=== PATIENT | male | born 1955 | race Caucasian/White ===

== ENCOUNTER 2017-02-04 21:30 | Inpatient (IN) | payer MEDICARE, MEDICAID ==
[2017-02-04] MEDS ORDERED: NORMAL SALINE 1000 ML 1,000 ML IV ONE ×2 (21:40→23:06)
[2017-02-04] MEDS ORDERED: NORMAL SALINE 1000 ML 1,000 ML IV PRN (21:40)
[2017-02-04 22:01] LABS: MEAN CORPUSCULAR HEMOGLOBIN 29.5 pg (27.0-33.4); MEAN CORPUSCULAR HGB CONC 34.2 g/dL (32.0-36.0); MEAN CORPUSCULAR VOLUME 86 fl (80-97); PLATELET COUNT 233 10^3/uL (150-450); RED BLOOD COUNT 4.74 10^6/uL (4.35-5.55); RED CELL DISTRIBUTION WIDTH 13.7 % (11.5-14.0); WHITE BLOOD COUNT 15.7 10^3/uL (4.0-10.5)
[2017-02-04 22:11] LABS: ALANINE AMINOTRANSFERASE 53 U/L (21-72); ALBUMIN 3.6 g/dL (3.5-5.0); ALKALINE PHOSPHATASE 56 U/L (38-126); ANION GAP 14 (5-19); ASPARTATE AMINO TRANSFERASE 27 U/L (17-59); BILIRUBIN,DIRECT 0.4 mg/dL (0.0-0.4); BILIRUBIN,TOTAL 0.7 mg/dL (0.2-1.3); BLOOD UREA NITROGEN 16 mg/dL (7-20); CALCIUM 8.6 mg/dL (8.4-10.2); CARBON DIOXIDE 21 mmol/L (22-30); CHLORIDE 105 mmol/L (98-107); GLUCOSE 148 mg/dL (75-110); POTASSIUM 3.3 mmol/L (3.6-5.0); SODIUM 140.1 mmol/L (137-145); TOTAL PROTEIN 6.3 g/dL (6.3-8.2)
[2017-02-04 22:26] LABS: ABSOLUTE LYMPHOCYTES# (MANUAL) 1.3 10^3/uL (0.5-4.7); ABSOLUTE MONOCYTES # (MANUAL) 0.6 10^3/uL (0.1-1.4); ABSOLUTE NEUTROPHILS# (MANUAL) 13.8 10^3/uL (1.7-8.2); BAND NEUTROPHILS % (MANUAL) 2 % (3-5); BASOPHILS % (MANUAL) 0 % (0-2); EOSINOPHILS % (MANUAL) 0 % (0-6); LYMPHOCYTES % (MANUAL) 8 % (13-45); MONOCYTES % (MANUAL) 4 % (3-13); SEGMENTED NEUTROPHILS % (MAN) 86 % (42-78); TOTAL CELLS COUNTED 100
[2017-02-04 22:28] LABS: TOXIC GRANULATION 1+; TOXIC VACUOLATION PRESENT
[2017-02-04 22:29] LABS: PLATELET COMMENT ADEQUATE; PLATELET LARGE PRESENT; SCHISTOCYTES SLIGHT; TEAR DROP CELLS SLIGHT
--- NOTE | 2017-02-04 22:44 | RADIOLOGY REPORT (SQ) ---
EXAM DESCRIPTION: CHEST PA/LAT COMPLETED DATE/TIME: 02/04/2017 10:09 pm REASON FOR STUDY: Fever/cough COMPARISON: None. EXAM PARAMETERS: NUMBER OF VIEWS: two views TECHNIQUE: Digital Frontal and Lateral radiographic views of the chest acquired. RADIATION DOSE: NA LIMITATIONS: none FINDINGS: LUNGS AND PLEURA: Bibasilar airspace opacities and small pleural effusions. No pneumothor ax. MEDIASTINUM AND HILAR STRUCTURES: No masses or contour abnormalities. HEART AND VASCULAR STRUCTURES: Heart normal size. No evidence for failure. BONES: No acute findings. HARDWARE: None in the chest. OTHER: No other significant finding. IMPRESSION: Bibasilar airspace opacities and small pleural effusions. TECHNICAL DOCUMENTATION: JOB ID: [id number] [place]-72 2010 [employer]- All Rights Reserved
[2017-02-04] MEDS ORDERED: LEVOFLOXACIN 750 MG/D5W RTU 750 MG/150 ML RTUPB IV ONE (23:05)
--- NOTE | 2017-02-04 23:10 | ER Document Report ---
ED General - General Chief Complaint: Altered Mental Status Stated Complaint: ALTERED MENTAL STATUS Time Seen by Provider: 02/04/17 22:00 Cannot obtain history due to: Mentally challenged Notes: Patient is a 7-year-old male with unknown past medical history, very poor historian, who presents from [facility] hospital[facility] with concerns of altered mental status, cough and fever. The patient himself does not know why he is here, who sent him here, or what symptoms he is having. He is only able to tell me that he has been coughing. Staff at the facility apparently state that this is his baseline TRAVEL OUTSIDE OF THE [place] IN LAST 30 DAYS: No - Related Data Allergies/Adverse Reactions: No Known Allergies Allergy (Unverified 02/05/17 00:51) Home Medications: Current Home Medications Acetaminophen [Tylenol] 650 mg PO Q4 PRN 02/05/17 [History] Benztropine Mesylate 1 mg PO HSP 02/05/17 [History] Buspirone HCl 10 mg PO BID 02/05/17 [History] Duloxetine HCl 30 mg PO DAILY 02/05/17 [History] Lisinopril/Hydrochlorothiazide [Lisinopril-Hctz 20-25 mg Tab] 1 tab PO DAILY [History] Naproxen 500 mg PO BID 02/05/17 [History] Risperidone [Risperdal] 3 mg PO BID 02/05/17 [History] Tizanidine HCl 4 mg PO Q6HP PRN 02/05/17 [History] Trazodone HCl [Desyrel 50 mg Tablet] 25 mg PO HSP 02/05/17 [History] Past Medical History - General Information source: Patient Cannot obtain history due to: Mentally challenged - Social History Smoking Status: Former Smoker Frequency of alcohol use: None Drug Abuse: None Lives with: Correction Family History: Reviewed & Not Pertinent Patient has suicidal ideation: No Patient has homicidal ideation: No Renal/ Medical History: Denies: Hx Peritoneal Dialysis Review of Systems - Review of Systems Notes: Constitutional: Positive for fever. HENT: Negative for sore throat. Eyes: Negative for visual changes. Cardiovascular: Negative for chest pain. Respiratory: Positive for cough Gastrointestinal: Negative for abdominal pain, vomiting or diarrhea. Genitourinary: Negative for dysuria. Musculoskeletal: Negative for back pain. Skin: Negative for rash. Neurological: Negative for headaches, weakness or numbness. 10 point ROS negative except as marked above and in HPI. Physical Exam - Vital signs Vitals: Temp Pulse Resp BP Pulse Ox 100.1 F 112 H 22 H 106/67 95 02/04/17 21:35 02/04/17 21:35 02/04/17 21:35 02/04/17 21:35 02/04/17 21:35 Interpretation: Tachycardic, Tachypneic, Febrile Notes: PHYSICAL EXAMINATION: GENERAL: Well-appearing, well-nourished and in no acute distress. HEAD: Atraumatic, normocephalic. EYES: Pupils equal round and reactive to light, extraocular movements intact, sclera anicteric, conjunctiva are normal. ENT: nares patent, oropharynx clear without exudates. Dry mucous membranes. NECK: Normal range of motion, supple without lymphadenopathy LUNGS: Breath sounds clear to auscultation bilaterally and equal. Slightly diminished in the bases bilaterally. HEART: Regular tachycardia ate and rhythm without murmurs ABDOMEN: Soft, nontender, normoactive bowel sounds. No guarding, no rebound. No masses appreciated. EXTREMITIES: Normal range of motion, no pitting or edema. No cyanosis. NEUROLOGICAL: No focal neurological deficits. Moves all extremities spontaneously and on command. PSYCH: Normal mood, normal affect. SKIN: Warm, Dry, normal turgor, no rashes or lesions noted. Course - Re-evaluation Re-evalutation: 02/04/17 23:08 Patient presents with altered mental status, very delayed in his responses, appears to have difficulty understanding some my questions, states he does not know how or why he is here. He is not able to provide additional meaningful history. Patient is overall nontoxic in appearance although his blood pressure is somewhat soft currently 94 and 65 and he has mild hypoxemia with a saturation of 93%. Patient was febrile for EMS and does meet sepsis criteria based on his tachycardia, tachypnea, and initial his chest x-ray shows a bilateral lower lobe pneumonia. He is receiving IV fluids and IV levofloxacin. Given his change in mental status as well as his borderline hypotension, I am not comfortable with discharging the patient and will discuss with hospitalist for admission. - Vital Signs Vital signs: Temp Pulse Resp BP Pulse Ox 97.6 F 81 16 108/74 97 02/05/17 03:24 02/05/17 03:24 02/05/17 03:24 02/05/17 03:24 02/05/17 03:24 - Laboratory Result Diagrams: 02/04/17 21:40 02/04/17 21:40 Laboratory results interpreted by me: 02/04/17 02/04/17 21:40 21:40 WBC 15.7 H Seg Neuts % (Manual) 86 H Band Neutrophils % 2 L Lymphocytes % (Manual) 8 L Abs Neuts (Manual) 13.8 H Potassium 3.3 L Carbon Dioxide 21 L Glucose 148 H - Diagnostic Test Radiology reviewed: Image reviewed, Reports reviewed Radiology results interpreted by me: 02/04/17 23:26 Chest x-ray: Bilateral basilar pneumonia Discharge - Discharge Clinical Impression: Bilateral pneumonia Qualifiers: Pneumonia type: due to unspecified organism Lung location: lower lobe of lung Qualified Code(s): J18.9 - Pneumonia, unspecified organism Sepsis Qualifiers: Sepsis type: sepsis due to unspecified organism Qualified Code(s): A41.9 - Sepsis, unspecified organism Condition: Fair Disposition: ADMITTED INPATIENT Admitting Provider: Hospitalist [facility] Admitted: [facility]
[2017-02-04 23:15] LABS: A TYPE INFLUENZA AG NEGATIVE (NEGATIVE); B INFLUENZA AG NEGATIVE (NEGATIVE)
[2017-02-05] MEDS ORDERED: LEVALBUTEROL HCL NEB 1.25 MG/3 ML AMPUL NEB PRN
[2017-02-05] MEDS ORDERED: POTASSIUM CHLORIDE 10 MEQ TABLET.SA PO ONE (00:04)
[2017-02-05] MEDS ORDERED: NICOTINE 14 MG/24 HR PATCH.TD24 TD PRN (00:05)
[2017-02-05] MEDS ORDERED: DEXTROSE 40% GEL 15 GM TUBE PO PRN ×2 (00:32)
[2017-02-05] MEDS ORDERED: DEXTROSE 50%-WATER 25 GM/50 ML DISP.SYRIN IV PRN ×2 (00:32)
[2017-02-05] MEDS ORDERED: GLUCAGON,HUMAN RECOMB 1 MG INJ IM PRN (00:32)
--- NOTE | 2017-02-05 01:16 | PDOC H&P ---
History of Present Illness Admission Date/PCP: 02/04/17 23:37 ELSA PICKARD PA-C History of Present Illness: SHAWN ALCALA is a 61 year old male who presents from a detention for altered mental status and fever. Patient is a very poor historian and is unsure why he is here. For the ER physician he was oriented 3 although delayed, for me patient is oriented only 2. He gives conflicting answers for instance when asked if he smokes. He reports he does not feel bad. Most of my questions are answered with not really or no. Patient was found to be febrile by EMS, and met sepsis criteria on admission. He is referred to hospital service for bilateral pneumonia and sepsis. Patient's medications are currently undergoing reconciliation. Current list is automatically generated by [facility] and does not reflect an accurate description of his medications. Due to the urgent/emergent nature of his condition, he is admitted without a full list. Past Medical History Medical History: None Neurological Medical History: Reports: Other - Questionable history of stroke or TBI Past Surgical History Past Surgical History: Reports: None Social History Smoking Status: Unknown if Ever Smoked Frequency of Alcohol Use: None Hx Recreational Drug Use: No - Advance Directive Resuscitation Status: Full Code Surrogate healthcare decision maker:: Malcolm Alcala, brother Family History Family History: Malignancy, Other - Alcohol abuse Parental Family History Reviewed: Yes Children Family History Reviewed: Yes Sibling(s) Family History Reviewed.: Yes Medication/Allergy Allergies/Adverse Reactions: No Known Allergies Allergy (Unverified 02/05/17 00:51) Review of Systems ROS unobtainable: Due to mental status Physical Exam Vital Signs: Temp Pulse Resp BP Pulse Ox 100.1 F 112 H 22 H 101/64 92 02/04/17 21:35 02/04/17 21:35 02/05/17 00:01 02/05/17 00:01 02/04/17 22:04 General appearance: PRESENT: no acute distress, well-developed, well-nourished Head exam: PRESENT: atraumatic, normocephalic Eye exam: PRESENT: conjunctival injection, conjunctiva pink, EOMI, PERRLA. ABSENT: scleral icterus Ear exam: PRESENT: normal external ear exam Mouth exam: PRESENT: dry mucosa, tongue midline Neck exam: ABSENT: JVD, lymphadenopathy, thyromegaly, tracheal deviation Respiratory exam: PRESENT: prolonged expiratory phas, rhonchi - Bilateral bases , symmetrical, unlabored. ABSENT: accessory muscle use, rales, tachypnea, wheezes Cardiovascular exam: PRESENT: RRR. ABSENT: diastolic murmur, rubs, systolic murmur Pulses: PRESENT: normal dorsalis pedis pul Vascular exam: PRESENT: normal capillary refill GI/Abdominal exam: PRESENT: normal bowel sounds, soft. ABSENT: distended, firm , guarding, mass, Ibrahim's sign, organolmegaly, rebound, rigid, tenderness Rectal exam: PRESENT: deferred Extremities exam: PRESENT: full ROM. ABSENT: calf tenderness, clubbing, pedal edema Neurological exam: PRESENT: alert, altered, awake, oriented to person, oriented to place, CN II-XII grossly intact. ABSENT: oriented to time, oriented to situation, motor sensory deficit Psychiatric exam: PRESENT: flat affect, unusual affect Skin exam: PRESENT: dry, intact, warm. ABSENT: cyanosis, rash Results Laboratory Results: 02/04/17 02/04/17 02/04/17 21:40 21:40 22:45 WBC 15.7 H Hgb 14.0 Hct 41.0 Plt Count 233 Seg Neuts % (Manual) 86 H Band Neutrophils % 2 L Sodium 140.1 Potassium 3.3 L Chloride 105 Carbon Dioxide 21 L Anion Gap 14 BUN 16 Creatinine 1.15 Glucose 148 H Calcium 8.6 Total Bilirubin 0.7 Direct Bilirubin 0.4 AST 27 ALT 53 Alkaline Phosphatase 56 Total Protein 6.3 Albumin 3.6 Influenza A (Rapid) NEGATIVE Influenza B (Rapid) NEGATIVE Impressions: Chest X-Ray 02/04/17 21:40 IMPRESSION: Bibasilar airspace opacities and small pleural effusions. Status: Imported from PACS Assessment & Plan - Diagnosis (1) Sepsis Qualifiers: Sepsis type: sepsis due to unspecified organism Qualified Code(s): A41.9 - Sepsis, unspecified organism Is this a current diagnosis for this admission?: Yes Plan: Patient meets sepsis criteria on admission including acute encephalopathy with source being bilateral pneumonia Selected Entries 02/04/17 21:35 Temperature 100.1 F Pulse Rate [ 112 H Left Finger] Respiratory 22 H Rate 02/04/17 21:40 WBC 15.7 H (2) Altered mental status Qualifiers: Altered mental status type: disorientation Qualified Code(s): R41.0 - Disorientation, unspecified Is this a current diagnosis for this admission?: Yes Plan: Likely secondary to underlying sepsis, but given that patient comes from a detention, suspect the patient may have some underlying disability and/or debility. Supportive care (3) Bilateral pneumonia Qualifiers: Pneumonia type: due to unspecified organism Lung location: lower lobe of lung Qualified Code(s): J18.9 - Pneumonia, unspecified organism Is this a current diagnosis for this admission?: Yes Plan: Initiate patient on treatment for community-acquired pneumonia with Rocephin and Levaquin Place patient on scheduled nebulized treatments and re-evaluate for improvement. PRN Xopenex Place patient on IV Solu-Medrol Obtain sputum culture (4) Hypokalemia Is this a current diagnosis for this admission?: Yes Plan: Monitor on telemetry with concern for arrhythmia. Replete and recheck (5) Impaired fasting glucose Is this a current diagnosis for this admission?: Yes Plan: Check hemoglobin A1c and place patient on before meals and at bedtime Accu-Cheks - Time Time Spent: 30 to 50 Minutes Medications reviewed and adjusted accordingly: Yes Anticipated discharge: Other - long-term Within: Other - Improvement of symptomatology - Inpatient Certification Based on my medical assessment, after consideration of the patient's comorbidities, presenting symptoms, or acuity I expect that the services needed warrant INPATIENT care.: Yes I certify that my determination is in accordance with my understanding of Medicare's requirements for reasonable and necessary INPATIENT services [42 CFR 412.3e].: Yes Medical Necessity: Need For IV Fluids, Need for Nebulizer Therapy and Monitoring of Response, Need for IV Antibiotics, Risk of Complication if Not Cared For in Hospital Post 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
[2017-02-05 04:09] LABS: APPEARANCE,URINE CLEAR; BILIRUBIN,URINE NEGATIVE (NEGATIVE); COLOR,URINE YELLOW; GLUCOSE, URINE 50 mg/dL (NEGATIVE); KETONES,URINE NEGATIVE (NEGATIVE); LEUKOCYTE ESTERASE,URINE NEGATIVE (NEGATIVE); NITRITE,URINE NEGATIVE (NEGATIVE); PROTEIN,URINE NEGATIVE (NEGATIVE); URINE SPECIFIC GRAVITY 1.012
[2017-02-05 05:46] LABS: ABSOLUTE LYMPHOCYTES (AUTO) 1.2 10^3/uL (0.5-4.7); ABSOLUTE MONOCYTES (AUTO) 1.4 10^3/uL (0.1-1.4); ABSOLUTE NEUT (AUTO) 9.3 10^3/uL (1.7-8.2); BASOPHILS % (AUTO) 0.4 % (0-2); EOSINOPHILS % (AUTO) 0.3 % (0-6); HEMATOCRIT 37.6 % (37.9-51.0); HEMOGLOBIN 12.8 g/dL (13.5-17.0); LYMPHOCYTES % (AUTO) 9.9 % (13-45); MEAN CORPUSCULAR HEMOGLOBIN 29.4 pg (27.0-33.4); MEAN CORPUSCULAR VOLUME 86 fl (80-97); MONOCYTES % (AUTO) 11.7 % (3-13); PLATELET COUNT 187 10^3/uL (150-450); RED BLOOD COUNT 4.35 10^6/uL (4.35-5.55); RED CELL DISTRIBUTION WIDTH 13.8 % (11.5-14.0); SEGMENTED NEUTROPHILS % (AUTO) 77.7 % (42-78); TOTAL CELLS COUNTED % (AUTO) 100 %
[2017-02-05] MEDS ORDERED: METHYLPREDNISOLONE INJ 40 MG/1 ML SDV IV SCH (06:00)
[2017-02-05 06:01] LABS: ANION GAP 12 (5-19); BLOOD UREA NITROGEN 18 mg/dL (7-20); CALCIUM 8.6 mg/dL (8.4-10.2); CARBON DIOXIDE 24 mmol/L (22-30); CHLORIDE 107 mmol/L (98-107); GLUCOSE 113 mg/dL (75-110); SODIUM 142.5 mmol/L (137-145)
[2017-02-05] MEDS: METHYLPREDNISOLONE INJ 40 MG/1 ML SDV IV SCH ×3 (06:51→22:12)
[2017-02-05] MEDS: NORMAL SALINE 1000 ML 1,000 ML IV PRN ×2 (06:51→19:46)
[2017-02-05] MEDS: IPRATROPIUM/ALBUTEROL 0.5-2.5 MG/3 ML AMPUL NEB SCH ×4 (08:45→20:41)
[2017-02-05] MEDS: GUAIFENESIN 600 MG TABLET.SA PO SCH ×2 (09:32→22:11)
[2017-02-05] MEDS: ENOXAPARIN SODIUM INJ 40 MG/0.4 ML DISP.SYRIN SUBCUT SCH (09:32)
[2017-02-05] MEDS: CEFTRIAXONE 1 GM/D5W RTU 1 GM/50 ML RTUPB IV SCH (09:33)
[2017-02-05] MEDS: FAMOTIDINE 20 MG TABLET PO SCH ×2 (09:33→22:11)
[2017-02-05] MEDS: LEVOFLOXACIN 750 MG/D5W RTU 750 MG/150 ML RTUPB IV SCH (11:00)
[2017-02-05] MEDS ORDERED: ACETAMINOPHEN 325 MG TABLET PO PRN ×2 (12:53)
[2017-02-05] MEDS ORDERED: TIZANIDINE HCL 4 MG TABLET PO PRN (12:53)
[2017-02-05] MEDS ORDERED: TRAZODONE HCL 50 MG TABLET PO PRN (12:53)
[2017-02-05] MEDS: INSULIN LISPRO 100 UNIT/ML 3 ML VIAL SUBCUT PRN ×3 (13:02→22:12)
[2017-02-05] MEDS: BUSPIRONE HCL 10 MG TABLET PO SCH (17:21)
[2017-02-05] MEDS ORDERED: RISPERIDONE 1 MG TABLET PO SCH (18:00)
[2017-02-05] MEDS ORDERED: (PENDING PHARMACY ID) (Risperidone [Risperdal] 3 MG) PO SCH (18:00)
[2017-02-05] MEDS: RISPERIDONE 1 MG TABLET PO SCH (22:11)
[2017-02-05] MEDS: BENZTROPINE MESYLATE 1 MG TABLET PO SCH (22:12)
[2017-02-06 05:47] LABS: ABSOLUTE LYMPHOCYTES (AUTO) 0.8 10^3/uL (0.5-4.7); ABSOLUTE MONOCYTES (AUTO) 0.5 10^3/uL (0.1-1.4); ABSOLUTE NEUT (AUTO) 13.2 10^3/uL (1.7-8.2); HEMATOCRIT 36.9 % (37.9-51.0); HEMOGLOBIN 12.3 g/dL (13.5-17.0); LYMPHOCYTES % (AUTO) 5.4 % (13-45); MEAN CORPUSCULAR HEMOGLOBIN 29.4 pg (27.0-33.4); MEAN CORPUSCULAR HGB CONC 33.4 g/dL (32.0-36.0); MEAN CORPUSCULAR VOLUME 88 fl (80-97); MONOCYTES % (AUTO) 3.7 % (3-13); PLATELET COUNT 220 10^3/uL (150-450); RED BLOOD COUNT 4.19 10^6/uL (4.35-5.55); RED CELL DISTRIBUTION WIDTH 14.2 % (11.5-14.0); SEGMENTED NEUTROPHILS % (AUTO) 90.9 % (42-78); TOTAL CELLS COUNTED % (AUTO) 100 %; WHITE BLOOD COUNT 14.5 10^3/uL (4.0-10.5)
[2017-02-06 06:25] LABS: ANION GAP 12 (5-19); BLOOD UREA NITROGEN 16 mg/dL (7-20); CALCIUM 8.9 mg/dL (8.4-10.2); CARBON DIOXIDE 19 mmol/L (22-30); CHLORIDE 111 mmol/L (98-107); GLUCOSE 180 mg/dL (75-110); POTASSIUM 4.3 mmol/L (3.6-5.0); SODIUM 141.6 mmol/L (137-145)
[2017-02-06] MEDS: NORMAL SALINE 1000 ML 1,000 ML IV PRN (06:45)
[2017-02-06] MEDS: METHYLPREDNISOLONE INJ 40 MG/1 ML SDV IV SCH ×3 (06:46→21:51)
[2017-02-06] MEDS: IPRATROPIUM/ALBUTEROL 0.5-2.5 MG/3 ML AMPUL NEB SCH ×4 (08:41→20:42)
[2017-02-06] MEDS: INSULIN LISPRO 100 UNIT/ML 3 ML VIAL SUBCUT PRN ×3 (09:05→17:23)
[2017-02-06] MEDS: FAMOTIDINE 20 MG TABLET PO SCH ×2 (09:06→21:51)
[2017-02-06] MEDS: CEFTRIAXONE 1 GM/D5W RTU 1 GM/50 ML RTUPB IV SCH (09:06)
[2017-02-06] MEDS: DULOXETINE HCL 30 MG CAPSULE.DR PO SCH (09:06)
[2017-02-06] MEDS: GUAIFENESIN 600 MG TABLET.SA PO SCH ×2 (09:06→21:51)
[2017-02-06] MEDS: ENOXAPARIN SODIUM INJ 40 MG/0.4 ML DISP.SYRIN SUBCUT SCH (09:06)
[2017-02-06] MEDS: BUSPIRONE HCL 10 MG TABLET PO SCH ×2 (09:07→17:23)
[2017-02-06] MEDS: RISPERIDONE 1 MG TABLET PO SCH ×2 (09:07→21:52)
[2017-02-06] MEDS: LEVOFLOXACIN 750 MG/D5W RTU 750 MG/150 ML RTUPB IV SCH (10:19)
--- NOTE | 2017-02-06 15:48 | Progress Note ---
Provider Note Provider Note: Patient seen in bed asleep. He was admitted after midnight and getting IV diurecticfor CHF.
--- NOTE | 2017-02-06 15:52 | PDOC PROGRESS REPORT ---
Subjective Progress Note for:: 02/06/17 Subjective:: 61-year-old male admitted with pneumonia currently lives at a long-term. Has been very sleepy last few days but more alert and awake and talkative today. He gets up and ambulates to the bathroom without assist. States he is feeling a little better not much Reason For Visit: PNEUMONIA Physical Exam Vital Signs: Temp Pulse Resp BP Pulse Ox 97.9 F 94 14 140/90 H 97 02/06/17 12:06 02/06/17 13:58 02/06/17 12:25 02/06/17 12:06 02/06/17 12:25 Intake & Output 02/05/17 02/06/17 02/07/17 06:59 06:59 06:59 Intake Total 750 3732 238 Output Total 450 Balance 300 3732 238 Weight 87.4 kg 87.7 kg General appearance: PRESENT: no acute distress, well-developed, well-nourished Head exam: PRESENT: atraumatic, normocephalic Eye exam: PRESENT: conjunctiva pink, EOMI, PERRLA. ABSENT: scleral icterus Ear exam: PRESENT: normal external ear exam Mouth exam: PRESENT: moist, tongue midline Neck exam: ABSENT: carotid bruit, JVD, lymphadenopathy, thyromegaly Respiratory exam: PRESENT: clear to auscultation sridhar. ABSENT: rales, rhonchi, wheezes Cardiovascular exam: PRESENT: RRR. ABSENT: diastolic murmur, rubs, systolic murmur Pulses: PRESENT: normal dorsalis pedis pul Vascular exam: PRESENT: normal capillary refill GI/Abdominal exam: PRESENT: normal bowel sounds, soft. ABSENT: distended, guarding, mass, organolmegaly, rebound, tenderness Rectal exam: PRESENT: deferred Extremities exam: PRESENT: full ROM. ABSENT: calf tenderness, clubbing, pedal edema Neurological exam: PRESENT: alert, awake, oriented to person, oriented to place , oriented to time, oriented to situation, CN II-XII grossly intact. ABSENT: motor sensory deficit Psychiatric exam: PRESENT: flat affect, normal mood, unusual affect. ABSENT: homicidal ideation, suicidal ideation Skin exam: PRESENT: dry, intact, warm. ABSENT: cyanosis, rash Results Laboratory Results: 02/06/17 05:28 02/06/17 05:28 02/06/17 02/06/17 05:28 05:28 WBC 14.5 H RBC 4.19 L Hgb 12.3 L Hct 36.9 L MCV 88 MCH 29.4 MCHC 33.4 RDW 14.2 H Plt Count 220 Seg Neutrophils % 90.9 H Lymphocytes % 5.4 L Monocytes % 3.7 Eosinophils % 0.0 Basophils % 0.0 Absolute Neutrophils 13.2 H Absolute Lymphocytes 0.8 Absolute Monocytes 0.5 Absolute Eosinophils 0.0 Absolute Basophils 0.0 Sodium 141.6 Potassium 4.3 Chloride 111 H Carbon Dioxide 19 L Anion Gap 12 BUN 16 Creatinine 0.87 Est GFR ( Amer) > 60 Est GFR (Non-Af Amer) > 60 Glucose 180 H Calcium 8.9 Impressions: Chest X-Ray 02/04/17 21:40 IMPRESSION: Bibasilar airspace opacities and small pleural effusions. Assessment & Plan - Diagnosis (1) Bipolar disease, chronic Is this a current diagnosis for this admission?: Yes Plan: Continue patient's home medications not to disrupt his home regimen for chronic anxiety and depression meds (2) Altered mental status Qualifiers: Altered mental status type: transient alteration of awareness Qualified Code(s): R40.4 - Transient alteration of awareness Is this a current diagnosis for this admission?: Yes Plan: Patient little altered and increased sleepiness. Shows some signs of improvement today from yesterday (3) Bilateral pneumonia Qualifiers: Pneumonia type: due to unspecified organism Lung location: lower lobe of lung Qualified Code(s): J18.9 - Pneumonia, unspecified organism Is this a current diagnosis for this admission?: Yes Plan: Continue IV antibiotics, nebulizers, steroids (4) Sepsis Qualifiers: Sepsis type: sepsis due to unspecified organism Qualified Code(s): A41.9 - Sepsis, unspecified organism Is this a current diagnosis for this admission?: Yes Plan: Patient was getting IV fluids. Will stop those for fear of over hydration. Increase p.o. intake today patient is more alert and awake - Plan Summary Plan Summary: Continue same plan of care continue to monitor cultures
[2017-02-06] MEDS: BENZTROPINE MESYLATE 1 MG TABLET PO SCH (21:51)
[2017-02-07] MEDS: METHYLPREDNISOLONE INJ 40 MG/1 ML SDV IV SCH ×3 (05:43→21:20)
[2017-02-07] MEDS: IPRATROPIUM/ALBUTEROL 0.5-2.5 MG/3 ML AMPUL NEB SCH ×4 (08:58→21:24)
[2017-02-07] MEDS: ENOXAPARIN SODIUM INJ 40 MG/0.4 ML DISP.SYRIN SUBCUT SCH (09:37)
[2017-02-07] MEDS: BUSPIRONE HCL 10 MG TABLET PO SCH ×2 (09:37→18:11)
[2017-02-07] MEDS: GUAIFENESIN 600 MG TABLET.SA PO SCH ×2 (09:37→21:19)
[2017-02-07] MEDS: DULOXETINE HCL 30 MG CAPSULE.DR PO SCH (09:37)
[2017-02-07] MEDS: RISPERIDONE 1 MG TABLET PO SCH ×2 (09:38→21:19)
[2017-02-07] MEDS: LEVOFLOXACIN 750 MG/D5W RTU 750 MG/150 ML RTUPB IV SCH (09:39)
[2017-02-07] MEDS: FAMOTIDINE 20 MG TABLET PO SCH ×2 (09:47→21:19)
[2017-02-07] MEDS: CEFTRIAXONE 1 GM/D5W RTU 1 GM/50 ML RTUPB IV SCH (11:09)
[2017-02-07] MEDS: INSULIN LISPRO 100 UNIT/ML 3 ML VIAL SUBCUT PRN ×3 (12:30→22:41)
--- NOTE | 2017-02-07 14:13 | PDOC PROGRESS REPORT ---
Subjective Subjective:: 61-year-old male admitted with pneumonia currently lives at a retirement. Has been very sleepy last few days but more alert and awake and talkative today than before. He gets up and ambulates to the bathroom without assist. States he is feeling a little better today. Encouraged him to ambulate in halls. Reason For Visit: PNEUMONIA Physical Exam Vital Signs: Temp Pulse Resp BP Pulse Ox 98.0 F 90 16 126/70 H 94 02/07/17 12:39 02/07/17 12:39 02/07/17 12:39 02/07/17 12:39 02/07/17 12:39 Intake & Output 02/06/17 02/07/17 02/08/17 06:59 06:59 06:59 Intake Total 3732 1477 340 Output Total 0 Balance 3732 1477 340 Weight 87.7 kg 86.6 kg General appearance: PRESENT: no acute distress, well-developed, well-nourished Head exam: PRESENT: atraumatic, normocephalic Eye exam: PRESENT: conjunctiva pink, EOMI, PERRLA. ABSENT: scleral icterus Ear exam: PRESENT: normal external ear exam Mouth exam: PRESENT: moist, tongue midline Neck exam: ABSENT: carotid bruit, JVD, lymphadenopathy, thyromegaly Respiratory exam: PRESENT: clear to auscultation sridhar. ABSENT: rales, rhonchi, wheezes Cardiovascular exam: PRESENT: RRR. ABSENT: diastolic murmur, rubs, systolic murmur Pulses: PRESENT: normal dorsalis pedis pul Vascular exam: PRESENT: normal capillary refill GI/Abdominal exam: PRESENT: normal bowel sounds, soft. ABSENT: distended, guarding, mass, organolmegaly, rebound, tenderness Rectal exam: PRESENT: deferred Extremities exam: PRESENT: full ROM. ABSENT: calf tenderness, clubbing, pedal edema Neurological exam: PRESENT: alert, awake, oriented to person, oriented to place , oriented to time, oriented to situation, CN II-XII grossly intact. ABSENT: motor sensory deficit Psychiatric exam: PRESENT: appropriate affect, normal mood. ABSENT: homicidal ideation, suicidal ideation Skin exam: PRESENT: dry, intact, warm. ABSENT: cyanosis, rash Results Laboratory Results: 02/06/17 05:28 02/06/17 05:28 02/05/17 03:35 Clean Catch Midstream Urine Culture - Final NO GROWTH 2 DAYS Impressions: Chest X-Ray 02/04/17 21:40 IMPRESSION: Bibasilar airspace opacities and small pleural effusions. Assessment & Plan - Diagnosis (1) Bilateral pneumonia Qualifiers: Pneumonia type: due to unspecified organism Lung location: lower lobe of lung Qualified Code(s): J18.9 - Pneumonia, unspecified organism Is this a current diagnosis for this admission?: Yes Plan: Continue IV antibiotics, nebulizers, steroids. stop IVF (2) Altered mental status Qualifiers: Altered mental status type: transient alteration of awareness Qualified Code(s): R40.4 - Transient alteration of awareness Is this a current diagnosis for this admission?: Yes Plan: Patient little altered and increased sleepiness. Shows some signs of improvement today from yesterday (3) Bipolar disease, chronic Is this a current diagnosis for this admission?: Yes Plan: Continue patient's home medications not to disrupt his home regimen for chronic anxiety and depression meds (4) Sepsis Qualifiers: Sepsis type: sepsis due to unspecified organism Qualified Code(s): A41.9 - Sepsis, unspecified organism Is this a current diagnosis for this admission?: Yes - Plan Summary Plan Summary: Anticipate discharge back to retirement next day or so
[2017-02-07] MEDS: BENZTROPINE MESYLATE 1 MG TABLET PO SCH (21:19)
[2017-02-08] MEDS: METHYLPREDNISOLONE INJ 40 MG/1 ML SDV IV SCH (05:58)
[2017-02-08] MEDS: IPRATROPIUM/ALBUTEROL 0.5-2.5 MG/3 ML AMPUL NEB SCH ×4 (07:47→21:05)
[2017-02-08 08:18] LABS: HEMATOCRIT 38.2 % (37.9-51.0); HEMOGLOBIN 12.7 g/dL (13.5-17.0); MEAN CORPUSCULAR HEMOGLOBIN 29.1 pg (27.0-33.4); MEAN CORPUSCULAR HGB CONC 33.4 g/dL (32.0-36.0); MEAN CORPUSCULAR VOLUME 87 fl (80-97); PLATELET COUNT 289 10^3/uL (150-450); RED BLOOD COUNT 4.37 10^6/uL (4.35-5.55); RED CELL DISTRIBUTION WIDTH 14.2 % (11.5-14.0); WHITE BLOOD COUNT 16.1 10^3/uL (4.0-10.5)
[2017-02-08 08:37] LABS: ANION GAP 12 (5-19); BLOOD UREA NITROGEN 24 mg/dL (7-20); CALCIUM 9.2 mg/dL (8.4-10.2); CARBON DIOXIDE 22 mmol/L (22-30); CHLORIDE 108 mmol/L (98-107); GLUCOSE 146 mg/dL (75-110); POTASSIUM 4.1 mmol/L (3.6-5.0); SODIUM 141.7 mmol/L (137-145)
[2017-02-08] MEDS: ENOXAPARIN SODIUM INJ 40 MG/0.4 ML DISP.SYRIN SUBCUT SCH (09:38)
[2017-02-08] MEDS: DULOXETINE HCL 30 MG CAPSULE.DR PO SCH (09:38)
[2017-02-08] MEDS: FAMOTIDINE 20 MG TABLET PO SCH ×2 (09:39→22:28)
[2017-02-08] MEDS: LEVOFLOXACIN 750 MG/D5W RTU 750 MG/150 ML RTUPB IV SCH (09:39)
[2017-02-08] MEDS: GUAIFENESIN 600 MG TABLET.SA PO SCH ×2 (09:39→22:28)
[2017-02-08] MEDS: RISPERIDONE 1 MG TABLET PO SCH ×2 (09:39→22:28)
[2017-02-08] MEDS: BUSPIRONE HCL 10 MG TABLET PO SCH ×2 (09:39→17:39)
[2017-02-08] MEDS ORDERED: PREDNISONE 20 MG TABLET PO SCH (11:00)
[2017-02-08] MEDS: CEFTRIAXONE 1 GM/D5W RTU 1 GM/50 ML RTUPB IV SCH (12:11)
--- NOTE | 2017-02-08 13:36 | PDOC PROGRESS REPORT ---
Subjective Progress Note for:: 02/08/17 Subjective:: Patient is seen on morning rounds. He is found sitting upright in his bed having just completed breakfast. He states that he has been ambulating in the hallways faculty. He does continue to a slight productive cough. He states that he felt chilled overnight but did not exhibit a fever. Overall, he reports that he is feeling much improved and is hopeful to be discharged back to the [facility] where he is a permanent resident within the next day or 2. He has no other questions or concerns at this time. Reason For Visit: PNEUMONIA Physical Exam Vital Signs: Temp Pulse Resp BP Pulse Ox 97.9 F 62 16 141/79 H 94 02/08/17 11:24 02/08/17 11:41 02/08/17 11:41 02/08/17 11:24 02/08/17 11:41 Intake & Output 02/07/17 02/08/17 02/09/17 06:59 06:59 06:59 Intake Total 1477 1379 355 Output Total 0 Balance 1477 1379 355 Weight 86.6 kg 86 kg General appearance: PRESENT: no acute distress, well-developed, well-nourished, other - Overweight Head exam: PRESENT: atraumatic, normocephalic Eye exam: PRESENT: conjunctiva pink, EOMI, PERRLA. ABSENT: scleral icterus Ear exam: PRESENT: normal external ear exam Mouth exam: PRESENT: moist, tongue midline Neck exam: ABSENT: carotid bruit, JVD, lymphadenopathy, thyromegaly Respiratory exam: PRESENT: clear to auscultation sridhar, symmetrical, unlabored. ABSENT: rales, rhonchi, wheezes Cardiovascular exam: PRESENT: RRR, +S1, +S2. ABSENT: diastolic murmur, rubs, systolic murmur Pulses: PRESENT: normal dorsalis pedis pul Vascular exam: PRESENT: normal capillary refill GI/Abdominal exam: PRESENT: normal bowel sounds, soft. ABSENT: distended, guarding, mass, organolmegaly, rebound, tenderness Rectal exam: PRESENT: deferred Extremities exam: PRESENT: full ROM. ABSENT: calf tenderness, clubbing, pedal edema Neurological exam: PRESENT: alert, awake, oriented to person, oriented to place , oriented to time, oriented to situation, CN II-XII grossly intact. ABSENT: motor sensory deficit Psychiatric exam: PRESENT: appropriate affect, normal mood. ABSENT: homicidal ideation, suicidal ideation Skin exam: PRESENT: dry, intact, warm. ABSENT: cyanosis, rash Results Laboratory Results: 02/08/17 08:05 02/08/17 08:05 02/08/17 02/08/17 08:05 08:05 WBC 16.1 H RBC 4.37 Hgb 12.7 L Hct 38.2 MCV 87 MCH 29.1 MCHC 33.4 RDW 14.2 H Plt Count 289 Sodium 141.7 Potassium 4.1 Chloride 108 H Carbon Dioxide 22 Anion Gap 12 BUN 24 H Creatinine 0.77 Est GFR ( Amer) > 60 Est GFR (Non-Af Amer) > 60 Glucose 146 H Calcium 9.2 02/05/17 03:35 Clean Catch Midstream Urine Culture - Final NO GROWTH 2 DAYS Impressions: Chest X-Ray 02/04/17 21:40 IMPRESSION: Bibasilar airspace opacities and small pleural effusions. Assessment & Plan - Diagnosis (1) Bilateral pneumonia Qualifiers: Pneumonia type: due to unspecified organism Lung location: lower lobe of lung Qualified Code(s): J18.9 - Pneumonia, unspecified organism Is this a current diagnosis for this admission?: Yes Plan: The patient was admitted under sepsis criteria with bibasilar opacities noted on chest x-ray suggestive of pneumonia. He was started on Rocephin and Levaquin empirically for community-acquired pneumonia. 1 bottle of the blood cultures has grown gram-positive cocci; identification and sensitivities are pending. Remaining blood cultures have no growth at 72 hours. Urine culture: No growth at 2 days. Respiratory status has improved and he is now maintaining oxygen saturations on room air. He denies dyspnea while ambulating and reports only an occasional, slightly, productive cough. Has now received days of Rocephin; will discontinue. On Levaquin day 4 of 7; states that I will be able to transition him to p.o. Levaquin and discharged to home for completion of antibiotic therapy tomorrow. (2) Impaired fasting glucose Is this a current diagnosis for this admission?: Yes Plan: Pain hemoglobin A1c in the morning. Accu-Cheks before meals and at bedtime with Humalog for sliding scale coverage. Blood glucose is likely elevated secondary to steroid dosing; have begin weaning steroids. (3) Altered mental status Qualifiers: Altered mental status type: transient alteration of awareness Qualified Code(s): R40.4 - Transient alteration of awareness Is this a current diagnosis for this admission?: Yes Plan: Improved; this was secondary to sepsis on admission related to bilateral pneumonia. Believe the patient now be at his baseline mentation in the setting of bipolar disease. (4) Sepsis Qualifiers: Sepsis type: sepsis due to unspecified organism Qualified Code(s): A41.9 - Sepsis, unspecified organism Is this a current diagnosis for this admission?: Yes Plan: Resolved. This was secondary to a bilateral pneumonia. One bottle of blood cultures sets is growing a gram-positive cocci. The patient was empirically placed on Rocephin and Levaquin for community-acquired pneumonia. He has received 4 days of Rocephin and this is now been discontinued. He continues on IV Levaquin. (5) Bipolar disease, chronic Is this a current diagnosis for this admission?: Yes Plan: Stable. The patient's home medications are continued. (6) Hypokalemia Is this a current diagnosis for this admission?: Yes Plan: Replete. (7) Leukocytosis Is this a current diagnosis for this admission?: Yes Plan: Secondary to pneumonia and IV steroids. He was transitioned to p.o. prednisone today. - Time Time Spent with patient: 15-24 minutes Medications reviewed and adjusted accordingly: Yes Anticipated discharge: Home Within: within 24 hours
[2017-02-08] MEDS: BENZTROPINE MESYLATE 1 MG TABLET PO SCH (22:28)
[2017-02-08] MEDS: INSULIN LISPRO 100 UNIT/ML 3 ML VIAL SUBCUT PRN (22:29)
[2017-02-09 06:42] LABS: HEMATOCRIT 36.7 % (37.9-51.0); HEMOGLOBIN 12.3 g/dL (13.5-17.0); MEAN CORPUSCULAR HEMOGLOBIN 29.2 pg (27.0-33.4); MEAN CORPUSCULAR HGB CONC 33.5 g/dL (32.0-36.0); MEAN CORPUSCULAR VOLUME 87 fl (80-97); PLATELET COUNT 274 10^3/uL (150-450); RED BLOOD COUNT 4.21 10^6/uL (4.35-5.55); WHITE BLOOD COUNT 17.2 10^3/uL (4.0-10.5)
[2017-02-09 07:06] LABS: ANION GAP 12 (5-19); BLOOD UREA NITROGEN 24 mg/dL (7-20); CALCIUM 8.7 mg/dL (8.4-10.2); CARBON DIOXIDE 23 mmol/L (22-30); CHLORIDE 106 mmol/L (98-107); GLUCOSE 105 mg/dL (75-110); POTASSIUM 3.7 mmol/L (3.6-5.0); SODIUM 141.3 mmol/L (137-145)
[2017-02-09] MEDS: IPRATROPIUM/ALBUTEROL 0.5-2.5 MG/3 ML AMPUL NEB SCH ×4 (08:18→20:26)
[2017-02-09] MEDS: PREDNISONE 20 MG TABLET PO SCH (10:12)
[2017-02-09] MEDS: ENOXAPARIN SODIUM INJ 40 MG/0.4 ML DISP.SYRIN SUBCUT SCH (10:12)
[2017-02-09] MEDS: RISPERIDONE 1 MG TABLET PO SCH ×2 (10:12→21:11)
[2017-02-09] MEDS: FAMOTIDINE 20 MG TABLET PO SCH ×2 (10:13→21:11)
[2017-02-09] MEDS: GUAIFENESIN 600 MG TABLET.SA PO SCH ×2 (10:13→21:11)
[2017-02-09] MEDS: DULOXETINE HCL 30 MG CAPSULE.DR PO SCH (10:13)
[2017-02-09] MEDS: LEVOFLOXACIN 750 MG TABLET PO SCH (10:13)
[2017-02-09] MEDS: BUSPIRONE HCL 10 MG TABLET PO SCH ×2 (10:13→18:19)
[2017-02-09] MEDS ORDERED: BENZOCAINE/MENTHOL SORE THROAT LOZENGE BUCCAL PRN (10:34)
--- NOTE | 2017-02-09 12:26 | RADIOLOGY REPORT (SQ) ---
EXAM DESCRIPTION: CHEST PA/LAT COMPLETED DATE/TIME: 02/09/2017 11:34 am REASON FOR STUDY: cough, dyspnea COMPARISON: 02/04/2017 EXAM PARAMETERS: NUMBER OF VIEWS: two views TECHNIQUE: Digital Frontal and Lateral radiographic views of the chest acquired. RADIATION DOSE: NA LIMITATIONS: none FINDINGS: LUNGS AND PLEURA: The previously described bibasilar airspace opacities have resolved. Th ere is some minimal residual blunting of the costophrenic angles which could represent tiny pleural e ffusions. MEDIASTINUM AND HILAR STRUCTURES: No masses or contour abnormalities. HEART AND VASCULAR STRUCTURES: Heart normal size. No evidence for failure. BONES: No acute findings. HARDWARE: None in the chest. OTHER: No other significant finding. IMPRESSION: Interval improvement as noted above TECHNICAL DOCUMENTATION: JOB ID: [id number] [employer]- All Rights Reserved
[2017-02-09] MEDS: CEFTRIAXONE 1 GM/D5W RTU 1 GM/50 ML RTUPB IV SCH (12:48)
--- NOTE | 2017-02-09 14:15 | PDOC PROGRESS REPORT ---
Subjective Progress Note for:: 02/09/17 Subjective:: Patient is seen on morning rounds. He is found sitting upright in his bed eating breakfast. He states that he has been ambulating in the hallways without difficulty. He does continue to a slight productive cough and today reports that he is sore throat. He also states that, overall, he is feeling more fatigued than yesterday. He denies fever, chills, chest pain, orthopnea, dyspnea, abdominal pain, nausea vomiting and diarrhea. He denies rhinorrhea, nasal congestion, ear pain. He has no other questions or concerns at this time. Reason For Visit: PNEUMONIA Physical Exam Vital Signs: Temp Pulse Resp BP Pulse Ox 98.2 F 72 14 117/84 94 02/09/17 11:57 02/09/17 12:26 02/09/17 12:26 02/09/17 11:57 02/09/17 12:26 Intake & Output 02/08/17 02/09/17 02/10/17 06:59 06:59 06:59 Intake Total 1379 1685 462 Balance 1379 1685 462 Weight 86 kg 86.4 kg General appearance: PRESENT: no acute distress, well-developed, well-nourished Head exam: PRESENT: atraumatic, normocephalic Eye exam: PRESENT: conjunctiva pink, EOMI, PERRLA. ABSENT: scleral icterus Ear exam: PRESENT: normal external ear exam Mouth exam: PRESENT: moist, tongue midline Throat exam: PRESENT: post pharyngeal erythema Neck exam: ABSENT: carotid bruit, JVD, lymphadenopathy, thyromegaly Respiratory exam: PRESENT: clear to auscultation sridhar, rhonchi - Occasional. ABSENT: rales, wheezes Cardiovascular exam: PRESENT: RRR. ABSENT: diastolic murmur, rubs, systolic murmur Pulses: PRESENT: normal dorsalis pedis pul Vascular exam: PRESENT: normal capillary refill GI/Abdominal exam: PRESENT: normal bowel sounds, soft. ABSENT: distended, guarding, mass, organolmegaly, rebound, tenderness Rectal exam: PRESENT: deferred Extremities exam: PRESENT: full ROM. ABSENT: calf tenderness, clubbing, pedal edema Neurological exam: PRESENT: alert, awake, oriented to person, oriented to place , oriented to time, oriented to situation, CN II-XII grossly intact. ABSENT: motor sensory deficit Psychiatric exam: PRESENT: appropriate affect, normal mood. ABSENT: homicidal ideation, suicidal ideation Skin exam: PRESENT: dry, intact, warm. ABSENT: cyanosis, rash Results Laboratory Results: 02/09/17 05:48 02/09/17 05:48 02/09/17 02/09/17 05:48 05:48 WBC 17.2 H RBC 4.21 L Hgb 12.3 L Hct 36.7 L MCV 87 MCH 29.2 MCHC 33.5 RDW 14.0 Plt Count 274 Sodium 141.3 Potassium 3.7 Chloride 106 Carbon Dioxide 23 Anion Gap 12 BUN 24 H Creatinine 0.85 Est GFR ( Amer) > 60 Est GFR (Non-Af Amer) > 60 Glucose 105 Calcium 8.7 Impressions: Chest X-Ray 02/09/17 00:00 IMPRESSION: Interval improvement as noted above Assessment & Plan - Diagnosis (1) Bilateral pneumonia Qualifiers: Pneumonia type: due to unspecified organism Lung location: lower lobe of lung Qualified Code(s): J18.9 - Pneumonia, unspecified organism Is this a current diagnosis for this admission?: Yes Plan: The patient was admitted under sepsis criteria with bibasilar opacities noted on chest x-ray suggestive of pneumonia. He was started on Rocephin and Levaquin empirically for community-acquired pneumonia. 1 bottle of the blood cultures has grown coag negative staph; likely a contaminant Remaining blood cultures have no growth at 4 days. Urine culture: No growth at 2 days. Repeat chest x-ray shows resolution of the bilateral consolidations. Respiratory status has improved and he is now maintaining oxygen saturations on room air. He denies dyspnea while ambulating and reports only an occasional, slightly, productive cough. Has now received 4 days of Rocephin; will discontinue. On Levaquin day 5 of 7; will transition him to p.o. Levaquin and discharged to home for completion of antibiotic therapy tomorrow if WBCs are stable or improved. (2) Impaired fasting glucose Is this a current diagnosis for this admission?: Yes Plan: Hemoglobin A1c 6.0% Accu-Cheks before meals and at bedtime with Humalog for sliding scale coverage. Blood glucose is likely elevated secondary to steroid dosing; have begin weaning steroids. (3) Altered mental status Qualifiers: Altered mental status type: transient alteration of awareness Qualified Code(s): R40.4 - Transient alteration of awareness Is this a current diagnosis for this admission?: Yes Plan: Improved; this was secondary to sepsis, present on admission, related to bilateral pneumonia. I believe the patient to now be at his baseline mentation in the setting of bipolar disease. (4) Sepsis Qualifiers: Sepsis type: sepsis due to unspecified organism Qualified Code(s): A41.9 - Sepsis, unspecified organism Is this a current diagnosis for this admission?: Yes Plan: Resolved. This was secondary to a bilateral pneumonia. One bottle of blood cultures sets is coag negative staph; I believe this to be a contaminant. The patient was empirically placed on Rocephin and Levaquin for community-acquired pneumonia. He has received 4 days of Rocephin and this is now discontinued. He continues on IV Levaquin. (5) Bipolar disease, chronic Is this a current diagnosis for this admission?: Yes Plan: Stable. The patient's home medications are continued. (6) Hypokalemia Is this a current diagnosis for this admission?: Yes Plan: Replete. (7) Leukocytosis Is this a current diagnosis for this admission?: Yes Plan: Secondary to pneumonia and IV steroids. He was transitioned to p.o. prednisone yesterday. WBCs have trended upward over the last 3 days (12.0--> 14.5--> 16.1--> 17.2); the patient's only new complaint is a sore throat. His lung sounds have improved and a repeat chest x-ray completed today shows resolution of his pneumonia. A believe the leukocytosis to be a reflection of adjustments made to steroids and not an indication of an acute infectious process. If WBCs are stable, or improved, the patient will be ready for discharge to home tomorrow in the morning. - Time Time Spent with patient: 25-34 minutes Medications reviewed and adjusted accordingly: Yes Anticipated discharge: Home Within: within 24 hours
[2017-02-09] MEDS: BENZTROPINE MESYLATE 1 MG TABLET PO SCH (21:11)
[2017-02-10 05:49] LABS: HEMATOCRIT 41.9 % (37.9-51.0); HEMOGLOBIN 14.1 g/dL (13.5-17.0); MEAN CORPUSCULAR HEMOGLOBIN 29.3 pg (27.0-33.4); MEAN CORPUSCULAR HGB CONC 33.7 g/dL (32.0-36.0); MEAN CORPUSCULAR VOLUME 87 fl (80-97); PLATELET COUNT 289 10^3/uL (150-450); RED BLOOD COUNT 4.83 10^6/uL (4.35-5.55); RED CELL DISTRIBUTION WIDTH 13.8 % (11.5-14.0); WHITE BLOOD COUNT 16.7 10^3/uL (4.0-10.5)
[2017-02-10 06:05] LABS: ANION GAP 10 (5-19); BLOOD UREA NITROGEN 23 mg/dL (7-20); CALCIUM 8.8 mg/dL (8.4-10.2); CARBON DIOXIDE 24 mmol/L (22-30); CHLORIDE 106 mmol/L (98-107); GLUCOSE 96 mg/dL (75-110); POTASSIUM 3.5 mmol/L (3.6-5.0); SODIUM 139.9 mmol/L (137-145)
[2017-02-10] MEDS: IPRATROPIUM/ALBUTEROL 0.5-2.5 MG/3 ML AMPUL NEB SCH ×3 (08:31→16:23)
[2017-02-10] MEDS: RISPERIDONE 1 MG TABLET PO SCH (10:53)
[2017-02-10] MEDS: PREDNISONE 20 MG TABLET PO SCH (10:54)
[2017-02-10] MEDS: FAMOTIDINE 20 MG TABLET PO SCH (10:54)
[2017-02-10] MEDS: BUSPIRONE HCL 10 MG TABLET PO SCH (10:54)
[2017-02-10] MEDS: LEVOFLOXACIN 750 MG TABLET PO SCH (10:54)
[2017-02-10] MEDS: GUAIFENESIN 600 MG TABLET.SA PO SCH (10:55)
[2017-02-10] MEDS: DULOXETINE HCL 30 MG CAPSULE.DR PO SCH (10:55)
[2017-02-10] MEDS: ENOXAPARIN SODIUM INJ 40 MG/0.4 ML DISP.SYRIN SUBCUT SCH (10:56)
--- NOTE | 2017-02-10 11:10 | PDOC TRANSFER SUMMARY ---
General - Admit/Disc Date/PCP Admission Date/Primary Care Provider: 02/04/17 23:37 ELSA PICKARD PA-C Discharge Date: 02/10/17 - Discharge Diagnosis (1) Bilateral pneumonia Is this a current diagnosis for this admission?: Yes (2) Impaired fasting glucose Is this a current diagnosis for this admission?: Yes (3) Altered mental status Is this a current diagnosis for this admission?: Yes (4) Sepsis Is this a current diagnosis for this admission?: Yes (5) Bipolar disease, chronic Is this a current diagnosis for this admission?: Yes (6) Hypokalemia Is this a current diagnosis for this admission?: Yes (7) Leukocytosis Is this a current diagnosis for this admission?: Yes - Additional Information Resuscitation Status: Full Code Discharge Diet: Regular Discharge Activity: Activity As Tolerated, Slowly Increase Activity Prescriptions: Benzocaine/Menthol [Chloraseptic Sore Throat Lozenge] 1 each BUCCAL Q1HP PRN # 20 lozenge PRN Reason: Guaifenesin [Mucinex Sr 600 mg Tablet.sa] 600 mg PO Q12 #30 tablet.sa Levofloxacin [Levaquin 750 mg Tablet] 750 mg PO DAILY #2 tablet Nicotine [Nicoderm 14 mg/24 Hr Transdermal Patch] 1 each TD DAILYP PRN #14 patch.td24 PRN Reason: Prednisone [Deltasone 20 mg Tablet] 20 mg PO ASDIR PRN #9 tablet PRN Reason: Home Medications: Acetaminophen [Tylenol] 650 mg PO Q4HP PRN 02/05/17 Benztropine Mesylate 1 mg PO QHS 02/05/17 Buspirone HCl 10 mg PO BID 02/05/17 Duloxetine HCl 30 mg PO DAILY 02/05/17 Lisinopril/Hydrochlorothiazide [Lisinopril-Hctz 20-25 mg Tab] 1 tab PO DAILY Naproxen 500 mg PO BID 02/05/17 Risperidone [Risperdal] 3 mg PO BID 02/05/17 Tizanidine HCl 4 mg PO Q6HP PRN 02/05/17 Trazodone HCl [Desyrel 50 mg Tablet] 25 mg PO HSP PRN 02/05/17 Benzocaine/Menthol [Chloraseptic Sore Throat Lozenge] 1 each BUCCAL Q1HP PRN # 20 lozenge 02/10/17 Guaifenesin [Mucinex Sr 600 mg Tablet.sa] 600 mg PO Q12 #30 tablet.sa 02/10/17 Levofloxacin [Levaquin 750 mg Tablet] 750 mg PO DAILY #2 tablet 02/10/17 Nicotine [Nicoderm 14 mg/24 Hr Transdermal Patch] 1 each TD DAILYP PRN #14 patch.td24 02/10/17 Prednisone [Deltasone 20 mg Tablet] 20 mg PO ASDIR PRN #9 tablet 02/10/17 History of Present Illness Admission Date/PCP: 02/04/17 23:37 ELSA PICKARD PA-C History of Present Illness: SHAWN BURGESS is a 61 year old male who presents from a care home for altered mental status and fever. Patient is a very poor historian and is unsure why he is here. For the ER physician he was oriented 3 although delayed, for me patient is oriented only 2. He gives conflicting answers for instance when asked if he smokes. He reports he does not feel bad. Most of my questions are answered with not really or no. Patient was found to be febrile by EMS, and met sepsis criteria on admission. He is referred to hospital service for bilateral pneumonia and sepsis. Patient's medications are currently undergoing reconciliation. Current list is automatically generated by [employer] and does not reflect an accurate description of his medications. Due to the urgent/emergent nature of his condition, he is admitted without a full list. Hospital Course Hospital Course: The patient was admitted with sepsis secondary to a bilateral pneumonia. He was empirically placed on IV Rocephin and Levaquin for coverage of community- acquired pneumonias. Blood cultures were obtained with the only organism grown determined to be a contaminant. He was initially delirious, however, mental status improved and he is now at his presumed baseline. He was provided supportive therapy with supplemental oxygen, Mucinex, nebulizer treatments, incentive spirometry. He has been weaned to room air and is now ambulatory while maintaining oxygen saturations with appropriate heart rate. He received a total of 4 days of Rocephin and will be discharged to complete a seven-day course of Levaquin. He is provided prescriptions for Cepacol cough drops, Mucinex, and NicoDerm patch, prednisone taper, and Levaquin. It is recommended that he follow-up with his primary care provider within 1-2 weeks. At time of discharge, the patient is stable, alert and orientated x4, maintaining oxygen saturations well while ambulatory on room air, and tolerating a regular diet. Physical Exam Vital Signs: Temp Pulse Resp BP Pulse Ox 98.2 F 89 16 127/83 H 97 02/10/17 07:26 02/10/17 08:31 02/10/17 08:31 02/10/17 07:26 02/10/17 08:31 Intake & Output 02/09/17 02/10/17 02/11/17 06:59 06:59 06:59 Intake Total 1685 1449 Balance 1685 1449 Weight 86.4 kg 83.4 kg General appearance: PRESENT: no acute distress, well-developed, well-nourished, other - Overweight Head exam: PRESENT: atraumatic, normocephalic Eye exam: PRESENT: conjunctiva pink, EOMI, PERRLA. ABSENT: scleral icterus Ear exam: PRESENT: normal external ear exam Mouth exam: PRESENT: moist, tongue midline Neck exam: ABSENT: carotid bruit, JVD, lymphadenopathy, thyromegaly Respiratory exam: PRESENT: clear to auscultation sridhar. ABSENT: rales, rhonchi, wheezes Cardiovascular exam: PRESENT: RRR. ABSENT: diastolic murmur, rubs, systolic murmur Pulses: PRESENT: normal dorsalis pedis pul Vascular exam: PRESENT: normal capillary refill GI/Abdominal exam: PRESENT: normal bowel sounds, soft. ABSENT: distended, guarding, mass, organolmegaly, rebound, tenderness Rectal exam: PRESENT: deferred Extremities exam: PRESENT: full ROM. ABSENT: calf tenderness, clubbing, pedal edema Neurological exam: PRESENT: alert, awake, oriented to person, oriented to place , oriented to time, oriented to situation, CN II-XII grossly intact. ABSENT: motor sensory deficit Psychiatric exam: PRESENT: appropriate affect, normal mood. ABSENT: homicidal ideation, suicidal ideation Skin exam: PRESENT: dry, intact, warm. ABSENT: cyanosis, rash Results Laboratory Results: 02/10/17 05:31 02/10/17 05:31 02/10/17 02/10/17 05:31 05:31 WBC 16.7 H RBC 4.83 Hgb 14.1 Hct 41.9 MCV 87 MCH 29.3 MCHC 33.7 RDW 13.8 Plt Count 289 Sodium 139.9 Potassium 3.5 L Chloride 106 Carbon Dioxide 24 Anion Gap 10 BUN 23 H Creatinine 0.84 Est GFR ( Amer) > 60 Est GFR (Non-Af Amer) > 60 Glucose 96 Calcium 8.8 02/05/17 01:08 Blood Blood Culture - Final Staphylococcus Auricularis 02/05/17 00:15 Blood Blood Culture - Final NO GROWTH IN 5 DAYS Impressions: Chest X-Ray 02/09/17 00:00 IMPRESSION: Interval improvement as noted above Transfer Plan - Disposition Transfer Plan: Discharge to the [facility] ([facility]); patient's resident - Time Spent with Patient Time spent with patient: Less than 30 Minutes Qualifiers PATEINT BEING DISCHARGED WITH ANY OF THE FOLLOWING DIAGNOSIS?: No
[2017-02-10 12:28] VITALS: BP 115/89
== END 2017-02-10 16:58 | DRG 871 ==
LOC: ER 21:30 → EH 23:37 → 3W 02-05 01:35
PROVIDERS: ADMIT Family Medicine; ATTEND Family Medicine
PROC: 3E0234Z Introduction of Serum, Toxoid and Vaccine into Muscle, Percutaneous Approach (ICD-10-PCS; principal; 2017-02-05)
DX: A41.9 Sepsis, unspecified organism (principal); J18.9 Pneumonia, unspecified organism; G93.40 Encephalopathy, unspecified; R73.01 Impaired fasting glucose; F31.9 Bipolar disorder, unspecified; E87.6 Hypokalemia; F41.9 Anxiety disorder, unspecified; T38.0X5A Adverse effect of glucocorticoids and synthetic analogues, initial encounter; Z79.899 Other long term (current) drug therapy; Z87.891 Personal history of nicotine dependence; Z80.9 Family history of malignant neoplasm, unspecified; Z81.1 Family history of alcohol abuse and dependence
CPT/HCPCS: 36415; 71020; 71046; 80048; 80053; 81001; 82962; 83036; 83605; 83735; 84443; 85025; 85027; 87040; 87077; 87086; 87186; 87804; 94640; 99285; J0696; J1650; J1815; J1956; J2920; J3490; J7030; J7512; J7620

== ENCOUNTER 2017-08-27 16:22 | Emergency (ER) | payer MEDICARE, MEDICAID ==
--- NOTE | 2017-08-27 17:10 | ER Document Report ---
ED General - General Chief Complaint: Altered Mental Status Stated Complaint: WEAKNESS Time Seen by Provider: 08/27/17 16:43 Cannot obtain history due to: Altered mental status TRAVEL OUTSIDE OF THE [place] IN LAST 30 DAYS: No - HPI Notes: 62-year-old male with history of hypertension, insomnia, bipolar, and possible dementia presents with "not feeling well" for the past 2 weeks. He reports burning epigastric pain radiating into his chest. He denies diarrhea or vomiting. He had nausea earlier today. He has had occasional shortness of breath with nonproductive cough. Also reports some discomfort with urination. He reports about 4 months of diffuse back pain radiating into both legs. Unsure how much of this history is accurate as according to the nurse, any questions he asked he stated "yes." According to his MAR, he stopped penicillin on the . Unsure what this was treating. Patient states that he is "not good." Assisted living facility states that he has been complaining of not feeling "right" for the past several weeks. Today, he had difficulty walking. - Related Data Allergies/Adverse Reactions: No Known Allergies Allergy (Unverified 02/05/17 00:51) Past Medical History - Social History Smoking Status: Unknown if Ever Smoked Frequency of alcohol use: None Family History: Reviewed & Not Pertinent Patient has suicidal ideation: No Patient has homicidal ideation: No - Past Medical History Cardiac Medical History: Reports: Hx Hypertension Renal/ Medical History: Denies: Hx Peritoneal Dialysis Psychiatric Medical History: Denies: Hx Depression Review of Systems - Review of Systems -: Yes ROS unobtainable due to patient's medical condition - ams, dementia Constitutional: denies: Fever EENT: No symptoms reported Cardiovascular: Chest pain Respiratory: Cough, Short of breath Gastrointestinal: Abdominal pain, Nausea. denies: Diarrhea, Vomiting Genitourinary: Dysuria Musculoskeletal: Back pain Skin: denies: Rash Neurological/Psychological: Dementia Physical Exam - Vital signs Vitals: Temp Pulse Resp BP Pulse Ox 99.2 F 108 H 14 122/65 95 08/27/17 16:47 08/27/17 16:47 08/27/17 16:47 08/27/17 16:47 08/27/17 16:47 - Notes Notes: PHYSICAL EXAMINATION: GENERAL: Well-appearing, well-nourished and in no acute distress. HEAD: Atraumatic, normocephalic. EYES: Pupils equal round and reactive to light, extraocular movements intact, conjunctiva are normal. ENT: nares patent, oropharynx clear without exudates. Moist mucous membranes. NECK: Normal range of motion, supple without lymphadenopathy LUNGS: Breath sounds clear to auscultation bilaterally and equal. No wheezes rales or rhonchi. HEART: tachycardic rate and rhythm, no chest wall tenderness ABDOMEN: Soft, nontender, normoactive bowel sounds. No guarding, no rebound. No masses appreciated. EXTREMITIES: Normal range of motion, no pitting or edema. No cyanosis. No joint swelling. No back tenderness. NEUROLOGICAL: Cranial nerves grossly intact. Normal speech, normal gait. Normal sensory and motor exams. Oriented to self only. PSYCH: Depressed mood, flat affect. SKIN: Warm, Dry, normal turgor, no rashes or lesions noted. Course - Re-evaluation Re-evalutation: 08/27/17 17:09 labs and imaging ordered. 08/27/17 21:40 Workup has been unremarkable. Discussed with caregivers and apparently this is his baseline. They were just concerned because he was unable to walk. He has been ambulatory in the emergency department. No signs of infectious process, stroke, or other acute life-threatening injury. Will discharge. At this time will discharge with return precautions and follow-up recommendations. Verbal discharge instructions given a the bedside and opportunity for questions given. Medication warnings reviewed. Patient is in agreement with this plan and has verbalized understanding of return precautions and the need for primary care follow-up in the next 24-72 hours. - Vital Signs Vital signs: Temp Pulse Resp BP Pulse Ox 99.2 F 108 H 14 122/65 96 08/27/17 16:47 08/27/17 16:47 08/27/17 16:47 08/27/17 16:47 08/27/17 16:59 - Laboratory Result Diagrams: 08/27/17 16:40 08/27/17 16:40 Laboratory results interpreted by me: 08/27/17 08/27/17 08/27/17 16:40 16:40 20:45 RDW 14.5 H Carbon Dioxide 21 L BUN 23 H AST 65 H ALT 91 H Ammonia < 8.7 L Urine Urobilinogen 08/27/17 20:45 RDW Carbon Dioxide BUN AST ALT Ammonia Urine Urobilinogen 2.0 H Discharge - Discharge Clinical Impression: Dementia Qualifiers: Dementia type: unspecified type Condition: Good Disposition: HOME-ASSISTED LIVING Additional Instructions: Return for any worsening or concerning symptoms. Dementia The exam shows a decrease in mental ability called dementia. Signs of dementia include a gradual loss of memory and a decreased ability to reason and solve problems. Personality changes, hostility, lack of self-care, and loss of bladder or bowel control are later signs of dementia. In these later stages, patients may become confused, lost, fearful, or agitated, even in familiar places. Alzheimer's disease is the most common type of dementia. It has no known cause or specific treatment. Other causes include alcohol and drug abuse, medication effects (especially tranquilizers and sleeping pills), strokes, head injuries, and brain tumors. Sometimes severe depression in an elderly person is mistaken for dementia, and this can be treated if recognized. A complete medical evaluation and ongoing care with a doctor is important. Most people with dementia need help or supervision with daily living. Some may be able to live independently with occasional help; others require foster care or even mcc placement. Alcohol, sedatives, and antihistamines may make the symptoms worse and should be avoided. Alzheimer's disease support groups are available in some communities and can be very valuable to the entire family. Prescription medication can ease the symptoms of Alzheimer's disease in some patients. Please arrange for medical follow-up. Return here if there is a sudden change in mental function, inability to move an arm or leg, inability to speak, fever, or any other significant change. Referrals: ELSA PICKARD PA-C [Primary Care Provider] - Follow up as needed
[2017-08-27 17:20] LABS: ABSOLUTE BASOPHILS # (AUTO) 0.1 10^3/uL (0.0-0.2); ABSOLUTE EOSINOPHILS # (AUTO) 0.1 10^3/uL (0.0-0.6); ABSOLUTE LYMPHOCYTES (AUTO) 1.7 10^3/uL (0.5-4.7); ABSOLUTE MONOCYTES (AUTO) 0.7 10^3/uL (0.1-1.4); ABSOLUTE NEUT (AUTO) 5.8 10^3/uL (1.7-8.2); BASOPHILS % (AUTO) 0.8 % (0-2); EOSINOPHILS % (AUTO) 1.3 % (0-6); HEMATOCRIT 40.5 % (37.9-51.0); MEAN CORPUSCULAR HEMOGLOBIN 30.1 pg (27.0-33.4); MEAN CORPUSCULAR HGB CONC 34.5 g/dL (32.0-36.0); MEAN CORPUSCULAR VOLUME 87 fl (80-97); MONOCYTES % (AUTO) 8.2 % (3-13); PLATELET COUNT 278 10^3/uL (150-450); RED BLOOD COUNT 4.64 10^6/uL (4.35-5.55); RED CELL DISTRIBUTION WIDTH 14.5 % (11.5-14.0); SEGMENTED NEUTROPHILS % (AUTO) 69.7 % (42-78); TOTAL CELLS COUNTED % (AUTO) 100 %; WHITE BLOOD COUNT 8.3 10^3/uL (4.0-10.5)
[2017-08-27 17:28] LABS: ALANINE AMINOTRANSFERASE 91 U/L (21-72); ALBUMIN 4.2 g/dL (3.5-5.0); ALKALINE PHOSPHATASE 64 U/L (38-126); ANION GAP 18 (5-19); ASPARTATE AMINO TRANSFERASE 65 U/L (17-59); BILIRUBIN,DIRECT 0.4 mg/dL (0.0-0.4); BILIRUBIN,TOTAL 0.5 mg/dL (0.2-1.3); BLOOD UREA NITROGEN 23 mg/dL (7-20); CALCIUM 9.4 mg/dL (8.4-10.2); CARBON DIOXIDE 21 mmol/L (22-30); CHLORIDE 103 mmol/L (98-107); GLUCOSE 101 mg/dL (75-110); LIPASE 53.3 U/L (23-300); POTASSIUM 4.1 mmol/L (3.6-5.0); SODIUM 142.1 mmol/L (137-145); TOTAL PROTEIN 7.2 g/dL (6.3-8.2)
[2017-08-27 17:31] LABS: ALCOHOL < 10 mg/dL (NONE DETECTED)
[2017-08-27 17:39] LABS: NT PRO BNP 23 pg/mL (5-900)
[2017-08-27 17:41] LABS: TROPONIN I < 0.012 ng/mL
--- NOTE | 2017-08-27 18:10 | RADIOLOGY REPORT (SQ) ---
EXAM DESCRIPTION: CHEST 2 VIEWS COMPLETED DATE/TIME: 08/27/2017 5:54 pm REASON FOR STUDY: chest pain COMPARISON: Chest x-ray 02/09/2017. EXAM PARAMETERS: NUMBER OF VIEWS: two views TECHNIQUE: Digital Frontal and Lateral radiographic views of the chest acquired. RADIATION DOSE: NA LIMITATIONS: none FINDINGS: LUNGS AND PLEURA: No consolidation, pneumothorax or pleural effusion. MEDIASTINUM AND HILAR STRUCTURES: No masses or contour abnormalities. HEART AND VASCULAR STRUCTURES: Heart normal size. No evidence for failure. BONES: No acute findings. HARDWARE: None in the chest. IMPRESSION: NO ACUTE RADIOGRAPHIC FINDING IN THE CHEST. TECHNICAL DOCUMENTATION: JOB ID: [id number] 2010 [employer]- All Rights Reserved Reading location - IP/workstation name: [email or web address]
--- NOTE | 2017-08-27 18:11 | RADIOLOGY REPORT (SQ) ---
EXAM DESCRIPTION: CT HEAD WITHOUT COMPLETED DATE/TIME: 08/27/2017 6:03 pm REASON FOR STUDY: ams COMPARISON: None. TECHNIQUE: Axial images acquired through the brain without intravenous contrast. Images reviewed wi th bone, brain and subdural windows. Additional sagittal and coronal reconstructions were generated. Images stored on PACS. All CT scanners at this facility use dose modulation, iterative reconstruction, and/or weight based d osing when appropriate to reduce radiation dose to as low as reasonably achievable (ALARA). [facility]: Dose Right [facility]: CareDose [facility]: Dose Right [facility]: Teradose 4D [facility]: The Hitch RADIATION DOSE: CT Rad equipment meets quality standard of care and radiation dose reduction techniq ues were employed. CTDIvol: 53.2 mGy. DLP: 1070 mGy-cm. mGy. LIMITATIONS: None. FINDINGS: VENTRICLES: Prominent. CEREBRUM: No masses. No hemorrhage. No midline shift. Areas of low density in the white matter mos t likely due to chronic micro-vascular ischemic change. No evidence for acute infarction. CEREBELLUM: No masses. No hemorrhage. No alteration of density. No evidence for acute infarction. EXTRAAXIAL SPACES: Mild age-related involutional change. No fluid collections. No masses. ORBITS AND GLOBE: No intra- or extraconal masses. Normal contour of globe without masses. CALVARIUM: No fracture. PARANASAL SINUSES: No fluid or mucosal thickening. SOFT TISSUES: No mass or hematoma. OTHER: No other significant finding. IMPRESSION: MILD CHRONIC CHANGES OF ATROPHY AND MICROVASCULAR ISCHEMIA. NO ACUTE PROCESS. EVIDENCE OF ACUTE STROKE: NO. TECHNICAL DOCUMENTATION: JOB ID: [id number] Quality ID # [id number]: Final reports with documentation of one or more dose reduction techniques (e.g., Au tomated exposure control, adjustment of the mA and/or kV according to patient size, use of iterative reconstruction technique) 2010 [employer]- All Rights Reserved Reading location - IP/workstation name: [email or web address]
[2017-08-27 21:01] LABS: APPEARANCE,URINE CLEAR; BILIRUBIN,URINE NEGATIVE (NEGATIVE); COLOR,URINE YELLOW; GLUCOSE, URINE NEGATIVE (NEGATIVE); KETONES,URINE NEGATIVE (NEGATIVE); LEUKOCYTE ESTERASE,URINE NEGATIVE (NEGATIVE); NITRITE,URINE NEGATIVE (NEGATIVE); PROTEIN,URINE NEGATIVE (NEGATIVE); URINE SPECIFIC GRAVITY 1.021
[2017-08-27 21:17] LABS: URINE AMPHETAMINES SCREEN NEGATIVE; URINE BARBITURATES SCREEN NEGATIVE; URINE BENZODIAZEPINES SCREEN NEGATIVE; URINE COCAINE SCREEN NEGATIVE; URINE MARIJUANA (THC) SCREEN NEGATIVE; URINE METHADONE SCREEN NEGATIVE; URINE PHENCYCLIDINE SCREEN NEGATIVE
--- NOTE | 2017-08-27 22:09 | EKG REPORT ---
SEVERITY:- BORDERLINE ECG - SINUS RHYTHM BORDERLINE T WAVE ABNORMALITIES : Confirmed by: Tyrel Rodriguez 27-Aug-2017 22:08:22
[2017-08-29 01:48] VITALS: BP 128/62
== END 2017-08-27 22:18 | disposition home health service (06) ==
LOC: ER 16:22
DX: F03.90 Unspecified dementia, unspecified severity, without behavioral disturbance, psychotic disturbance, mood disturbance, and anxiety (principal); R10.13 Epigastric pain; R53.1 Weakness; I10 Essential (primary) hypertension
CPT/HCPCS: 36415; 70450; 71046; 80053; 80307; 81001; 82140; 83690; 83735; 83880; 84484; 85025; 93005; 93010; 99285

== ENCOUNTER 2017-09-07 17:26 | Emergency (ER) | payer MEDICARE, MEDICAID ==
--- NOTE | 2017-09-07 18:52 | ER Document Report ---
ED Medical Screen (RME) - General Chief Complaint: Back Pain Stated Complaint: BACK PAIN Time Seen by Provider: 09/07/17 18:50 Mode of Arrival: Wheelchair Information source: Patient Notes: I called marlena Perea this is a 62-year-old male who has been complaining of low back pain for 2 weeks. He started walking with your regular gait throwing both of his legs forward with internally rotated hips. Walking like he has cerebral palsy. Marlena [place] said that this is a complete change in the PA at [facility] send him back to the emergency room today for this to be evaluated. There is no fever. He was seen August 27 in the emergency department for other chief complaint and did have a negative CT of the head. There has been no injury or fall. TRAVEL OUTSIDE OF THE [place] IN LAST 30 DAYS: No - Related Data Allergies/Adverse Reactions: No Known Allergies Allergy (Unverified 02/05/17 00:51) Past Medical History - Social History Chew tobacco use (# tins/day): Yes Frequency of alcohol use: None Drug Abuse: None - Past Medical History Cardiac Medical History: Reports: Hx Hypertension Renal/ Medical History: Denies: Hx Peritoneal Dialysis Psychiatric Medical History: Denies: Hx Depression - Immunizations History of Influenza Vaccine for 11/2016 - 04/2017 Season: Yes Physical Exam - Vital signs Vitals: Temp Pulse Resp BP Pulse Ox 98.2 F 94 16 127/94 H 96 09/07/17 17:34 09/07/17 17:34 09/07/17 17:34 09/07/17 17:34 09/07/17 17:34 Course - Vital Signs Vital signs: Temp Pulse Resp BP Pulse Ox 98.2 F 94 16 127/94 H 96 09/07/17 17:34 09/07/17 17:34 09/07/17 17:34 09/07/17 17:34 09/07/17 17:34 Doctor's Discharge - Discharge Referrals: LESA PICKARD PA-C [Primary Care Provider] - Follow up as needed
[2017-09-07 19:24] LABS: ABSOLUTE BASOPHILS # (AUTO) 0.1 10^3/uL (0.0-0.2); ABSOLUTE EOSINOPHILS # (AUTO) 0.3 10^3/uL (0.0-0.6); ABSOLUTE MONOCYTES (AUTO) 0.7 10^3/uL (0.1-1.4); ABSOLUTE NEUT (AUTO) 5.7 10^3/uL (1.7-8.2); EOSINOPHILS % (AUTO) 2.9 % (0-6); HEMATOCRIT 44.6 % (37.9-51.0); HEMOGLOBIN 15.4 g/dL (13.5-17.0); LYMPHOCYTES % (AUTO) 22.9 % (13-45); MEAN CORPUSCULAR HEMOGLOBIN 30.1 pg (27.0-33.4); MEAN CORPUSCULAR HGB CONC 34.4 g/dL (32.0-36.0); MEAN CORPUSCULAR VOLUME 88 fl (80-97); MONOCYTES % (AUTO) 7.7 % (3-13); PLATELET COUNT 279 10^3/uL (150-450); RED CELL DISTRIBUTION WIDTH 14.2 % (11.5-14.0); SEGMENTED NEUTROPHILS % (AUTO) 65.5 % (42-78); TOTAL CELLS COUNTED % (AUTO) 100 %; WHITE BLOOD COUNT 8.7 10^3/uL (4.0-10.5)
--- NOTE | 2017-09-07 19:26 | ER Document Report ---
ED General - General Chief Complaint: Back Pain Stated Complaint: BACK PAIN Time Seen by Provider: 09/07/17 18:50 Mode of Arrival: Wheelchair Notes: Patient is a 62-year-old male that comes to the emergency department for cheif complaint of lower back pain and difficulty walking. Reportedly patient has been complaining of lower back pain for the past 2 weeks worse than usual although he reports he has chronic lower back pain. She states she is getting numbness sensations in his legs, he denies any change in bowel or bladder function. He denies known fever, he states he has had trouble walking and therefore he has had falls but he denies any other injuries or additional areas of pain other than his lower back. He denies headache. Past medical history includes hypertension, bipolar, possible dementia. [facility] lives at [facility]. He was seen on August 27 reportedly for difficulty walking, had a negative CT of the head and general workup, it was understood that time the patient was at baseline. TRAVEL OUTSIDE OF THE [place] IN LAST 30 DAYS: No - Related Data Allergies/Adverse Reactions: No Known Allergies Allergy (Unverified 02/05/17 00:51) Past Medical History - General Information source: Patient - Social History Smoking Status: Never Smoker Chew tobacco use (# tins/day): Yes Frequency of alcohol use: None Drug Abuse: None Lives with: [facility] Family History: Reviewed & Not Pertinent Patient has suicidal ideation: No Patient has homicidal ideation: No - Past Medical History Cardiac Medical History: Reports: Hx Hypertension Renal/ Medical History: Denies: Hx Peritoneal Dialysis Psychiatric Medical History: Reports: Hx Bipolar Disorder Denies: Hx Depression - Immunizations Hx Diphtheria, Pertussis, Tetanus Vaccination: Yes Review of Systems - Review of Systems Constitutional: No symptoms reported EENT: No symptoms reported Cardiovascular: No symptoms reported Respiratory: No symptoms reported Gastrointestinal: No symptoms reported Genitourinary: No symptoms reported Male Genitourinary: No symptoms reported Musculoskeletal: See HPI Skin: No symptoms reported Hematologic/Lymphatic: No symptoms reported Neurological/Psychological: See HPI Physical Exam - Vital signs Vitals: Temp Pulse Resp BP Pulse Ox 98.2 F 94 16 127/94 H 96 09/07/17 17:34 09/07/17 17:34 09/07/17 17:34 09/07/17 17:34 09/07/17 17:34 - Notes Notes: GENERAL: Alert, interacts well. Sitting up in wheelchair without signs of distress. HEAD: Normocephalic, atraumatic. EYES: Pupils equal, round, and reactive to light. Extraocular movements intact. ENT: Oral mucosa moist, tongue midline. NECK: Full range of motion. Supple. Trachea midline. LUNGS: Clear to auscultation bilaterally, no wheezes, rales, or rhonchi. No respiratory distress. HEART: Regular rate and rhythm. No murmur ABDOMEN: Soft, non-tender. Non-distended. Bowel sounds present in all 4 quadrants. EXTREMITIES: Moves all 4 extremities spontaneously. No edema, normal radial and dorsalis pedis pulses bilaterally. No cyanosis. BACK: no cervical, thoracic, lumbar midline tenderness. No saddle anesthesia. Decreased sensation over the medial aspect of the right leg. Patient ambulates with internal rotation of the right leg, slightly unsteady although he can walk without assistance. He winces with walking. NEUROLOGICAL: Oriented to person and place. Normal speech. [cranial nerves II through XII grossly intact]. PSYCH: Flat affect, calm mood. SKIN: Warm, dry, normal turgor. No rashes or lesions noted. Course - Re-evaluation Re-evalutation: Patient has decreased sensation over the right lower extremity over the medial aspect and he walks favoring the right lower extremity with internal rotation at the hip. No bowel or bladder change. Rectal tone intact, no saddle anesthesia. No pain with palpation of the back, no signs of trauma over the back. CBC and chemistry are reviewed and unremarkable. CAT scan of the head of on August 27 reviewed as normal. No fever, tachycardia, or signs of distress. MRI performed of the lumbar spine: Degenerative disc disease. There is mild foraminal disc bulge on the right at L2 -L3 that appears to contact the exiting nerve root. There is midline disc bulge at L4-5 and there appears to be extruded disc material extending inferiorly from the disc space. Reportedly patient has had these symptoms for 2 weeks now. I spoke with Dr. Brice, asked recommendations. Recommendation is for close follow-up with neurosurgery. Recommends contacting Tertiary care for followup recommendations. Called and spoke with [facility], discussed patient, requested recommendations and follow-up. Transfer center briefly gathered information and then got back to me, recommends patient call [facility] Neurosurgery at 8 AM tomorrow at [phone]. Patient will be provided with a copy of his report and a disc. I did discuss this with patient. Discussed return precautions. Patient states understanding and agreement with plan. - Vital Signs Vital signs: Temp Pulse Resp BP Pulse Ox 98.2 F 94 16 127/94 H 96 09/07/17 17:34 09/07/17 17:34 09/07/17 17:34 09/07/17 17:34 09/07/17 17:34 - Laboratory Result Diagrams: 09/07/17 19:10 09/07/17 19:10 Laboratory results interpreted by me: 09/07/17 09/07/17 19:10 19:10 RDW 14.2 H ALT 100 H Discharge - Discharge Clinical Impression: Difficulty walking Lower back pain Qualifiers: Chronicity: acute Back pain laterality: bilateral Sciatica presence: unspecified whether sciatica present Qualified Code(s): M54.5 - Low back pain Condition: Stable Disposition: HOME, SELF-CARE Additional Instructions: MRI of the back shows disc bulge on the right at L2 and L3, there is also bulge L4 and L5. This is most likely the cause of your symptoms of pain, and difficulty with walking. I called and spoke with Chan Friesland because we do not have neurosurgery here, recommendation is for you to call tomorrow morning after 8 AM, call [facility] Neurosurgery at [phone] for close follow- up and additional evaluation and management. Return here for any concerning worsening symptoms including numbness, loss of bowel or bladder control, fever, or any other concerning symptoms. Referrals: ELSA PICKARD PA-C [Primary Care Provider] - Follow up as needed
[2017-09-07 19:43] LABS: ALANINE AMINOTRANSFERASE 100 U/L (21-72); ALBUMIN 4.5 g/dL (3.5-5.0); ALKALINE PHOSPHATASE 65 U/L (38-126); ANION GAP 15 (5-19); ASPARTATE AMINO TRANSFERASE 57 U/L (17-59); BILIRUBIN,DIRECT 0.3 mg/dL (0.0-0.4); BILIRUBIN,TOTAL 0.5 mg/dL (0.2-1.3); BLOOD UREA NITROGEN 18 mg/dL (7-20); CALCIUM 9.7 mg/dL (8.4-10.2); CARBON DIOXIDE 25 mmol/L (22-30); CHLORIDE 102 mmol/L (98-107); GLUCOSE 105 mg/dL (75-110); POTASSIUM 3.9 mmol/L (3.6-5.0); SODIUM 141.5 mmol/L (137-145); TOTAL PROTEIN 7.8 g/dL (6.3-8.2)
--- NOTE | 2017-09-07 22:21 | RADIOLOGY REPORT (SQ) ---
EXAM DESCRIPTION: MRI LUMBAR SPINE COMBO COMPLETED DATE/TIME: 09/07/2017 9:41 pm REASON FOR STUDY: altered gait low back pain new COMPARISON: None. TECHNIQUE: Sagittal and Axial imaging includes T1, T1 post gadolinium, T2, STIR and gradient echo se quences. Coronal T2/HASTE imaging. CONTRAST TYPE AND DOSE: Not recorded. ML Prohance. RENAL FUNCTION: Creatinine 1 GFR greater than 60 LIMITATIONS: None. FINDINGS: VISUALIZED UPPER ABDOMEN: Limited evaluation. No acute or suspicious findings suggested. SEGMENTATION: No transitional anatomy. The lowest well-developed disc space is labeled L5-S1. ALIGNMENT: Anatomic. VERTEBRAE: Intact. No fractures. BONE MARROW: Normal. No marrow replacement or reactive changes. DISC SIGNAL: Decreased signal intensity in the discs from L2-S1. Loss of height of these discs as we ll. POSTERIOR ELEMENTS: Generally intact. No pars defect evident. HARDWARE: None in the spine. CORD AND CONUS: Normal in size and signal intensity. Conus at the L1-2 level. SOFT TISSUES: No aortic aneurysm seen. No bulky retroperitoneal adenopathy or mass. No paraspinal mas s or fluid. L1-L2: No significant spinal stenosis or exit foraminal stenosis. L2-L3: Mild foraminal bulge on the right. This may contact the exiting nerve root in the neural fora men. L3-L4: No significant spinal stenosis or exit foraminal stenosis. L4-L5: Midline disc bulge. There is disc material that extends inferior to the disc space. No td inal stenosis. L5-S1: Shallow midline disc bulge with no central canal or foraminal stenosis. LOWER THORACIC: Incompletely imaged. No stenosis seen. SACRUM: Visualized upper sacrum intact. ENHANCEMENT: No abnormal enhancement. OTHER: No other significant findings. IMPRESSION: Degenerative disc disease. There is mild foraminal disc bulge on the right at L2-L3 rachelle t appears to contact the exiting nerve root. There is midline disc bulge at L4-5 and there appears t o be extruded disc material extending inferiorly from the disc space. TECHNICAL DOCUMENTATION: JOB ID: [id number]- All Rights Reserved Reading location - IP/workstation name: [email or web address]
[2017-09-08 02:35] VITALS: BP 125/82
== END 2017-09-08 02:53 | disposition home or self-care (01) ==
LOC: ER 17:26
DX: M51.36 Other intervertebral disc degeneration, lumbar region (principal); M51.87 Other intervertebral disc disorders, lumbosacral region; R26.2 Difficulty in walking, not elsewhere classified; R20.0 Anesthesia of skin; Z91.81 History of falling; I10 Essential (primary) hypertension
CPT/HCPCS: 36415; 72158; 80053; 85025; 87040; 99284

== ENCOUNTER 2018-08-07 21:35 | Emergency (ER) | payer MEDICARE, MEDICAID ==
--- NOTE | 2018-08-07 22:08 | ER Document Report ---
ED General - General Chief Complaint: Fall Stated Complaint: FALL Time Seen by Provider: 08/07/18 22:07 Primary Care Provider: ELSA PICKARD PA-C [NO LOCAL MD] - Follow up in 3-5 days Notes: Patient is a 63-year-old male who lives in a alf that presents to the emergency department for chief complaint of fall and right arm abrasion. Patient was walking up an incline, and had slipped and fell, he did not hit his head on the wall, but did not lose consciousness. He denies having any neck pain at this time, he has a superficial abrasion to the right arm, which is not causing much pain or discomfort at this time. He reports that he did not want to come to the emergency department but was advised to. He denies any pain that is new, he states he has chronic low back pain, but that is at its baseline and not new. He denies any numbness, weakness or tingling in any extremity. Denies having any chest pain, shortness of breath or difficulty breathing, denies any lightheadedness, dizziness or headache. Past Medical History: Bipolar disorder Past Surgical History: Denies any recent or pertinent surgical history Social History: Lives in a alf, no current tobacco, alcohol or drug use. Family History: Reviewed and noncontributory for presenting illness Allergies: Reviewed, see documented allergy list. REVIEW OF SYSTEMS: Other than noted above, the 12 point review of systems was reviewed with the patient and were negative, all pertinent findings are included in the HPI. PHYSICAL EXAMINATION: Vital signs reviewed, nursing noted reviewed. GENERAL: Well-appearing, well-nourished and in no acute distress. HEAD: Atraumatic, normocephalic. EYES: Eyes appear normal, extraocular movements intact, sclera anicteric, conjunctiva are normal. ENT: nares patent, oropharynx clear without exudates. Moist mucous membranes. NECK: Normal range of motion, supple without lymphadenopathy, no midline tenderness. LUNGS: Breath sounds clear to auscultation bilaterally and equal. No wheezes rales or rhonchi. HEART: Regular rate and rhythm without murmurs ABDOMEN: Soft, nontender, normoactive bowel sounds. No rebound, guarding, or rigidity. No masses appreciated. EXTREMITIES: Nontender, good range of motion, no pitting or edema. Superficial abrasion noted to the right proximal forearm, over the olecranon, no deep wounds or lacerations, there is no step-off or deformity, or pain with range of motion of the elbow or forearm. The rest the patient's extremity exam is grossly unremarkable. Good strength distally, and sensation intact. NEUROLOGICAL: No focal neurological deficits. Moves all extremities spontaneously Motor and sensory grossly intact on exam. PSYCH: Normal mood, normal affect. SKIN: Warm, Dry, normal turgor TRAVEL OUTSIDE OF THE [place] IN LAST 30 DAYS: No - Related Data Allergies/Adverse Reactions: No Known Allergies Allergy (Unverified 02/05/17 00:51) Past Medical History - Social History Smoking Status: Former Smoker Family History: Reviewed & Not Pertinent - Past Medical History Cardiac Medical History: Reports: Hx Hypertension Renal/ Medical History: Denies: Hx Peritoneal Dialysis Psychiatric Medical History: Reports: Hx Bipolar Disorder Denies: Hx Depression - Immunizations Hx Diphtheria, Pertussis, Tetanus Vaccination: Yes Physical Exam - Vital signs Vitals: Temp Pulse Resp BP Pulse Ox 98 F 71 21 H 120/89 H 97 08/07/18 21:37 08/07/18 21:37 08/07/18 21:37 08/07/18 21:37 08/07/18 21:37 Course - Re-evaluation Re-evalutation: Patient seen and examined vital signs reviewed. Patient was evaluated and treated as appropriate for the patient's presenting symptoms and complaint, with consideration of any critical or life threatening conditions that may be associated with their obtained history and exam as noted above. Patient appears well on exam, he had a minor abrasion, he reports being up-to-date with his tetanus vaccination, advised to follow-up with his primary care and be discharged home. Evaluation was most consistent with abrasion to the right forearm, and fall. Plan of care was discussed with the patient at this point, after careful consideration I feel that that patient can be discharged from the emergency department, the patient was educated treatments and reasons to return to the emergency department based on their presumed diagnosis as noted above, they were advised to followup with a primary care physician in 2-3 days. Patient was agreeable to plan of care. *Note is created using voice recognition software and may contain spelling, syntax or grammatical errors. - Vital Signs Vital signs: Temp Pulse Resp BP Pulse Ox 98 F 71 21 H 120/89 H 97 08/07/18 21:37 08/07/18 21:37 08/07/18 21:37 08/07/18 21:37 08/07/18 21:37 Discharge - Discharge Clinical Impression: Arm abrasion Qualifiers: Encounter type: initial encounter Laterality: right Qualified Code(s): S40.811A - Abrasion of right upper arm, initial encounter Fall Qualifiers: Encounter type: initial encounter Qualified Code(s): W19.XXXA - Unspecified fall, initial encounter Condition: Stable Disposition: HOME, SELF-CARE Instructions: Abrasions ([facility]) Additional Instructions: Please follow-up with your primary care physician, you can apply topical bacitracin ointment or Neosporin to the abrasion, monitor for signs of infection, this should heal well in the next week. Referrals: ELSA PICKARD PA-C [NO LOCAL MD] - Follow up in 3-5 days
[2018-08-08 00:11] VITALS: BP 128/83
== END 2018-08-08 00:10 | disposition home or self-care (01) ==
LOC: ER 21:35
DX: S40.811A Abrasion of right upper arm, initial encounter (principal); W01.0XXA Fall on same level from slipping, tripping and stumbling without subsequent striking against object, initial encounter; I10 Essential (primary) hypertension
CPT/HCPCS: 99283

== ENCOUNTER 2018-08-26 21:31 | Emergency (ER) | payer MEDICARE, MEDICAID ==
--- NOTE | 2018-08-26 23:28 | ER Document Report ---
ED Fall - General Chief Complaint: Fall Stated Complaint: FALL Time Seen by Provider: 08/26/18 23:20 Notes: Patient is a 63-year-old male that comes to the emergency department by EMS from [facility] for chief complaint of a fall. Patient was found down on the ground with an unwitnessed fall. Patient states that he slipped and landed on his back. He denies hitting his head. He states he hurts some in his lower back and slightly in his neck, he denies other locations of pain including chest, abdomen, extremities. He denies vomiting, loss of consciousness, headache, incontinence. He is not on blood thinners. Past medical history of bipolar and dementia. TRAVEL OUTSIDE OF THE [place] IN LAST 30 DAYS: No - Related data Allergies/Adverse Reactions: No Known Allergies Allergy (Unverified 02/05/17 00:51) Past Medical History - General Information source: Patient, Emergency Med Personnel - Social History Smoking Status: Never Smoker Frequency of alcohol use: None Drug Abuse: None Lives with: [facility] Family History: Reviewed & Not Pertinent - Past Medical History Cardiac Medical History: Reports: Hx Hypertension Renal/ Medical History: Denies: Hx Peritoneal Dialysis Psychiatric Medical History: Reports: Hx Bipolar Disorder Denies: Hx Depression - Immunizations Hx Diphtheria, Pertussis, Tetanus Vaccination: Yes Review of Systems - Review of Systems Constitutional: No symptoms reported EENT: No symptoms reported Cardiovascular: No symptoms reported Respiratory: No symptoms reported Gastrointestinal: No symptoms reported Genitourinary: No symptoms reported Male Genitourinary: No symptoms reported Musculoskeletal: See HPI Skin: No symptoms reported Hematologic/Lymphatic: No symptoms reported Neurological/Psychological: No symptoms reported Physical Exam - Vital signs Vitals: Temp Pulse Resp BP Pulse Ox 97.6 F 70 16 114/92 H 96 08/26/18 21:42 08/26/18 21:42 08/26/18 21:42 08/26/18 21:42 08/26/18 21:42 - Notes Notes: GENERAL: Alert, interacts well. No acute distress. HEAD: Normocephalic, atraumatic. EYES: Pupils equal, round, and reactive to light. Extraocular movements intact. ENT: Oral mucosa moist, tongue midline. Oropharynx unremarkable. Airway patent. Nares patent, no nasal septal hematoma, TM's intact. NECK: Full range of motion. Supple. Trachea midline. LUNGS: Clear to auscultation bilaterally, no wheezes, rales, or rhonchi. No respiratory distress. HEART: Regular rate and rhythm. No murmur ABDOMEN: Soft, non-tender. Non-distended. Bowel sounds present in all 4 quadrants. GENITOURINARY: Deferred EXTREMITIES: Moves all 4 extremities spontaneously. No edema, normal radial and dorsalis pedis pulses bilaterally. No cyanosis. BACK: Complains of palpation over the lumbar spine generally, no cervical or thoracic tenderness, no signs of trauma. no saddle anesthesia, normal distal neurovascular exam. Moves all extremities in full range of motion. NEUROLOGICAL: Alert and oriented to person and place but has some events confused. Normal speech. Cranial nerves II through XII grossly intact. PSYCH: Normal affect, normal mood. SKIN: Warm, dry, normal turgor. No rashes or lesions noted. Course - Re-evaluation Re-evalutation: Patient is alert and well-appearing. He is responsive, cooperative. Vital signs unremarkable. No signs of trauma noted on the patient including the head, back, hips, extremities. He complains of pain with palpation over the lumbar area but this is mild nonspecific. No neurological deficits noted. Nontender neck but he did complain of neck pain. Denies head trauma, no signs of trauma to the head therefore no CAT scan was performed. Patient is reportedly at his mental baseline. CT imaging shows no acute findings of the cervical or lumbar spine. Abnormality at L4-L5 with disc bulge noted, patient given recommendations for additional work-up of this. I discussed results with patient, expectations, follow-up, return precautions. Patient does state understanding and agreement. Stable at time of discharge. - Vital Signs Vital signs: Temp Pulse Resp BP Pulse Ox 97.6 F 88 18 134/94 H 93 08/27/18 01:37 08/27/18 01:37 08/27/18 01:37 08/27/18 01:37 08/27/18 01:37 Discharge - Discharge Clinical Impression: Fall Qualifiers: Encounter type: initial encounter Qualified Code(s): W19.XXXA - Unspecified fall, initial encounter Back pain Qualifiers: Back pain location: low back pain Chronicity: acute Back pain laterality: unsp ecified Sciatica presence: without sciatica Qualified Code(s): M54.5 - Low back pain Condition: Stable Disposition: HOME, SELF-CARE Additional Instructions: No concerning findings from the fall were found on evaluation or work-up tonight. The imaging of the lumbar spine does show degenerative changes and I recommend follow close with primary care for additional evaluation and management, see CT report of the lumbar spine. Take Tylenol for pain. Apply heat to the lower back. Rest. You will likely be very sore for the first 2 to 3 days and then improved. Return if you worsen including developing numbness, inability to control your bladder or bowels, severe worsening pain, or any other concerning or worsening symptoms.
--- NOTE | 2018-08-27 00:15 | RADIOLOGY REPORT (SQ) ---
CT CERVICAL SPINE WITHOUT IV CONTRAST EXAM DATE: 08/26/2018 11:26 PM CDT HISTORY: Fall. Neck pain. COMPARISON: None. TECHNIQUE: CT scan of the cervical spine without IV contrast. This exam was performed according to our departmental dose-optimization program, which includes automated exposure control, adjustment of the mA and/or kV according to patient size and/or use of iterative reconstruction technique. FINDINGS: No acute cervical fracture or prevertebral soft tissue swelling is seen. There is straightening of the normal cervical lordosis, which may be due to cervical collar, muscle spasm, or patient positioning. Multilevel degenerative disc disease and facet arthropathy throughout the cervical spine. There are multilevel disc bulges but without advanced canal stenosis identified. IMPRESSION: No acute fracture or subluxation of the cervical spine.
--- NOTE | 2018-08-27 00:17 | RADIOLOGY REPORT (SQ) ---
CT LUMBAR SPINE WITHOUT IV CONTRAST EXAM DATE: 08/26/2018 11:26 PM CDT HISTORY: Fall. Back pain. COMPARISON: None. TECHNIQUE: CT scan of the lumbar spine without IV contrast. This exam was performed according to our departmental dose-optimization program, which includes automated exposure control, adjustment of the mA and/or kV according to patient size and/or use of iterative reconstruction technique. FINDINGS: No acute compression fracture is visualized. There is mild multilevel degenerative disc disease greatest at L5-S1. The facet joints are intact. The sacroiliac joints are preserved. Small disc bulges throughout the lumbar spine greatest at L4-L5 with moderate canal stenosis. IMPRESSION: No acute compression fracture of the lumbar spine. Moderate canal stenosis at L4-L5 due to disc bulge. Consider MRI for complete evaluation.
[2018-08-27] MEDS ORDERED: ACETAMINOPHEN 325 MG TABLET PO ONE (00:21)
[2018-08-27 01:45] VITALS: BP 134/94
== END 2018-08-27 01:45 | disposition home or self-care (01) ==
LOC: ER 21:31
DX: M54.5 Low back pain (principal); M54.2 Cervicalgia; W19.XXXA Unspecified fall, initial encounter; Y92.129 Unspecified place in nursing home as the place of occurrence of the external cause
CPT/HCPCS: 99284; 72125; 72131; A9270

== ENCOUNTER 2018-09-14 07:41 | Observation (INO) | payer MEDICARE, MEDICAID ==
[2018-09-14] MEDS ORDERED: NORMAL SALINE 1000 ML 1,000 ML IV ONE (07:59)
--- NOTE | 2018-09-14 08:05 | ER Document Report ---
ED General - General Chief Complaint: Altered Mental Status Stated Complaint: ALTERED MENTAL STATUS Time Seen by Provider: 09/14/18 07:54 Primary Care Provider: KAELA CHAMBERLAIN PA [Primary Care Provider] - Follow up as needed Mode of Arrival: Medic Information source: Patient, Emergency Med Personnel TRAVEL OUTSIDE OF THE [place] IN LAST 30 DAYS: No - HPI Notes: Patient is brought in by ambulance. Patient has dementia so history from the patient is very difficult. However he is very awake and talkative. History was obtained mainly from EMS. EMS states that patient was found in the fine behind the senior care where he resides. It is unknown how long patient was in the fine. EMS states they were told that the patient was in his room last night but was found this morning in the fine. Patient states that he feels "fine". He denies any pain or problems. EMS personnel stated that they did notice his oxygen saturation was 86% on room air. They noticed some scrapes on his knees but no other injuries. Patient's does not complain of shortness of breath. The apparent hypoxia is currently constant. It is moderate. It appears to get better with oxygen. It is worse without oxygen. There is no no radiation symptoms. It is unknown if he has had previous problems with respiratory issues. He is not on oxygen at the senior care per EMS personnel. No vomiting noticed. - Related Data Allergies/Adverse Reactions: No Known Allergies Allergy (Unverified 02/05/17 00:51) Past Medical History - Social History Smoking Status: Former Smoker Frequency of alcohol use: None Drug Abuse: None Family History: Reviewed & Not Pertinent - Past Medical History Cardiac Medical History: Reports: Hx Hypertension Renal/ Medical History: Denies: Hx Peritoneal Dialysis Psychiatric Medical History: Reports: Hx Bipolar Disorder Denies: Hx Depression - Immunizations Hx Diphtheria, Pertussis, Tetanus Vaccination: Yes Review of Systems - Review of Systems -: Yes ROS unobtainable due to patient's medical condition - Patient has dem entia and is unable to give an appropriate review of symptom Physical Exam - Vital signs Vitals: Pulse Ox 94 09/14/18 07:56 Interpretation: Hypoxic - General General appearance: Alert, Other - Lays with eyes closed but responds readily to voice. In distress: None - HEENT Head: Normocephalic, Atraumatic Eyes: Normal Pupils: PERRL - Respiratory Respiratory status: No respiratory distress Chest status: Nontender Breath sounds: Decreased air movement Chest palpation: Normal - Cardiovascular Rhythm: Regular Heart sounds: Normal auscultation Murmur: No - Abdominal Inspection: Normal Distension: No distension Bowel sounds: Normal Tenderness: Nontender Organomegaly: No organomegaly - Back Back: Normal, Nontender - Extremities General upper extremity: Normal inspection, Nontender General lower extremity: Nontender, Other - Patient has abrasions to the knees anteriorly bilaterally Hip: Normal, Nontender - Neurological Neuro grossly intact: Yes Cognition: Confused Orientation: Disoriented to place, Disoriented to time [place] Coma Scale Eye Opening: To Voice [place] Coma Scale Verbal: Confused Cornelio Coma Scale Motor: Obeys Commands Cornelio Coma Scale Total: 13 Speech: Normal Cranial nerves: No: Facial palsy Motor strength normal: LUE, RUE, LLE, RLE Sensory: Normal - Psychological Associated symptoms: Flat affect - Skin Skin Temperature: Warm Skin Moisture: Dry Skin Color: Normal, Other - Except as noted Course - Re-evaluation Re-evalutation: 09/14/18 11:46 Patient reevaluated. He is resting comfortably and stable. He has a good blood pressure. His heart rate is approximately 70. His oxygen saturations are 94% on room air. His x-ray is read as showing some atelectasis which could possibly be an occult pneumonia. Patient will be started on IV antibiotics and admitted for observation - Vital Signs Vital signs: Temp Pulse Resp BP Pulse Ox 98.7 F 66 18 108/69 96 09/14/18 07:57 09/14/18 08:33 09/14/18 08:33 09/14/18 08:26 09/14/18 08:26 - Laboratory Result Diagrams: 09/14/18 07:30 09/14/18 07:30 Laboratory results interpreted by me: 09/14/18 09/14/18 09/14/18 07:30 07:30 08:47 WBC 14.5 H Seg Neutrophils % 89.3 H Lymphocytes % 5.3 L Absolute Neutrophils 12.9 H Ammonia < 8.7 L Urine Ketones Valproic Acid 26.3 L 09/14/18 09:14 WBC Seg Neutrophils % Lymphocytes % Absolute Neutrophils Ammonia Urine Ketones TRACE H Valproic Acid Laboratory 09/14/18 09/14/18 09/14/18 07:30 07:30 07:30 WBC 14.5 H RBC 4.72 Hgb 13.9 Hct 41.3 MCV 88 MCH 29.5 MCHC 33.6 RDW 13.5 Plt Count 263 Seg Neutrophils % 89.3 H Lymphocytes % 5.3 L Monocytes % 4.8 Eosinophils % 0.3 Basophils % 0.3 Absolute Neutrophils 12.9 H Absolute Lymphocytes 0.8 Absolute Monocytes 0.7 Absolute Eosinophils 0.0 Absolute Basophils 0.0 Sodium 139.0 Potassium 3.7 Chloride 106 Carbon Dioxide 24 Anion Gap 9 BUN 15 Creatinine 0.95 Est GFR ( Amer) > 60 Est GFR (Non-Af Amer) > 60 Glucose 108 POC Glucose Calcium 8.9 Magnesium 2.1 Total Bilirubin 0.4 Direct Bilirubin 0.3 Neonat Total Bilirubin Not Reportable Neonat Direct Bilirubin Not Reportable Neonat Indirect Bili Not Reportable AST 31 ALT 30 Alkaline Phosphatase 72 Ammonia Creatine Kinase 79 Troponin I Total Protein 6.9 Albumin 4.0 Urine Color Urine Appearance Urine pH Ur Specific [place] Urine Protein Urine Glucose (UA) Urine Ketones Urine Blood Urine Nitrite Urine Bilirubin Urine Urobilinogen Ur Leukocyte Esterase Urine RBC Hyaline Casts Urine Mucus Urine Ascorbic Acid Urine Opiates Screen Urine Methadone Screen Ur Barbiturates Screen Valproic Acid 26.3 L Ur Phencyclidine Scrn Ur Amphetamines Screen U Benzodiazepines Scrn Urine Cocaine Screen U Marijuana (THC) Screen Serum Alcohol < 10 09/14/18 09/14/18 09/14/18 07:30 08:23 08:47 WBC RBC Hgb Hct MCV MCH MCHC RDW Plt Count Seg Neutrophils % Lymphocytes % Monocytes % Eosinophils % Basophils % Absolute Neutrophils Absolute Lymphocytes Absolute Monocytes Absolute Eosinophils Absolute Basophils Sodium Potassium Chloride Carbon Dioxide Anion Gap BUN Creatinine Est GFR ( Amer) Est GFR (Non-Af Amer) Glucose POC Glucose 103 Calcium Magnesium Total Bilirubin Direct Bilirubin Neonat Total Bilirubin Neonat Direct Bilirubin Neonat Indirect Bili AST ALT Alkaline Phosphatase Ammonia < 8.7 L Creatine Kinase Troponin I 0.080 Total Protein Albumin Urine Color Urine Appearance Urine pH Ur Specific [place] Urine Protein Urine Glucose (UA) Urine Ketones Urine Blood Urine Nitrite Urine Bilirubin Urine Urobilinogen Ur Leukocyte Esterase Urine RBC Hyaline Casts Urine Mucus Urine Ascorbic Acid Urine Opiates Screen Urine Methadone Screen Ur Barbiturates Screen Valproic Acid Ur Phencyclidine Scrn Ur Amphetamines Screen U Benzodiazepines Scrn Urine Cocaine Screen U Marijuana (THC) Screen Serum Alcohol 09/14/18 09/14/18 09:14 09:14 WBC RBC Hgb Hct MCV MCH MCHC RDW Plt Count Seg Neutrophils % Lymphocytes % Monocytes % Eosinophils % Basophils % Absolute Neutrophils Absolute Lymphocytes Absolute Monocytes Absolute Eosinophils Absolute Basophils Sodium Potassium Chloride Carbon Dioxide Anion Gap BUN Creatinine Est GFR ( Amer) Est GFR (Non-Af Amer) Glucose POC Glucose Calcium Magnesium Total Bilirubin Direct Bilirubin Neonat Total Bilirubin Neonat Direct Bilirubin Neonat Indirect Bili AST ALT Alkaline Phosphatase Ammonia Creatine Kinase Troponin I Total Protein Albumin Urine Color YELLOW Urine Appearance CLEAR Urine pH 6.0 Ur Specific [place] 1.014 Urine Protein NEGATIVE Urine Glucose (UA) NEGATIVE Urine Ketones TRACE H Urine Blood NEGATIVE Urine Nitrite NEGATIVE Urine Bilirubin NEGATIVE Urine Urobilinogen NEGATIVE Ur Leukocyte Esterase NEGATIVE Urine RBC 1-5 Hyaline Casts 5-10 Urine Mucus 1+ Urine Ascorbic Acid NEGATIVE Urine Opiates Screen NEGATIVE Urine Methadone Screen NEGATIVE Ur Barbiturates Screen NEGATIVE Valproic Acid Ur Phencyclidine Scrn NEGATIVE Ur Amphetamines Screen NEGATIVE U Benzodiazepines Scrn NEGATIVE Urine Cocaine Screen NEGATIVE U Marijuana (THC) Screen NEGATIVE Serum Alcohol - Diagnostic Test Radiology results interpreted by me: 09/14/18 11:47 Chest X-Ray 09/14/18 07:56 IMPRESSION: Minimal right basilar atelectasis. Head CT 09/14/18 07:57 IMPRESSION: No acute intracranial pathology. EVIDENCE OF ACUTE STROKE: NO. - EKG Interpretation by [facility] EKG shows normal: Sinus rhythm Rate: Normal - 68 Rhythm: NSR [place]/QRS: No: Right axis deviation, Left axis deviation Discharge - Discharge Clinical Impression: Hypoxia Pneumonia Qualifiers: Pneumonia type: due to unspecified organism Laterality: right Lung location: lower lobe of lung Qualified Code(s): J18.1 - Lobar pneumonia, unspecified organism Condition: Stable Disposition: ADMITTED INPATIENT Admitting Provider: Hayde (Hospitalist) - [facility] Admitted: Medical Floor Referrals: KAELA CHAMBERLAIN PA [Primary Care Provider] - Follow up as needed
[2018-09-14 08:14] LABS: ABSOLUTE LYMPHOCYTES (AUTO) 0.8 10^3/uL (0.5-4.7); ABSOLUTE MONOCYTES (AUTO) 0.7 10^3/uL (0.1-1.4); ABSOLUTE NEUT (AUTO) 12.9 10^3/uL (1.7-8.2); BASOPHILS % (AUTO) 0.3 % (0-2); EOSINOPHILS % (AUTO) 0.3 % (0-6); HEMATOCRIT 41.3 % (37.9-51.0); HEMOGLOBIN 13.9 g/dL (13.5-17.0); LYMPHOCYTES % (AUTO) 5.3 % (13-45); MEAN CORPUSCULAR HEMOGLOBIN 29.5 pg (27.0-33.4); MEAN CORPUSCULAR HGB CONC 33.6 g/dL (32.0-36.0); MEAN CORPUSCULAR VOLUME 88 fl (80-97); MONOCYTES % (AUTO) 4.8 % (3-13); PLATELET COUNT 263 10^3/uL (150-450); RED BLOOD COUNT 4.72 10^6/uL (4.35-5.55); RED CELL DISTRIBUTION WIDTH 13.5 % (11.5-14.0); SEGMENTED NEUTROPHILS % (AUTO) 89.3 % (42-78); TOTAL CELLS COUNTED % (AUTO) 100 %; WHITE BLOOD COUNT 14.5 10^3/uL (4.0-10.5)
[2018-09-14 08:32] LABS: ALKALINE PHOSPHATASE 72 U/L (38-126); ANION GAP 9 (5-19); ASPARTATE AMINO TRANSFERASE 31 U/L (17-59); BILIRUBIN,DIRECT 0.3 mg/dL (0.0-0.4); BILIRUBIN,TOTAL 0.4 mg/dL (0.2-1.3); BLOOD UREA NITROGEN 15 mg/dL (7-20); CALCIUM 8.9 mg/dL (8.4-10.2); CARBON DIOXIDE 24 mmol/L (22-30); CHLORIDE 106 mmol/L (98-107); GLUCOSE 108 mg/dL (75-110); POTASSIUM 3.7 mmol/L (3.6-5.0); TOTAL PROTEIN 6.9 g/dL (6.3-8.2)
[2018-09-14 08:41] LABS: ALCOHOL < 10 mg/dL (NONE DETECTED)
[2018-09-14] MEDS ORDERED: AZITHROMYCIN 250 MG TABLET PO ONE (08:47)
[2018-09-14] MEDS ORDERED: CEFTRIAXONE 2 GM/D5W RTU 2 GM/50 ML RTUPB IV ONE (08:50)
--- NOTE | 2018-09-14 08:51 | RADIOLOGY REPORT (SQ) ---
EXAM DESCRIPTION: CT HEAD WITHOUT COMPLETED DATE/TIME: 09/14/2018 8:40 am REASON FOR STUDY: ams COMPARISON: CT brain, 08/27/2017 TECHNIQUE: Axial images acquired through the brain without intravenous contrast. Images reviewed wi th bone, brain and subdural windows. Additional sagittal and coronal reconstructions were generated. Images stored on PACS. All CT scanners at this facility use dose modulation, iterative reconstruction, and/or weight based d osing when appropriate to reduce radiation dose to as low as reasonably achievable (ALARA). [facility]: Dose Right [facility]: CareDose [facility]: Dose Right [facility]: Teradose 4D [facility]: [employer] RADIATION DOSE: CT Rad equipment meets quality standard of care and radiation dose reduction techniq ues were employed. CTDIvol: 53.2 mGy. DLP: 1070 mGy-cm. mGy. LIMITATIONS: None. FINDINGS: VENTRICLES: Normal size and contour. CEREBRUM: No masses. No hemorrhage. No midline shift. No evidence for acute infarction. Normal gra y/white matter differentiation. No areas of low density in the white matter. CEREBELLUM: No masses. No hemorrhage. No alteration of density. No evidence for acute infarction. EXTRAAXIAL SPACES: No fluid collections. No masses. ORBITS AND GLOBE: No intra- or extraconal masses. Normal contour of globe without masses. CALVARIUM: No fracture. PARANASAL SINUSES: No fluid or mucosal thickening. SOFT TISSUES: No mass or hematoma. OTHER: No other significant finding. IMPRESSION: No acute intracranial pathology. EVIDENCE OF ACUTE STROKE: NO. COMMENT: Quality ID # [id number]: Final reports with documentation of one or more dose reduction techniques (e.g., Automated exposure control, adjustment of the mA and/or kV according to patient size, use of iterative reconstruction technique) TECHNICAL DOCUMENTATION: JOB ID: [id number] [employer]- All Rights Reserved Reading location - IP/workstation name: [email or web address]
--- NOTE | 2018-09-14 09:02 | RADIOLOGY REPORT (SQ) ---
EXAM DESCRIPTION: CHEST SINGLE VIEW COMPLETED DATE/TIME: 09/14/2018 8:49 am REASON FOR STUDY: sob COMPARISON: Chest films 08/27/2017, 02/09/2017, 02/04/2017 EXAM PARAMETERS: NUMBER OF VIEWS: One view. TECHNIQUE: Single frontal radiographic view of the chest acquired. RADIATION DOSE: NA LIMITATIONS: None. FINDINGS: LUNGS AND PLEURA: Minimal airspace disease at the right lung base, just above the hemidiap hragm. Remainder of the lungs are clear. No pleural effusions. No pneumothorax. MEDIASTINUM AND HILAR STRUCTURES: No masses. Contour normal. HEART AND VASCULAR STRUCTURES: Heart normal in size. Normal vasculature. BONES: No acute findings. HARDWARE: None in the chest. OTHER: No other significant finding. IMPRESSION: Minimal right basilar atelectasis. TECHNICAL DOCUMENTATION: JOB ID: [id number] [employer]- All Rights Reserved Reading location - IP/workstation name: [email or web address]
[2018-09-14 09:35] LABS: APPEARANCE,URINE CLEAR; BILIRUBIN,URINE NEGATIVE (NEGATIVE); COLOR,URINE YELLOW; GLUCOSE, URINE NEGATIVE (NEGATIVE); KETONES,URINE TRACE mg/dL (NEGATIVE); LEUKOCYTE ESTERASE,URINE NEGATIVE (NEGATIVE); NITRITE,URINE NEGATIVE (NEGATIVE); PROTEIN,URINE NEGATIVE (NEGATIVE); URINE SPECIFIC GRAVITY 1.014; UROBILINOGEN,URINE NEGATIVE mg/dL (<2.0)
[2018-09-14 09:36] LABS: ADD MANUAL MICROSCOPIC YES
[2018-09-14 09:52] LABS: URINE AMPHETAMINES SCREEN NEGATIVE; URINE BARBITURATES SCREEN NEGATIVE; URINE BENZODIAZEPINES SCREEN NEGATIVE; URINE COCAINE SCREEN NEGATIVE; URINE MARIJUANA (THC) SCREEN NEGATIVE; URINE METHADONE SCREEN NEGATIVE; URINE PHENCYCLIDINE SCREEN NEGATIVE
[2018-09-14] MEDS ORDERED: OXYCODONE-ACETAMINOPHEN 5-325 MG TABLET PO PRN (12:42)
[2018-09-14] MEDS ORDERED: ONDANSETRON HCL INJ/PF 4 MG/2 ML SDV IV PRN (12:42)
[2018-09-14] MEDS ORDERED: ZOLPIDEM TARTRATE 5 MG TABLET PO PRN (12:42)
--- NOTE | 2018-09-14 12:48 | Progress Note Acknowledgement ---
Progress Note Acknowledgement Progess Note Acknowledgement: I, the undersigned member of the medical staff with appropriate privileges and with supervisory authority over [Roel Fraser], a dependent practice allied health professional, acknowledge that I have reviewed the progress notes entered on this patient, and in my professional judgment believe that the assessment made and/or any care evidenced was appropriate
--- NOTE | 2018-09-14 12:50 | EKG REPORT ---
SEVERITY:- NORMAL ECG - SINUS RHYTHM : Confirmed by: Nicholas Collier MD 14-Sep-2018 12:49:47
--- NOTE | 2018-09-14 12:52 | PDOC H&P ---
History of Present Illness Admission Date/PCP: 09/14/18 12:12 ALBERT HAZEL Patient complains of: Nothing at this time History of Present Illness: SHAWN BURGESS is a 63 year old male from a local medical residency home. Patient was found outside the kitchen while running down for unknown amount of time. Patient subsequently transferred to the ER at [facility] for further with treatment. Patient found to have bibasilar infiltrate suggestive of pneumonia, a mild leukocytosis of 14.5, no fever. At this time patient be admitted for community acquired pneumonia. Had no treatment prior to arrival no true aggravating factors. Past Medical History Cardiac Medical History: Reports: Hypertension Psychiatric Medical History: Reports: Bipolar Disorder Denies: Depression Social History Information Source: Patient Lives with: Other Smoking Status: Former Smoker Frequency of Alcohol Use: None Hx Recreational Drug Use: Yes Drugs: Marijuana Hx Prescription Drug Abuse: No - Advance Directive Resuscitation Status: Full Code Family History Family History: Reviewed & Not Pertinent Parental Family History Reviewed: Yes Children Family History Reviewed: Yes Sibling(s) Family History Reviewed.: Yes Medication/Allergy Home Medications: Acetaminophen [Tylenol] 650 mg PO Q4HP PRN 02/05/17 Benztropine Mesylate 1 mg PO QHS 02/05/17 Buspirone HCl 10 mg PO BID 02/05/17 Duloxetine HCl 30 mg PO DAILY 02/05/17 Lisinopril/Hydrochlorothiazide [Lisinopril-Hctz 20-25 mg Tab] 1 tab PO DAILY 02/05/17 Naproxen 500 mg PO BID 02/05/17 Risperidone [Risperdal] 3 mg PO BID 02/05/17 Tizanidine HCl 4 mg PO Q6HP PRN 02/05/17 Trazodone HCl [Desyrel 50 mg Tablet] 25 mg PO HSP PRN 02/05/17 Benzocaine/Menthol [Chloraseptic Sore Throat Lozenge] 1 each BUCCAL Q1HP PRN #20 lozenge 02/10/17 Guaifenesin [Mucinex Sr 600 mg Tablet.sa] 600 mg PO Q12 #30 tablet.sa 02/10/17 Levofloxacin [Levaquin 750 mg Tablet] 750 mg PO DAILY #2 tablet 02/10/17 Nicotine [Nicoderm 14 mg/24 Hr Transdermal Patch] 1 each TD DAILYP PRN #14 patch.td24 02/10/17 Prednisone [Deltasone 20 mg Tablet] 20 mg PO ASDIR PRN #9 tablet 02/10/17 Allergies/Adverse Reactions: No Known Allergies Allergy (Unverified 02/05/17 00:51) Review of Systems Constitutional: ABSENT: chills, fever(s), headache(s), weight gain, weight loss Eyes: ABSENT: visual disturbances Ears: ABSENT: hearing changes Cardiovascular: ABSENT: chest pain, dyspnea on exertion, edema, orthropnea, palpitations Respiratory: ABSENT: cough, hemoptysis Gastrointestinal: ABSENT: abdominal pain, constipation, diarrhea, hematemesis, hematochezia, nausea, vomiting Genitourinary: ABSENT: dysuria, hematuria Musculoskeletal: ABSENT: joint swelling Integumentary: ABSENT: rash, wounds Neurological: ABSENT: abnormal gait, abnormal speech, confusion, dizziness, focal weakness, syncope Psychiatric: ABSENT: anxiety, depression, homidical ideation, suicidal ideation Endocrine: ABSENT: cold intolerance, heat intolerance, polydipsia, polyuria Hematologic/Lymphatic: ABSENT: easy bleeding, easy bruising Physical Exam Vital Signs: Temp Pulse Resp BP Pulse Ox 98.7 F 66 18 108/69 96 09/14/18 07:57 09/14/18 08:33 09/14/18 08:33 09/14/18 08:26 09/14/18 08:26 Intake & Output 09/13/18 09/14/18 09/15/18 06:59 06:59 06:59 Intake Total 1050 Balance 1050 Weight 72.575 kg General appearance: PRESENT: no acute distress, well-developed, well-nourished Head exam: PRESENT: atraumatic, normocephalic Eye exam: PRESENT: conjunctiva pink, EOMI, PERRLA. ABSENT: scleral icterus Ear exam: PRESENT: normal external ear exam Mouth exam: PRESENT: moist, tongue midline Neck exam: ABSENT: carotid bruit, JVD, lymphadenopathy, thyromegaly Respiratory exam: PRESENT: clear to auscultation sridhar. ABSENT: rales, rhonchi, wheezes Cardiovascular exam: PRESENT: RRR. ABSENT: diastolic murmur, rubs, systolic murmur Pulses: PRESENT: normal dorsalis pedis pul Vascular exam: PRESENT: normal capillary refill GI/Abdominal exam: PRESENT: normal bowel sounds, soft. ABSENT: distended, guarding, mass, organolmegaly, rebound, tenderness Rectal exam: PRESENT: deferred Extremities exam: PRESENT: full ROM. ABSENT: calf tenderness, clubbing, pedal edema Neurological exam: PRESENT: alert, awake, oriented to person, oriented to place, oriented to time, oriented to situation, CN II-XII grossly intact. ABSENT: motor sensory deficit Psychiatric exam: PRESENT: appropriate affect, normal mood. ABSENT: homicidal ideation, suicidal ideation Skin exam: PRESENT: dry, intact, warm. ABSENT: cyanosis, rash Results Laboratory Results: 09/14/18 07:30 09/14/18 07:30 09/14/18 09/14/18 09/14/18 07:30 07:30 08:47 WBC 14.5 H RBC 4.72 Hgb 13.9 Hct 41.3 MCV 88 MCH 29.5 MCHC 33.6 RDW 13.5 Plt Count 263 Seg Neutrophils % 89.3 H Lymphocytes % 5.3 L Monocytes % 4.8 Eosinophils % 0.3 Basophils % 0.3 Absolute Neutrophils 12.9 H Absolute Lymphocytes 0.8 Absolute Monocytes 0.7 Absolute Eosinophils 0.0 Absolute Basophils 0.0 Sodium 139.0 Potassium 3.7 Chloride 106 Carbon Dioxide 24 Anion Gap 9 BUN 15 Creatinine 0.95 Est GFR ( Amer) > 60 Est GFR (Non-Af Amer) > 60 Glucose 108 Calcium 8.9 Magnesium 2.1 Total Bilirubin 0.4 AST 31 Alkaline Phosphatase 72 Ammonia < 8.7 L Total Protein 6.9 Albumin 4.0 Urine Color Urine Appearance Urine pH Ur Specific [place] Urine Protein Urine Glucose (UA) Urine Ketones Urine Blood Urine Nitrite Ur Leukocyte Esterase 09/14/18 09:14 WBC RBC Hgb Hct MCV MCH MCHC RDW Plt Count Seg Neutrophils % Lymphocytes % Monocytes % Eosinophils % Basophils % Absolute Neutrophils Absolute Lymphocytes Absolute Monocytes Absolute Eosinophils Absolute Basophils Sodium Potassium Chloride Carbon Dioxide Anion Gap BUN Creatinine Est GFR ( Amer) Est GFR (Non-Af Amer) Glucose Calcium Magnesium Total Bilirubin AST Alkaline Phosphatase Ammonia Total Protein Albumin Urine Color YELLOW Urine Appearance CLEAR Urine pH 6.0 Ur Specific [place] 1.014 Urine Protein NEGATIVE Urine Glucose (UA) NEGATIVE Urine Ketones TRACE H Urine Blood NEGATIVE Urine Nitrite NEGATIVE Ur Leukocyte Esterase NEGATIVE 09/14/18 09/14/18 07:30 07:30 Creatine Kinase 79 Troponin I 0.080 Impressions: Chest X-Ray 09/14/18 07:56 IMPRESSION: Minimal right basilar atelectasis. Head CT 09/14/18 07:57 IMPRESSION: No acute intracranial pathology. EVIDENCE OF ACUTE STROKE: NO. Assessment and Plan - Diagnosis (1) Pneumonia Qualifiers: Pneumonia type: due to unspecified organism Laterality: right Lung location: lower lobe of lung Qualified Code(s): J18.1 - Lobar pneumonia, unspecified organism Is this a current diagnosis for this admission?: Yes Plan: September 14, 2018-admit medical surgical floor, Rocephin 1 g IV daily and azithromycin 500 milligrams p.o. daily. (2) Hypoxia Is this a current diagnosis for this admission?: Yes Plan: September 14, 2018-on admission patient had hypoxia with O2 sat of 86%. Patient on 2 L nasal cannula with sats in the mid 90s. This could be considered an acute respiratory failure with hypoxia. - Time Time Spent with patient: 35 or more minutes
[2018-09-14] MEDS: ENOXAPARIN SODIUM INJ 40 MG/0.4 ML DISP.SYRIN SUBCUT SCH (15:17)
[2018-09-15 04:52] LABS: ABSOLUTE BASOPHILS # (AUTO) 0.1 10^3/uL (0.0-0.2); ABSOLUTE EOSINOPHILS # (AUTO) 0.1 10^3/uL (0.0-0.6); ABSOLUTE LYMPHOCYTES (AUTO) 1.8 10^3/uL (0.5-4.7); ABSOLUTE MONOCYTES (AUTO) 0.7 10^3/uL (0.1-1.4); ABSOLUTE NEUT (AUTO) 5.7 10^3/uL (1.7-8.2); BASOPHILS % (AUTO) 0.6 % (0-2); EOSINOPHILS % (AUTO) 1.4 % (0-6); HEMATOCRIT 40.1 % (37.9-51.0); HEMOGLOBIN 13.5 g/dL (13.5-17.0); LYMPHOCYTES % (AUTO) 21.7 % (13-45); MEAN CORPUSCULAR HEMOGLOBIN 29.6 pg (27.0-33.4); MEAN CORPUSCULAR HGB CONC 33.8 g/dL (32.0-36.0); MEAN CORPUSCULAR VOLUME 88 fl (80-97); MONOCYTES % (AUTO) 8.5 % (3-13); PLATELET COUNT 217 10^3/uL (150-450); RED BLOOD COUNT 4.57 10^6/uL (4.35-5.55); RED CELL DISTRIBUTION WIDTH 13.8 % (11.5-14.0); SEGMENTED NEUTROPHILS % (AUTO) 67.8 % (42-78); TOTAL CELLS COUNTED % (AUTO) 100 %; WHITE BLOOD COUNT 8.4 10^3/uL (4.0-10.5)
[2018-09-15 05:10] LABS: ANION GAP 7 (5-19); BLOOD UREA NITROGEN 13 mg/dL (7-20); CALCIUM 8.7 mg/dL (8.4-10.2); CARBON DIOXIDE 28 mmol/L (22-30); CHLORIDE 105 mmol/L (98-107); GLUCOSE 99 mg/dL (75-110); POTASSIUM 3.6 mmol/L (3.6-5.0)
[2018-09-15] MEDS ORDERED: CEFTRIAXONE SODIUM 1,000 MG in DEXTROSE 5%-WATER 50 ML IV SCH (08:00)
[2018-09-15] MEDS: ENOXAPARIN SODIUM INJ 40 MG/0.4 ML DISP.SYRIN SUBCUT SCH (09:33)
[2018-09-15] MEDS ORDERED: CEFTRIAXONE 1 GM/D5W RTU 1 GM/50 ML RTUPB IV SCH (10:00)
[2018-09-15] MEDS ORDERED: AZITHROMYCIN 250 MG TABLET PO SCH (10:00)
--- NOTE | 2018-09-15 10:33 | PDOC DISCHARGE SUMMARY ---
General - Admit/Disc Date/PCP Admission Date/Primary Care Provider: 09/14/18 12:12 ALBERT HAZEL Discharge Date: 09/15/18 - Discharge Diagnosis (1) Pneumonia Is this a current diagnosis for this admission?: Yes (2) Hypoxia Is this a current diagnosis for this admission?: Yes - Additional Information Resuscitation Status: Full Code Discharge Diet: As Tolerated Discharge Activity: Activity As Tolerated Prescriptions: Azithromycin [Zithromax 250 mg Tablet] 500 mg PO DAILY #3 tablet Home Medications: Benztropine Mesylate 1 mg PO QHS 02/05/17 Buspirone HCl 15 mg PO DAILY 02/05/17 Duloxetine HCl 60 mg PO DAILY 02/05/17 Risperidone [Risperdal] 3 mg PO BID 02/05/17 Trazodone HCl [Desyrel 50 mg Tablet] 75 mg PO HSP PRN 02/05/17 Guaifenesin [Mucinex Sr 600 mg Tablet.sa] 600 mg PO Q12 #30 tablet.sa 02/10/17 Bupropion HCl [Wellbutrin 75 mg Tablet] 150 mg PO QAM 09/14/18 Divalproex Sodium [Depakote] 125 mg PO TID 09/14/18 Gabapentin [Neurontin 300 mg Capsule] 300 mg PO Q12 09/14/18 Hydrocodone/Acetaminophen [Gotham 5-325 mg Tablet] 1 tab PO TIDP PRN 09/14/18 Lisinopril 20 mg PO DAILY 09/14/18 Meloxicam [Mobic] 7.5 mg PO DAILY 09/14/18 Tizanidine HCl [Zanaflex] 2 mg PO Q6HP PRN 09/14/18 Azithromycin [Zithromax 250 mg Tablet] 500 mg PO DAILY #3 tablet 09/15/18 History of Present Illness History of Present Illness: SHAWN BURGESS is a 63 year old male from a local medical residency home. Patient was found outside the kitchen while running down for unknown amount of time. Patient subsequently transferred to the ER at [facility] for further with treatment. Patient found to have bibasilar infiltrate suggestive of pneumonia, a mild leukocytosis of 14.5, no fever. At this time patient be admitted for community acquired pneumonia. Had no treatment prior to arrival no true aggravating factors. Hospital Course Hospital Course: Patient was admitted for community acquired pneumonia. Patient placed on appr opriate antibiotic and shows a decrease of his white count to 8.4 this morning. At this time patient has improved patient return back to [facility]. I will prescribe azithromycin 500 g p.o. daily x3 days. Patient will return and continue all home medications as before. Patient return to the ER for any further complaints or concerns. Physical Exam Vital Signs: Temp Pulse Resp BP Pulse Ox 97.6 F 86 17 126/83 H 96 09/15/18 08:00 09/15/18 08:00 09/15/18 08:00 09/15/18 08:00 09/15/18 08:00 Intake & Output 09/14/18 09/15/18 09/16/18 06:59 06:59 06:59 Intake Total 1290 50 Balance 1290 50 Weight 72.6 kg General appearance: PRESENT: no acute distress, well-developed, well-nourished Head exam: PRESENT: atraumatic, normocephalic Eye exam: PRESENT: conjunctiva pink, EOMI, PERRLA. ABSENT: scleral icterus Ear exam: PRESENT: normal external ear exam Mouth exam: PRESENT: moist, tongue midline Neck exam: ABSENT: carotid bruit, JVD, lymphadenopathy, thyromegaly Respiratory exam: PRESENT: clear to auscultation sridhar. ABSENT: rales, rhonchi, wheezes Cardiovascular exam: PRESENT: RRR. ABSENT: diastolic murmur, rubs, systolic murmur Pulses: PRESENT: normal dorsalis pedis pul Vascular exam: PRESENT: normal capillary refill GI/Abdominal exam: PRESENT: normal bowel sounds, soft. ABSENT: distended, guarding, mass, organolmegaly, rebound, tenderness Rectal exam: PRESENT: deferred Extremities exam: PRESENT: full ROM. ABSENT: calf tenderness, clubbing, pedal edema Neurological exam: PRESENT: alert, awake, oriented to person, oriented to place, oriented to time, oriented to situation, CN II-XII grossly intact. ABSENT: motor sensory deficit Psychiatric exam: PRESENT: flat affect, normal mood. ABSENT: homicidal ideation, suicidal ideation Skin exam: PRESENT: dry, intact, warm. ABSENT: cyanosis, rash Results Laboratory Results: 09/15/18 04:22 09/15/18 04:22 09/15/18 09/15/18 04:22 04:22 WBC 8.4 RBC 4.57 Hgb 13.5 Hct 40.1 MCV 88 MCH 29.6 MCHC 33.8 RDW 13.8 Plt Count 217 Seg Neutrophils % 67.8 Lymphocytes % 21.7 Monocytes % 8.5 Eosinophils % 1.4 Basophils % 0.6 Absolute Neutrophils 5.7 Absolute Lymphocytes 1.8 Absolute Monocytes 0.7 Absolute Eosinophils 0.1 Absolute Basophils 0.1 Sodium 139.9 Potassium 3.6 Chloride 105 Carbon Dioxide 28 Anion Gap 7 BUN 13 Creatinine 0.84 Est GFR ( Amer) > 60 Est GFR (Non-Af Amer) > 60 Glucose 99 Calcium 8.7 09/14/18 09/14/18 07:30 07:30 Creatine Kinase 79 Troponin I 0.080 Impressions: Chest X-Ray 09/14/18 07:56 IMPRESSION: Minimal right basilar atelectasis. Head CT 09/14/18 07:57 IMPRESSION: No acute intracranial pathology. EVIDENCE OF ACUTE STROKE: NO. Qualifiers - * PATIENT BEING DISCHARGED WITH ANY OF THE FOLLOWING DIAGNOSIS: No Acute Heart Failure - Is this a Heart Failure Patient?: No Plan Time Spent: Greater than 30 Minutes
[2018-09-15 12:43] VITALS: BP 148/87
== END 2018-09-15 14:35 ==
LOC: ER 07:41 → EH 12:12 → INTOOBSV 12:12 → 4S 14:25
PROVIDERS: ADMIT Internal Medicine; ATTEND Internal Medicine
DX: J18.1 Lobar pneumonia, unspecified organism (principal); R09.02 Hypoxemia; I10 Essential (primary) hypertension; F03.91 Unspecified dementia, unspecified severity, with behavioral disturbance; F05 Delirium due to known physiological condition; Z91.83 Wandering in diseases classified elsewhere; F31.9 Bipolar disorder, unspecified; S80.212A Abrasion, left knee, initial encounter; S80.211A Abrasion, right knee, initial encounter; X58.XXXA Exposure to other specified factors, initial encounter; Y92.828 Other wilderness area as the place of occurrence of the external cause; R40.2362 Coma scale, best motor response, obeys commands, at arrival to emergency department; R40.2132 Coma scale, eyes open, to sound, at arrival to emergency department; R40.2242 Coma scale, best verbal response, confused conversation, at arrival to emergency department; R78.81 Bacteremia; Z79.899 Other long term (current) drug therapy; Z87.891 Personal history of nicotine dependence
CPT/HCPCS: 93005; 99285; 96365; 36415 ×2; 87040; 82962; 80307 ×2; 82140; 82550; 83735; 85025 ×2; 87077; 80048; 80053; 81001; 84484; 80164; 71045; 70450; 93010; G0378 ×3; A9270 ×2; J1650 ×2; J0696 ×2; J7060; J7030

== ENCOUNTER 2018-09-23 21:00 | Emergency (ER) | payer MEDICARE, MEDICAID ==
--- NOTE | 2018-09-23 22:08 | ER Document Report ---
ED General - General Chief Complaint: Fall Stated Complaint: FALL Time Seen by Provider: 09/23/18 21:21 Primary Care Provider: KAELA CHAMBERLAIN PA [Primary Care Provider] - Follow up in 3-5 days Mode of Arrival: Medic Information source: Patient, Emergency Med Personnel, Outside Facility Records Notes: This 63-year-old male presents the emergency department post fall via EMS with rigid cervical collar in place. Patient reports he fell and hit a doorknob. T his was unwitnessed. patient has laceration approximately 2 cm on his left eyebrow. Patient presents from the [facility] with a history of bipolar insomnia chronic shoulder pain and hypertension. Pt is not taking anticoagulants. Patient is answering all questions appropriately but does not elaborate. RN caring for patient reports that she had the same patient last week after a fall. She reports this is his baseline. No complaints of vomiting fever. Patient reports he fell into the doorknob because he became dizzy. TRAVEL OUTSIDE OF THE [place] IN LAST 30 DAYS: No - HPI Onset: Just prior to arrival Quality of pain: Other - sore Pain Level: 2 Associated symptoms: None Exacerbated by: Denies Relieved by: Denies Similar symptoms previously: No Recently seen / treated by doctor: No - Related Data Allergies/Adverse Reactions: No Known Allergies Allergy (Unverified 02/05/17 00:51) Past Medical History - General Information source: Patient, Emergency Med Personnel, Outside Facility Records - Social History Smoking Status: Unknown if Ever Smoked Cigarette use (# per day): No Frequency of alcohol use: None Drug Abuse: None Lives with: Other - [facility] Family History: Reviewed & Not Pertinent Patient has suicidal ideation: No Patient has homicidal ideation: No - Past Medical History Cardiac Medical History: Reports: Hx Hypertension Renal/ Medical History: Denies: Hx Peritoneal Dialysis Psychiatric Medical History: Reports: Hx Bipolar Disorder, Other - insomnia Denies: Hx Depression Surgical Hx: Negative - Immunizations Hx Diphtheria, Pertussis, Tetanus Vaccination: Yes Review of Systems - Review of Systems Notes: Review HPI for review of systems., All other systems negative Physical Exam - Vital signs Vitals: BP 149/96 H 09/24/18 00:07 - General General appearance: Alert In distress: None - HEENT Head: Normocephalic, Other - left eyebrow laceration Eyes: Normal Conjunctiva: Normal Extraocular movements intact: Yes Pupils: PERRL Ears: Normal External canal: Normal Neck: Normal, Supple. No: Lymphadenopathy - Respiratory Respiratory status: No respiratory distress Chest status: Nontender Breath sounds: Normal Chest palpation: Normal - Cardiovascular Rhythm: Regular Heart sounds: Normal auscultation Murmur: No - Abdominal Inspection: Normal Distension: No distension Bowel sounds: Normal Tenderness: Nontender Organomegaly: No organomegaly - Back Back: Tender - reports generalized low back pain, no obvious deformity good distal movement and sensation no weakness - Extremities General upper extremity: Normal ROM General lower extremity: Normal ROM - Neurological Neuro grossly intact: Yes Cognition: Normal Orientation: AAOx4 [place] Coma Scale Eye Opening: Spontaneous [place] Coma Scale Verbal: Oriented [place] Coma Scale Motor: Obeys Commands Cornelio Coma Scale Total: 15 Speech: Normal Additional motor exam normals: Equal re dye hand - Psychological Associated symptoms: Normal affect, Normal mood - Skin Skin Temperature: Warm Skin Moisture: Dry Skin Color: Normal Skin irregularity: Laceration Location of irregularity: Face - left eyebrow 1.5 cm Course - Re-evaluation Re-evalutation: 09/23/18 This 63-year-old male presents emergency department post fall with a laceration to his left eyebrow. All CT results are negative. Lumbar spine CT notes moderate canal stenosis of L4-L5, no change from previous CT lumbar spine. labs unremarkable, EKG SR, no st elevation, no T wave inversion. Suture completed without problems. pt to be discharged back to [facility]. Dictation of this chart was performed using voice recognition software; therefore, there may be some unintended grammatical errors. Cervical Spine CT 09/23/18 21:28 IMPRESSION: No acute fracture or subluxation of the cervical spine. Head CT 09/23/18 21:28 IMPRESSION: No acute intracranial findings. Lumbar Spine CT 09/23/18 21:28 IMPRESSION: 1. No acute compression fracture of the lumbar spine. 2. Moderate canal stenosis at L4-L5 due to disc bulge. Consider MRI for complete evaluation. 09/23/18 23:52 09/23/18 22:15 09/23/18 22:15 MCV 90 fl (80-97) 09/23/18 22:15 MCH 29.7 pg (27.0-33.4) 09/23/18 22:15 MCHC 33.2 g/dL (32.0-36.0) 09/23/18 22:15 RDW 13.9 % (11.5-14.0) 09/23/18 22:15 Seg Neutrophils % 64.5 % (42-78) 09/23/18 22:15 Lymphocytes % 24.6 % (13-45) 09/23/18 22:15 Monocytes % 7.0 % (3-13) 09/23/18 22:15 Eosinophils % 2.9 % (0-6) 09/23/18 22:15 Basophils % 1.0 % (0-2) 09/23/18 22:15 Absolute Neutrophils 4.5 10^3/uL (1.7-8.2) 09/23/18 22:15 Absolute Lymphocytes 1.7 10^3/uL (0.5-4.7) 09/23/18 22:15 Absolute Monocytes 0.5 10^3/uL (0.1-1.4) 09/23/18 22:15 Absolute Eosinophils 0.2 10^3/uL (0.0-0.6) 09/23/18 22:15 Absolute Basophils 0.1 10^3/uL (0.0-0.2) 09/23/18 22:15 Chloride 103 mmol/L (98-107) 09/23/18 22:15 Carbon Dioxide 26 mmol/L (22-30) 09/23/18 22:15 Anion Gap 11 (5-19) 09/23/18 22:15 Est GFR ( Amer) > 60 (>60) 09/23/18 22:15 Est GFR (Non-Af Amer) > 60 (>60) 09/23/18 22:15 Glucose 111 mg/dL (75-110) H 09/23/18 22:15 Calcium 8.8 mg/dL (8.4-10.2) 09/23/18 22:15 Total Bilirubin 0.2 mg/dL (0.2-1.3) 09/23/18 22:15 AST 23 U/L (17-59) 09/23/18 22:15 Alkaline Phosphatase 66 U/L (38-126) 09/23/18 22:15 Total Protein 6.7 g/dL (6.3-8.2) 09/23/18 22:15 Albumin 3.9 g/dL (3.5-5.0) 09/23/18 22:15 09/24/18 00:03 - Vital Signs Vital signs: Temp Pulse Resp BP Pulse Ox 149/96 H 09/24/18 00:07 - Laboratory Result Diagrams: 09/23/18 22:15 09/23/18 22:15 Laboratory results interpreted by me: 09/23/18 22:15 Glucose 111 H - Diagnostic Test Radiology reviewed: Image reviewed, Reports reviewed - EKG Interpretation by Me EKG shows normal: Sinus rhythm Rate: Normal Rhythm: NSR Procedures - Laceration/Wound Repair Face Time completed: 23:48 Wound length (cm): 1.5 Wound's Depth, Shape: Superficial Laceration pre-procedure: Shur-Clens applied Anesthetic type: 1% Lidocaine Wound explored: Clean Irrigated w/ Saline (mLs): 100 Wound Repaired With: Sutures Suture Size/Type: 3:0, Prolene Number of Sutures: 2 Layer Closure?: No Adult Head Front/Back picture: 1 - 1.5 cm lac to left eyebrow closed with 2 sutures. pt tolerated procedure well Discharge - Discharge Clinical Impression: Fall Qualifiers: Encounter type: initial encounter Qualified Code(s): W19.XXXA - Unspecified fall, initial encounter Laceration of eyebrow, left Qualifiers: Encounter type: initial encounter Qualified Code(s): S01.112A - Laceration without foreign body of left eyelid and periocular area, initial encounter Low back pain Qualifiers: Chronicity: chronic Back pain laterality: unspecified Condition: Stable Disposition: HOME, SELF-CARE Instructions: Acetaminophen, Laceration Care ([facility]), Low Back Pain ([facility]), Soap Cleansing ([facility]), Tetanus Immunization Given ([facility]) Additional Instructions: *You have been treated post fall for eyebrow laceration, low back pain *Take tylenol or motrin as indicated for pain *Monitor the site for signs of infection such as increasing pain, redness, swelling, warmth *keep the site clean *Follow up in the Emergency department in 5 days for suture removal *Return to ED earlier for signs of infection, worsening condition, changes, needs Monitor your blood pressure. Your blood pressure was elevated today. This may be because you were anxious, in pain or because you need medication. It is important to follow up with your primary care provider for full evaluation. Forms: Elevated Blood Pressure Referrals: KAELA CHAMBERLAIN PA [Primary Care Provider] - Follow up in 3-5 days
[2018-09-23 22:32] LABS: ABSOLUTE BASOPHILS # (AUTO) 0.1 10^3/uL (0.0-0.2); ABSOLUTE EOSINOPHILS # (AUTO) 0.2 10^3/uL (0.0-0.6); ABSOLUTE LYMPHOCYTES (AUTO) 1.7 10^3/uL (0.5-4.7); ABSOLUTE MONOCYTES (AUTO) 0.5 10^3/uL (0.1-1.4); ABSOLUTE NEUT (AUTO) 4.5 10^3/uL (1.7-8.2); EOSINOPHILS % (AUTO) 2.9 % (0-6); HEMATOCRIT 41.7 % (37.9-51.0); HEMOGLOBIN 13.8 g/dL (13.5-17.0); LYMPHOCYTES % (AUTO) 24.6 % (13-45); MEAN CORPUSCULAR HEMOGLOBIN 29.7 pg (27.0-33.4); MEAN CORPUSCULAR HGB CONC 33.2 g/dL (32.0-36.0); MEAN CORPUSCULAR VOLUME 90 fl (80-97); PLATELET COUNT 238 10^3/uL (150-450); RED BLOOD COUNT 4.66 10^6/uL (4.35-5.55); RED CELL DISTRIBUTION WIDTH 13.9 % (11.5-14.0); SEGMENTED NEUTROPHILS % (AUTO) 64.5 % (42-78); TOTAL CELLS COUNTED % (AUTO) 100 %
[2018-09-23 22:44] LABS: ALBUMIN 3.9 g/dL (3.5-5.0); ALKALINE PHOSPHATASE 66 U/L (38-126); ANION GAP 11 (5-19); ASPARTATE AMINO TRANSFERASE 23 U/L (17-59); BILIRUBIN,DIRECT 0.2 mg/dL (0.0-0.4); BILIRUBIN,TOTAL 0.2 mg/dL (0.2-1.3); BLOOD UREA NITROGEN 15 mg/dL (7-20); CALCIUM 8.8 mg/dL (8.4-10.2); CARBON DIOXIDE 26 mmol/L (22-30); CHLORIDE 103 mmol/L (98-107); GLUCOSE 111 mg/dL (75-110); INTERNATIONAL RATION (INR) 0.97; POTASSIUM 3.9 mmol/L (3.6-5.0); PROTHROMBIN TIME 12.9 SEC (11.4-15.4); TOTAL PROTEIN 6.7 g/dL (6.3-8.2)
[2018-09-23 22:45] LABS: PARTIAL THROMBOPLASTIN TIME 27.6 SEC (23.5-35.8)
--- NOTE | 2018-09-23 22:51 | RADIOLOGY REPORT (SQ) ---
CT HEAD WITHOUT IV CONTRAST EXAM DATE: 09/23/2018 9:28 PM CDT HISTORY: Fall laceration. COMPARISON: 09/14/2018 TECHNIQUE: CT scan of the brain without IV contrast. This exam was performed according to our departmental dose-optimization program, which includes automated exposure control, adjustment of the mA and/or kV according to patient size and/or use of iterative reconstruction technique. FINDINGS: The ventricles, cisterns, and sulci are age-appropriate. No evidence of acute infarction, intracranial hemorrhage, extra-axial fluid collection, or midline shift. No air-fluid levels are seen in the paranasal sinuses to suggest acute sinusitis. No depressed skull fracture. IMPRESSION: No acute intracranial findings.
--- NOTE | 2018-09-23 22:53 | RADIOLOGY REPORT (SQ) ---
CT CERVICAL SPINE WITHOUT IV CONTRAST EXAM DATE: 09/23/2018 9:28 PM CDT HISTORY: Neck pain. COMPARISON: None. TECHNIQUE: CT scan of the cervical spine without IV contrast. This exam was performed according to our departmental dose-optimization program, which includes automated exposure control, adjustment of the mA and/or kV according to patient size and/or use of iterative reconstruction technique. FINDINGS: No acute cervical fracture or prevertebral soft tissue swelling is seen. There is straightening of the normal cervical lordosis, which may be due to cervical collar, muscle spasm, or patient positioning. Multilevel degenerative disc disease along with facet arthropathy is present. No advanced spinal canal stenosis. IMPRESSION: No acute fracture or subluxation of the cervical spine.
--- NOTE | 2018-09-23 22:55 | RADIOLOGY REPORT (SQ) ---
CT LUMBAR SPINE WITHOUT IV CONTRAST EXAM DATE: 09/23/2018 9:28 PM CDT HISTORY: Fall laceration. COMPARISON: 08/26/2018 TECHNIQUE: CT scan of the lumbar spine without IV contrast. This exam was performed according to our departmental dose-optimization program, which includes automated exposure control, adjustment of the mA and/or kV according to patient size and/or use of iterative reconstruction technique. FINDINGS: No acute compression fracture is visualized. There is mild multilevel degenerative disc disease greatest at L5-S1. The facet joints are intact. Mild degenerative changes of the bilateral sacroiliac joints. Small disc bulges throughout the lumbar spine greatest at L4-L5 with moderate canal stenosis at this level, unchanged from prior study. IMPRESSION: 1. No acute compression fracture of the lumbar spine. 2. Moderate canal stenosis at L4-L5 due to disc bulge. Consider MRI for complete evaluation.
[2018-09-23] MEDS ORDERED: LIDOCAINE 1% INJ-PF (10 MG/ML) 30 ML SDV INJ ONE (23:13)
[2018-09-23] MEDS ORDERED: DIPH/PERTUSS(ACELL)/TETANUS VAC/PF 0.5 ML SYR (>=10YO) IM ONE (23:50)
[2018-09-24 00:08] VITALS: BP 149/96
--- NOTE | 2018-09-24 11:40 | EKG REPORT ---
SEVERITY:- NORMAL ECG - SINUS RHYTHM : Confirmed by: Tyrel Rodriguez 24-Sep-2018 11:40:12
== END 2018-09-24 00:48 | disposition home or self-care (01) ==
LOC: ER 21:00
DX: S01.112A Laceration without foreign body of left eyelid and periocular area, initial encounter (principal); W19.XXXA Unspecified fall, initial encounter; W22.8XXA Striking against or struck by other objects, initial encounter; Y92.199 Unspecified place in other specified residential institution as the place of occurrence of the external cause; I10 Essential (primary) hypertension; R42 Dizziness and giddiness; M51.86 Other intervertebral disc disorders, lumbar region; M48.061 Spinal stenosis, lumbar region without neurogenic claudication; M54.5 Low back pain; G89.29 Other chronic pain
CPT/HCPCS: 93005; 99284; 90471; 36415; 85025; 85610; 85730; 80053; 70450; 72125; 72131; 90715; 93010; 12011; J3490

== ENCOUNTER 2018-09-27 17:35 | Emergency (ER) | payer MEDICARE, MEDICAID ==
[2018-09-27] MEDS ORDERED: ACETAMINOPHEN 325 MG TABLET PO ONE (17:56)
--- NOTE | 2018-09-27 18:02 | ER Document Report ---
ED Medical Screen (RME) - General Chief Complaint: Fall Stated Complaint: FALL Time Seen by Provider: 09/27/18 17:51 Primary Care Provider: KAELA CHAMBERLAIN PA [Primary Care Provider] - Follow up as needed TRAVEL OUTSIDE OF THE [place] IN LAST 30 DAYS: No - HPI Notes: 09/27/18 17:56 Patient is a 63-year-old male with a history of arthritis, bipolar, hypertension who is not on any blood thinners presents complaining of low back pain status post fall at 10 AM today. He denies any head injury or loss of conscious. He has no other pain. Pain does not radiate. He is able to ambulate, but has normal generalized weakness. He has had repeated falls historically with the last one being 4 days ago where he had stitches placed to his left eyebrow. He is otherwise able to eat and drink without difficulty. He is urinating normally. Denies any headache, fever, head injury, neck pain, changes in vision/speech/mentation/hearing, URI, sore throat, chest pain, palpitations, syncope, cough, shortness of breath, wheeze, dyspnea, abdominal pain, nausea/vomiting/diarrhea, urinary retention, dysuria, hematuria, loss of control of bowel or bladder, numbness/tingling, saddle anesthesia, muscle paralysis/weakness, or rash. I have treated and performed a rapid initial assessment of this patient. A comprehensive ED assessment and evaluation of the patient, analysis of test results and completion of medical decision making process will be conducted by additional ED providers. PHYSICAL EXAMINATION: GENERAL: Well-appearing, well-nourished and in no acute distress. A&Ox4. Answers questions appropriately. HEAD: Atraumatic, normocephalic. Non-tender. No pandey sign EYES: Pupils equal round and reactive to light, extraocular movements intact, sclera anicteric, conjunctiva are normal. No raccoon eyes/entrapment ENT: EAC clear b/l. TM's intact b/l without erythema, fluid, or perforation. Nares patent and without discharge. oropharynx clear without exudates. No tonsilar hypertrophy or erythema. Moist mucous membranes. No sinus tenderness. No hemotympanum/CSF discharge. NECK: Normal range of motion, supple without lymphadenopathy. No rigidity. No midline tenderness. Chest: No flail chest. equal rise/fall. Non-tender LUNGS: Breath sounds clear to auscultation bilaterally and equal. No wheezes rales or rhonchi. HEART: Regular rate and rhythm without murmurs, rubs, gallops. ABDOMEN: Soft, nontender, nondistended abdomen. No guarding, no rebound. Normal bowel sounds present. No CVA tenderness bilaterally. No ecchymosis Musculoskeletal: Ext b/l: FROM to passive/active. Strength 5+/5. No deficits noted. No bony tenderness of extremities. Back: FROM to passive/active. Strength 5+/5. + tenderness midline L-spine. No ecchymosis or step-off. Extremities: No cyanosis, clubbing, or edema b/l. Peripheral pulses 2+. Capillary refill less than 2 seconds. NEUROLOGICAL: NIH 0. GCS 15. Cranial nerves grossly intact. Normal speech. Normal sensory, motor exams. Reflexes 2+ b/l. HANNA's negative. Pronator drift negative. Heel/rick, finger/nose wnl. PSYCH: Normal mood, normal affect. SKIN: Warm, Dry, normal turgor, no rashes or lesions noted. - Related Data Allergies/Adverse Reactions: No Known Allergies Allergy (Verified 09/27/18 17:36) Past Medical History - Social History Chew tobacco use (# tins/day): No Frequency of alcohol use: None Drug Abuse: None - Past Medical History Cardiac Medical History: Reports: Hx Hypertension Renal/ Medical History: Denies: Hx Peritoneal Dialysis Psychiatric Medical History: Reports: Hx Bipolar Disorder Denies: Hx Depression - Immunizations Hx Diphtheria, Pertussis, Tetanus Vaccination: Yes History of Influenza Vaccine for 11/2016 - 04/2017 Season: Yes Physical Exam - Vital signs Vitals: Temp Pulse Resp BP Pulse Ox 98.0 F 82 20 116/90 H 97 09/27/18 17:40 09/27/18 17:40 09/27/18 17:40 09/27/18 17:40 09/27/18 17:40 Course - Vital Signs Vital signs: Temp Pulse Resp BP Pulse Ox 98.0 F 82 20 116/90 H 97 09/27/18 17:40 09/27/18 17:40 09/27/18 17:40 09/27/18 17:40 09/27/18 17:40 Doctor's Discharge - Discharge Referrals: KAELA CHAMBERLAIN PA [Primary Care Provider] - Follow up as needed
--- NOTE | 2018-09-27 18:38 | RADIOLOGY REPORT (SQ) ---
EXAM DESCRIPTION: CT LUMBAR SPINE WITHOUT COMPLETED DATE/TIME: 09/27/2018 6:24 pm REASON FOR STUDY: LOWER BACK PAIN COMPARISON: CT lumbar spine 09/23/2018, 08/26/2018 MRI lumbar spine 09/07/2017 TECHNIQUE: Axial images acquired through the lumbar spine without intravenous contrast. Images revi ewed with lung, soft tissue and bone windows. Reconstructed coronal and sagittal MPR images reviewed . All images stored on PACS. All CT scanners at this facility use dose modulation, iterative reconstruction, and/or weight based d osing when appropriate to reduce radiation dose to as low as reasonably achievable (ALARA). [facility]: Dose Right [facility]: CareDose [facility]: Dose Right [facility]: Teradose 4D [facility]: [employer] RADIATION DOSE: CT Rad equipment meets quality standard of care and radiation dose reduction techniq ues were employed. CTDIvol: 13.2 mGy. DLP: 473 mGy-cm. mGy. LIMITATIONS: None. FINDINGS: SEGMENTATION: Normal. No transitional anatomy. ALIGNMENT: Normal. VERTEBRAL BODIES: No fractures. No dislocation. No acute findings. DISCS: The T12-L1 and L1-2 levels are unremarkable. At L2-3, mild diffuse posterior disc bulging and bony spurring, mild facet hypertrophy is present. T here is borderline central canal narrowing and moderate right foraminal narrowing, mild left foramina l narrowing. At L3-4, mild diffuse posterior disc bulging and mild bilateral facet and ligament hypertrophy cause borderline central canal narrowing. There is mild bilateral foraminal narrowing. At L4-5, disc space loss of height is present with broad diffuse posterior disc bulge and bony spurri ng left greater than right. Encroachment on the left lateral recess containing the proximal left L5 nerve root. Mild central canal stenosis. There is moderate bilateral foraminal narrowing. At L5-S1, mild diffuse posterior disc bulge is present with mild facet hypertrophy. No central steno sis. Moderate bilateral foraminal narrowing is present. PEDICLES, TRANSVERSE PROCESSES: No acute findings FACETS, POSTERIOR ELEMENTS: No acute findings HARDWARE: None in the spine. VISUALIZED RIBS: No fractures. SOFT TISSUES: No significant or acute finding in adjacent soft tissues. OTHER: No other significant finding. IMPRESSION: Degenerative disc changes most pronounced at L4-5, similar compared to previous exams TECHNICAL DOCUMENTATION: JOB ID: [id number] Quality ID # [id number]: Final reports with documentation of one or more dose reduction techniques (e.g., Au tomated exposure control, adjustment of the mA and/or kV according to patient size, use of iterative reconstruction technique) 2010 [employer]- All Rights Reserved Reading location - IP/workstation name: [email or web address]
--- NOTE | 2018-09-27 19:15 | ER Document Report ---
ED General - General Chief Complaint: Fall Stated Complaint: FALL Time Seen by Provider: 09/27/18 17:51 Primary Care Provider: KAELA CHAMBERLAIN PA [NO LOCAL MD] - Follow up in 3-5 days Notes: Patient is a 63-year-old male with a past medical history of bipolar disorder, hypertension, and insomnia who presents to the emergency department after a fall. Patient states that he fell, and has some low back pain. He states that he feels better and does not have any pain anymore. CT was done in triage and CT was normal. Patient denies any new weakness, numbness or tingling, or any other symptoms. Patient denies any fever, cough, dysuria, or any other symptoms. States that his back did not hurt before the fall. TRAVEL OUTSIDE OF THE [place] IN LAST 30 DAYS: No - Related Data Allergies/Adverse Reactions: No Known Allergies Allergy (Verified 09/27/18 17:36) Past Medical History - Social History Smoking Status: Never Smoker Chew tobacco use (# tins/day): No Frequency of alcohol use: None Drug Abuse: None Family History: Reviewed & Not Pertinent Patient has suicidal ideation: No Patient has homicidal ideation: No - Past Medical History Cardiac Medical History: Reports: Hx Hypertension Renal/ Medical History: Denies: Hx Peritoneal Dialysis Psychiatric Medical History: Reports: Hx Bipolar Disorder Denies: Hx Depression - Immunizations Hx Diphtheria, Pertussis, Tetanus Vaccination: Yes Review of Systems - Review of Systems Notes: REVIEW OF SYSTEMS: CONSTITUTIONAL : Denies recent illness. Denies recent unintentional weight loss. Denies fever, chills, or sweats. EENT: Denies eye, ear, throat, or mouth pain, discharge, or symptoms. Denies nasal or sinus congestion. CARDIOVASCULAR: Denies chest pain. RESPIRATORY: Denies shortness of breath, cough, congestion, difficulty breathing, or wheezing. GASTROINTESTINAL: Denies nausea, vomiting, and diarrhea. Denies abdominal pain. Denies constipation. GENITOURINARY: Denies difficulty urinating, burning, blood in urine, urgency or frequency. MUSCULOSKELETAL: See HPI SKIN: Denies rash, itchiness, or lesions HEMATOLOGIC : Denies easy bruising or bleeding. LYMPHATIC: Denies swollen, painful, enlarged glands. NEUROLOGICAL: Denies no numbness or tingling denies weakness. Denies headache. Denies altered mental status. Denies alteration in speech. PSYCHIATRIC: Denies stress, anxiety, alteration in sleep patterns, or depression. All other systems reviewed and negative. Physical Exam - Vital signs Vitals: Temp Pulse Resp BP Pulse Ox 98.0 F 82 20 116/90 H 97 09/27/18 17:40 09/27/18 17:40 09/27/18 17:40 09/27/18 17:40 09/27/18 17:40 - Notes Notes: PHYSICAL EXAMINATION: GENERAL: Appears well, healthy, well-nourished, no acute distress. HEAD: Normocephalic, atraumatic. EYES: PERRL, conjunctiva normal, all extraocular movements intact, sclera nonicteric ENT: Moist mucous membranes. NECK: Supple, no noticeable swelling, redness, rash. Normal range of motion. LUNGS: Equal breath sounds bilaterally and clear to auscultation. No wheezes rales or rhonchi. CARDIOVASCULAR: S1-S2, regular rate, regular rhythm. Radial pulses 2+, normal. ABDOMEN: Normoactive bowel sounds. Soft, nontender, no guarding, no rebound tenderness, and no masses palpated. EXTREMITIES: Normal strength and range of motion, no pitting or edema. No cyanosis. NEUROLOGICAL: Moves all extremities upon command. Strength 5/5 in all extremities. PSYCH: Normal mood, normal affect. SKIN: Warm, dry. No rash, lesions, ulcerations noted. Normal skin turgor. Course - Re-evaluation Re-evalutation: 09/27/18 18:[address] scan is negative for any acute fractures. Patient was here 4 days ago for a fall and according to his medical record, he has a history of falling. I asked him if he possibly tripped over and no. He is wearing Crocs shoes that seem to be a little big on him. There is a possibility that the shoes are not fitting him well. I expressed that may need to change his shoes to tennis shoes, as they may help with his balance. There are no neurological deficits noted. No neurological deficits noted. All extremities are strong. I would like him to provide urine to rule out any urinary tract infection. Urinalysis ordered. Lung sounds are clear and I do not suspect pneumonia. He denies any fever. Vital signs are stable. I gave him the results of CAT scan he said that he was happy that nothing was broken. 09/27/18 21:10 Unfortunately, the patient has yet to provide a urine sample. He states that he voided earlier, but did not void in a cup. He is walking in the halls and states that he normally walks a lot where he lives. I do not suspect the patient has any life-threatening etiology at this time. He has had multiple falls in the past which is his normal. Follow-up precautions were given. Verbal discharge instructions were given to the patient. They verbalized understanding. They are stable for discharge. - Vital Signs Vital signs: Temp Pulse Resp BP Pulse Ox 98.1 F 76 18 123/76 96 09/28/18 03:09 09/28/18 03:09 09/28/18 03:09 09/28/18 03:09 09/28/18 03:09 Discharge - Discharge Clinical Impression: Fall Qualifiers: Encounter type: initial encounter Qualified Code(s): W19.XXXA - Unspecified fall, initial encounter Condition: Stable Disposition: HOME-SNF (ED ONLY) Additional Instructions: You were seen today in the emergency department for a fall. Your CT was normal. You do not have any broken bones. Please follow-up with your primary care provider regards to this visit. Please return if you have worsening symptoms. Referrals: KAELA CHAMBERLAIN PA [NO LOCAL MD] - Follow up in 3-5 days
[2018-09-28 03:09] VITALS: BP 123/76
== END 2018-09-28 03:09 ==
LOC: ER 17:35
DX: M54.5 Low back pain (principal); W19.XXXA Unspecified fall, initial encounter; I10 Essential (primary) hypertension
CPT/HCPCS: 72131; A9270; 99283

== ENCOUNTER 2019-01-01 15:27 | Emergency (ER) | payer MEDICARE, MEDICAID ==
[2019-01-01] MEDS ORDERED: RINGERS SOLUTION,LACTATED 1,000 ML IV ONE ×2 (17:33→18:58)
[2019-01-01 17:47] LABS: ABSOLUTE EOSINOPHILS # (AUTO) 0.1 10^3/uL (0.0-0.6); ABSOLUTE MONOCYTES (AUTO) 0.8 10^3/uL (0.1-1.4); ABSOLUTE NEUT (AUTO) 7.3 10^3/uL (1.7-8.2); BASOPHILS % (AUTO) 0.4 % (0-2); HEMATOCRIT 38.5 % (37.9-51.0); HEMOGLOBIN 13.3 g/dL (13.5-17.0); INTERNATIONAL RATION (INR) 1.01; LYMPHOCYTES % (AUTO) 19.1 % (13-45); MEAN CORPUSCULAR HEMOGLOBIN 30.7 pg (27.0-33.4); MEAN CORPUSCULAR HGB CONC 34.4 g/dL (32.0-36.0); MEAN CORPUSCULAR VOLUME 89 fl (80-97); MONOCYTES % (AUTO) 8.1 % (3-13); PLATELET COUNT 257 10^3/uL (150-450); PROTHROMBIN TIME 13.3 SEC (11.4-15.4); RED BLOOD COUNT 4.32 10^6/uL (4.35-5.55); RED CELL DISTRIBUTION WIDTH 13.7 % (11.5-14.0); SEGMENTED NEUTROPHILS % (AUTO) 71.4 % (42-78); TOTAL CELLS COUNTED % (AUTO) 100 %; WHITE BLOOD COUNT 10.2 10^3/uL (4.0-10.5)
[2019-01-01 17:54] LABS: ALBUMIN 3.7 g/dL (3.5-5.0); ALCOHOL < 10 mg/dL (NONE DETECTED); ALKALINE PHOSPHATASE 68 U/L (38-126); ANION GAP 11 (5-19); ASPARTATE AMINO TRANSFERASE 21 U/L (17-59); BILIRUBIN,DIRECT 0.2 mg/dL (0.0-0.4); BILIRUBIN,TOTAL 0.3 mg/dL (0.2-1.3); BLOOD UREA NITROGEN 21 mg/dL (7-20); CALCIUM 9.5 mg/dL (8.4-10.2); CARBON DIOXIDE 26 mmol/L (22-30); CHLORIDE 106 mmol/L (98-107); GLUCOSE 105 mg/dL (75-110); POTASSIUM 4.3 mmol/L (3.6-5.0); TOTAL PROTEIN 6.9 g/dL (6.3-8.2)
--- NOTE | 2019-01-01 18:03 | RADIOLOGY REPORT (SQ) ---
EXAM DESCRIPTION: CT HEAD WITHOUT COMPLETED DATE/TIME: 01/01/2019 5:47 pm REASON FOR STUDY: ams COMPARISON: 09/23/2018 TECHNIQUE: Axial images acquired through the brain without intravenous contrast. Images reviewed wit h bone, brain and subdural windows. Images stored on PACS. All CT scanners at this facility use dose modulation, iterative reconstruction, and/or weight based d osing when appropriate to reduce radiation dose to as low as reasonably achievable (ALARA). [facility]: Dose Right [facility]: CareDose [facility]: Dose Right [facility]: Teradose 4D [facility]: [employer] RADIATION DOSE: CT Rad equipment meets quality standard of care and radiation dose reduction techniq ues were employed. CTDIvol: 53.2 mGy. DLP: 1150 mGy-cm.. LIMITATIONS: None. FINDINGS: VENTRICLES: Normal size and contour. CEREBRUM: No masses. No hemorrhage. No midline shift. Age appropriate white matter. No evidence for a cute infarction. CEREBELLUM: No masses. No hemorrhage. No alteration of density. No evidence for acute infarction. EXTRA-AXIAL SPACES: No fluid collections. ORBITS AND GLOBE: No intra- or extraconal masses. Normal contour of globe without masses. CALVARIUM: No fracture. PARANASAL SINUSES: No fluid or mucosal thickening. SOFT TISSUES: No mass or hematoma. OTHER: No other significant finding. IMPRESSION: NO ACUTE INTRACRANIAL FINDINGS. EVIDENCE OF ACUTE STROKE: NO. TECHNICAL DOCUMENTATION: JOB ID: [id number] Quality ID # [id number]: Final reports with documentation of one or more dose reduction techniques (e.g., Au tomated exposure control, adjustment of the mA and/or kV according to patient size, use of iterative reconstruction technique) 2010 [employer]- All Rights Reserved Reading location - IP/workstation name: [email or web address]
[2019-01-01 18:05] LABS: CREATINE KINASE MB 0.81 ng/mL (<4.55); NT PRO BNP 53 pg/mL (<125)
[2019-01-01 18:08] LABS: TROPONIN I < 0.012 ng/mL
[2019-01-01 18:15] LABS: APPEARANCE,URINE SLIGHTLY-CLOUDY; BILIRUBIN,URINE NEGATIVE (NEGATIVE); CALCIUM OXALATE CRYSTALS,URINE FEW /HPF; COLOR,URINE YELLOW; GLUCOSE, URINE NEGATIVE (NEGATIVE); KETONES,URINE NEGATIVE (NEGATIVE); LEUKOCYTE ESTERASE,URINE NEGATIVE (NEGATIVE); NITRITE,URINE NEGATIVE (NEGATIVE); PROTEIN,URINE NEGATIVE (NEGATIVE); URINE SPECIFIC GRAVITY 1.023
--- NOTE | 2019-01-01 18:26 | ER Document Report ---
ED General - General Chief Complaint: Altered Mental Status Stated Complaint: ALTERED MENTAL STATUS Time Seen by Provider: 01/01/19 17:25 Mode of Arrival: Ambulatory Information source: Patient, Emergency Med Personnel, [facility] Records Cannot obtain history due to: Altered mental status Notes: 63-year-old male presents via EMS with reported altered mental status. Patient does have a history of bipolar disorder, hypertension. Nurse reports that the patient was alert and oriented x3 for her upon her exam but on my exam he is alert and oriented x1. Patient has no physical complaints at this time. He is a poor informant. He does deny chest pain, shortness of breath, abdominal pain, weakness, headache. We did contact the nursing facility who reports that the patient often does become confused and that this is his baseline. They are concerned that the patient may have a urinary tract infection. TRAVEL OUTSIDE OF THE [place] IN LAST 30 DAYS: No - HPI Onset: Just prior to arrival Associated symptoms: denies: Chest pain, Nonproductive cough, Diarrhea, Earache, Fever, Headache, Nausea, Vomiting, Shortness of breath Exacerbated by: Denies Relieved by: Denies Similar symptoms previously: Yes Recently seen / treated by doctor: No - Related Data Allergies/Adverse Reactions: No Known Allergies Allergy (Verified 09/27/18 17:36) Past Medical History - General Information source: Patient, Emergency Med Personnel, [facility] Records, Outside Facility Records Cannot obtain history due to: Altered mental status - Social History Smoking Status: Unknown if Ever Smoked Frequency of alcohol use: None Drug Abuse: None Lives with: Long-Term Family History: Reviewed & Not Pertinent Patient has suicidal ideation: No Patient has homicidal ideation: No - Past Medical History Cardiac Medical History: Reports: Hx Hypertension Renal/ Medical History: Denies: Hx Peritoneal Dialysis Psychiatric Medical History: Reports: Hx Bipolar Disorder Denies: Hx Depression - Immunizations Hx Diphtheria, Pertussis, Tetanus Vaccination: Yes Review of Systems - Review of Systems Notes: REVIEW OF SYSTEMS: CONSTITUTIONAL : Denies fever, chills, or sweats. Denies recent illness. Denies weight loss, recent hospitalizations. EENT: Denies visual changes, eye pain. Denies sore throat, oral lesions, difficulty swallowing. CARDIOVASCULAR: Denies chest pain. Denies palpitations. Denies lower extremity edema. RESPIRATORY: Denies cough. Denies shortness of breath, wheezing. GASTROINTESTINAL: Denies abdominal pain or distention. Denies nausea, vomiting, or diarrhea. Denies blood in vomitus, stools, or per rectum. Denies black, tarry stools. Denies constipation. GENITOURINARY: Denies difficulty urinating, painful urination, frequency, blood in urine, testicular pain or penile discharge. MUSCULOSKELETAL: Denies back or neck pain or stiffness. Denies joint pain or swelling. SKIN: Denies rash, lesions or sores. HEMATOLOGIC : Denies easy bruising or bleeding. LYMPHATIC: Denies swollen glands. NEUROLOGICAL: Denies confusion or altered mental status. Denies loss of consciousness. Denies dizziness or lightheadedness. Denies headache. Denies weakness or paralysis. Denies problems difficulty with ambulation, slurred speech. Denies sensory loss, numbness, or tingling. Denies seizures. PSYCHIATRIC: Denies anxiety or stress. Denies depression, suicidal ideation, or Physical Exam - Vital signs Vitals: Resp Pulse Ox 13 94 01/01/19 15:39 01/01/19 15:39 - Notes Notes: PHYSICAL EXAMINATION: GENERAL: Well-appearing, well-nourished and in no acute distress. HEAD: Atraumatic, normocephalic. EYES: Pupils equal round and reactive to light, extraocular movements intact, sclera anicteric, conjunctiva are normal. ENT: Nares patent, oropharynx clear without exudates. Dry mucous membranes. NECK: Normal range of motion, supple without lymphadenopathy LUNGS: Breath sounds clear to auscultation bilaterally and equal. No wheezes rales or rhonchi. HEART: Regular rate and rhythm without murmurs ABDOMEN: Soft, nontender, nondistended abdomen. No guarding, no rebound. No masses appreciated. Musculoskeletal: Normal range of motion, no pitting or edema. No cyanosis. NEUROLOGICAL: Cranial nerves grossly intact. Normal speech Normal sensory, motor exams PSYCH: Normal mood, normal affect. SKIN: Warm, Dry, normal turgor, no rashes or lesions noted. Course - Re-evaluation Re-evalutation: 01/01/19 18:26 Laboratory 01/01/19 01/01/19 01/01/19 16:00 16:00 16:00 WBC 10.2 RBC 4.32 L Hgb 13.3 L Hct 38.5 MCV 89 MCH 30.7 MCHC 34.4 RDW 13.7 Plt Count 257 Lymph % (Auto) 19.1 Rabun % (Auto) 8.1 Eos % (Auto) 1.0 Baso % (Auto) 0.4 Absolute Neuts (auto) 7.3 Absolute Lymphs (auto) 2.0 Absolute Monos (auto) 0.8 Absolute Eos (auto) 0.1 Absolute Basos (auto) 0.0 Seg Neutrophils % 71.4 PT 13.3 INR 1.01 Sodium 143.2 Potassium 4.3 Chloride 106 Carbon Dioxide 26 Anion Gap 11 BUN 21 H Creatinine 1.54 H Est GFR ( Amer) 56 L Est GFR (MDRD) Non-Af 46 L Glucose 105 POC Glucose Calcium 9.5 Total Bilirubin 0.3 Direct Bilirubin 0.2 Neonat Total Bilirubin Not Reportable Neonat Direct Bilirubin Not Reportable Neonat Indirect Bili Not Reportable AST 21 ALT 22 Alkaline Phosphatase 68 CK-MB (CK-2) Troponin I NT-Pro-B Natriuret Pep Total Protein 6.9 Albumin 3.7 Lipase 28.9 Urine Color Urine Appearance Urine pH Ur Specific Rayne Urine Protein Urine Glucose (UA) Urine Ketones Urine Blood Urine Nitrite Urine Bilirubin Urine Urobilinogen Ur Leukocyte Esterase Urine WBC (Auto) Urine RBC (Auto) U Hyaline Cast (Auto) Urine Bacteria (Auto) Squamous Epi Cells Auto Calcium Oxalate Cr Auto Urine Mucus (Auto) Urine Ascorbic Acid Serum Alcohol < 10 01/01/19 01/01/19 01/01/19 16:00 16:00 17:15 WBC RBC Hgb Hct MCV MCH MCHC RDW Plt Count Lymph % (Auto) Rabun % (Auto) Eos % (Auto) Baso % (Auto) Absolute Neuts (auto) Absolute Lymphs (auto) Absolute Monos (auto) Absolute Eos (auto) Absolute Basos (auto) Seg Neutrophils % PT INR Sodium Potassium Chloride Carbon Dioxide Anion Gap BUN Creatinine Est GFR ( Amer) Est GFR (MDRD) Non-Af Glucose POC Glucose 105 Calcium Total Bilirubin Direct Bilirubin Neonat Total Bilirubin Neonat Direct Bilirubin Neonat Indirect Bili AST ALT Alkaline Phosphatase CK-MB (CK-2) 0.81 Troponin I < 0.012 NT-Pro-B Natriuret Pep 53 Total Protein Albumin Lipase Urine Color YELLOW Urine Appearance SLIGHTLY-CLOUDY Urine pH 5.0 Ur Specific Rayne 1.023 Urine Protein NEGATIVE Urine Glucose (UA) NEGATIVE Urine Ketones NEGATIVE Urine Blood NEGATIVE Urine Nitrite NEGATIVE Urine Bilirubin NEGATIVE Urine Urobilinogen 2.0 H Ur Leukocyte Esterase NEGATIVE Urine WBC (Auto) 1 Urine RBC (Auto) 3 U Hyaline Cast (Auto) 27 Urine Bacteria (Auto) TRACE Squamous Epi Cells Auto <1 Calcium Oxalate Cr Auto FEW Urine Mucus (Auto) OCC Urine Ascorbic Acid NEGATIVE Serum Alcohol Head CT 01/01/19 17:32 IMPRESSION: NO ACUTE INTRACRANIAL FINDINGS. EVIDENCE OF ACUTE STROKE: NO. Temp Pulse Resp BP Pulse Ox 99.6 F 84 13 102/79 96 01/01/19 15:47 01/01/19 15:47 01/01/19 18:00 01/01/19 16:00 01/01/19 18:00 01/01/19 21:05 63-year-old male presented from [facility] with reports of altered mental status. When the nursing facility was called back they state that the patient is at his baseline mental status which is often confused but they were concerned that he may have a urinary tract infection. Vital signs reviewed and within normal limits. Patient does not appear toxic but he does appear dehydrated. CBC is without leukocytosis or anemia. Initial CMP did show an acute kidney injury with a creatinine of 1.51 which improved to a creatinine of 1.20 after gentle rehydration. No evidence of infection in the urine. Head CT shows no evidence of acute stroke. Patient will be discharged back to the nursing facility in stable condition. Patient was evaluated and treated as appropriate for the patient's presenting symptoms and complaint, with consideration of any critical or life threatening conditions that may be associated with their obtained history and exam as noted above. All results were discussed with patient and... Patient provided the opportunity to ask questions, and express concerns. Patient was educated on treatments based on their presumed diagnosis as noted above. At this time we will discharge the patient with return precautions and follow-up recommendations. Verbal discharge instructions given a the bedside. Medication warnings reviewed. Patient is in agreement with this plan and has verbalized understanding of return precautions. After careful consideration I feel that that patient can be safely discharged from the emergency department, they were advised to followup with a primary care physician in 2-3 days. Dictation on this chart was performed using voice recognition software and may result in unintended grammatical, spelling, syntax or errors. - Vital Signs Vital signs: Temp Pulse Resp BP Pulse Ox 99.6 F 84 14 167/95 H 98 01/01/19 15:47 01/01/19 15:47 01/01/19 20:18 01/01/19 20:18 01/01/19 20:18 - Laboratory Result Diagrams: 01/01/19 16:00 01/01/19 20:00 Laboratory results interpreted by me: 01/01/19 01/01/19 01/01/19 16:00 16:00 16:00 RBC 4.32 L Hgb 13.3 L BUN 21 H Creatinine 1.54 H Est GFR ( Amer) 56 L Est GFR (MDRD) Non-Af 46 L Ammonia Urine Urobilinogen 2.0 H 01/01/19 17:50 RBC Hgb BUN Creatinine Est GFR ( Amer) Est GFR (MDRD) Non-Af Ammonia < 8.7 L Urine Urobilinogen - Diagnostic Test Radiology reviewed: Image reviewed, Reports reviewed - EKG Interpretation by Me EKG shows normal: Sinus rhythm Rate: Normal Rhythm: NSR When compared to previous EKG there are: No significant change Discharge - Discharge Clinical Impression: Dehydration, Confusion, Opiate use Condition: Good Disposition: HOME, SELF-CARE Instructions: Altered Mental Status ([facility]), Dehydration ([facility]) Additional Instructions: Please be sure to drink plenty of fluids while out in the heat. You can purchase packets of electrolyte replacement solutions such as Pedialyte or propel that you can add to plain water. This will help to make sure that you are getting adequate electrolytes in addition to fluids while working outside. Please return to the emergency department if you pass out, developed diffuse muscle cramping, have persistent vomiting, or have any other symptoms that are worrisome to you. Follow up with your [id number] hours for further care or return to the ED IMMEDIATELY if symptoms worsen or you have any concerns. If you cannot afford to follow up with your primary care physician a list of low cost clinics have been provided at the end of your discharge papers as well. Most prescribed medications have multiple side effects. The safest thing to do is when filling your prescription speak to your pharmacist regarding possible interactions with your normal home medications and over the counter medications such as Ibuprofen, Tylenol, Benadryl. If you experience any symptoms that cause you discomfort or concern you should discontinue the medication immediately and return to the emergency room or call your primary care physician. Forms: Elevated Blood Pressure
[2019-01-01 18:31] LABS: URINE AMPHETAMINES SCREEN NEGATIVE; URINE BARBITURATES SCREEN NEGATIVE; URINE BENZODIAZEPINES SCREEN NEGATIVE; URINE COCAINE SCREEN NEGATIVE; URINE MARIJUANA (THC) SCREEN NEGATIVE; URINE METHADONE SCREEN NEGATIVE; URINE PHENCYCLIDINE SCREEN NEGATIVE
[2019-01-01 20:32] LABS: ANION GAP 9 (5-19); BLOOD UREA NITROGEN 19 mg/dL (7-20); CALCIUM 8.7 mg/dL (8.4-10.2); CARBON DIOXIDE 27 mmol/L (22-30); CHLORIDE 104 mmol/L (98-107); GLUCOSE 96 mg/dL (75-110); POTASSIUM 4.2 mmol/L (3.6-5.0)
[2019-01-01 21:31] VITALS: BP 139/90
--- NOTE | 2019-01-01 23:48 | EKG REPORT ---
SEVERITY:- BORDERLINE ECG - SINUS RHYTHM BORDERLINE T WAVE ABNORMALITIES : Confirmed by: Tyrel Rodriguez 01-Jan-2019 23:47:47
== END 2019-01-01 22:22 | disposition home health service (06) ==
LOC: ER 15:27
DX: R41.0 Disorientation, unspecified (principal); E86.0 Dehydration; N17.9 Acute kidney failure, unspecified; I10 Essential (primary) hypertension
CPT/HCPCS: 93005; 99285; 96360; 96361; 36415; 87040; 82553; 82962; 80307 ×2; 82140; 83690; 85025; 85610; 80053; 81001; 84484; 83605; 83880; 70450; 93010; J7120

== ENCOUNTER 2019-12-31 13:06 | Emergency (ER) | payer MEDICARE, MEDICAID ==
--- NOTE | 2019-12-31 14:27 | ER Document Report ---
ED General - General Chief Complaint: Altered Mental Status Stated Complaint: CONFUSION Time Seen by Provider: 12/31/19 13:33 TRAVEL OUTSIDE OF THE [place] IN LAST 30 DAYS: No - HPI Notes: Chief complaint: Altered mental status History of present illness: 64-year-old male with history of dementia and bipolar disorder as well as chronic pain syndrome on multiple medications has b een seen numerous times here in the past for transient altered mental status often associated with urinary tract infection. He is living in an extended care facility and his caretakers are sending him back here today noting that he does not "seem himself" within the past 48 hours. He has apparently not been running a fever or vomiting and aside from his chronic lower back pain has no very specific complaints. He is not coughing or short of breath. He is on numerous chronic medications but they apparently have not been a recent changes in his medicines. - Related Data Allergies/Adverse Reactions: No Known Allergies Allergy (Verified 12/31/19 16:31) Home Medications: Atorvastatin, Benztropine, Gabapentin, Lactulose, Latuda, Lorazepam, Naproxen Past Medical History - General Information source: Patient, [facility] Records, Outside Facility Records Cannot obtain history due to: Dementia - Social History Smoking Status: Current Every Day Smoker Chew tobacco use (# tins/day): No Frequency of alcohol use: None Drug Abuse: None Family History: Reviewed & Not Pertinent - Past Medical History Cardiac Medical History: Reports: Hx Hypertension Renal/ Medical History: Denies: Hx Peritoneal Dialysis Psychiatric Medical History: Reports: Hx Bipolar Disorder Denies: Hx Depression - Immunizations Hx Diphtheria, Pertussis, Tetanus Vaccination: Yes Review of Systems - Review of Systems -: Yes ROS unobtainable due to patient's medical condition Physical Exam - Vital signs Vitals: Resp BP Pulse Ox 32 H 154/97 H 98 12/31/19 13:36 12/31/19 13:36 12/31/19 13:36 - Notes Notes: GENERAL: Male patient of approximately stated age appearing in no acute distress. SKIN: Good turgor no rashes. HEAD: Normocephalic atraumatic. EYES: PERRLA. EOMI. Conjunctivae and sclerae clear. EARS: CANALS AND TMS CLEAR. NOSE: CLEAR. MOUTH: Moist mucosa. Good dentition. No stridor or edema. No drooling. NECK: Supple. No masses or thyromegaly. No adenopathy. Carotids 2+ without bruits. No JVD. BACK: Symmetrical without tenderness. CHEST: Respirations unlabored. Breath sounds clear and symmetrical. Bilateral gynecomastia present. HEART: Regular rhythm. No murmur gallop or rub. ABDOMEN: Mildly obese. Soft nontender without masses, organomegaly or rebound. Bowel sounds normally active. No bruits. GENITALIA: Deferred. EXTREMITIES: Bilateral trace pretibial edema. No calf tenderness. Cap refill less than 1.5 seconds. Dorsalis pedis and posterior tibial pulses 3+ and symmetrical. NEUROLOGICAL: GCS 14. Eyes open spontaneously. Oriented to person and place but not to time. Follows commands appropriately. Moves all 4 extremities symmetrically.. Alert and oriented x3. Fluent speech. Cranial nerves II through XII intact. Sensorimotor and cerebellar normal. Normal tone. PSYCHIATRIC: Flat affect. Course - Re-evaluation Re-evalutation: 12/31/19 18:40 Extensive work-up here shows no significant acute findings. This man has a history of dementia and bipolar disorder. He carries on appropriate conversation with some mild confabulation and has no focal neurologic findings. He is disoriented to time but otherwise appears to be relatively at his usual baseline. I see nothing else that requires acute attention today and have suggested he follow-up with his primary care physician. - Vital Signs Vital signs: Temp Pulse Resp BP Pulse Ox 99.0 F 23 H 153/90 H 96 12/31/19 14:00 12/31/19 15:01 12/31/19 15:00 12/31/19 15:01 - Laboratory Result Diagrams: 12/31/19 13:55 12/31/19 13:55 Laboratory results interpreted by me: 12/31/19 12/31/19 12/31/19 13:55 13:55 13:55 RBC 4.21 L Hgb 12.7 L Hct 37.3 L VBG pH Chloride 108 H BUN 21 H Glucose 117 H ALT 59 H Urine Urobilinogen Valproic Acid < 10.0 L 12/31/19 12/31/19 14:33 15:56 RBC Hgb Hct VBG pH 7.43 H Chloride BUN Glucose ALT Urine Urobilinogen 2.0 H Valproic Acid - EKG Interpretation by Me Additional EKG results interpreted by me: 12/31/19 14:36 Twelve-lead EKG reviewed by me contemporaneously: 1417 hrs. Indication for study: Altered mental status Rhythm: Normal sinus with occasional PACs Rate: 79 Intervals: Normal QRS axis: Normal +[address]/T wave changes: None Comparison with prior tracing: None Interpretation: Normal tracing Discharge - Discharge Clinical Impression: Bipolar disease, chronic, Dementia Altered mental status Qualifiers: Altered mental status type: unspecified Qualified Code(s): R41.82 - Altered mental status, unspecified Condition: Stable Disposition: HOME, SELF-CARE
[2019-12-31 14:31] LABS: ABSOLUTE BASOPHILS # (AUTO) 0.1 10^3/uL (0.0-0.2); ABSOLUTE EOSINOPHILS # (AUTO) 0.2 10^3/uL (0.0-0.6); ABSOLUTE LYMPHOCYTES (AUTO) 1.8 10^3/uL (0.5-4.7); ABSOLUTE MONOCYTES (AUTO) 0.7 10^3/uL (0.1-1.4); BASOPHILS % (AUTO) 0.5 % (0-2); EOSINOPHILS % (AUTO) 1.8 % (0-6); HEMATOCRIT 37.3 % (37.9-51.0); HEMOGLOBIN 12.7 g/dL (13.5-17.0); LYMPHOCYTES % (AUTO) 18.6 % (13-45); MEAN CORPUSCULAR HEMOGLOBIN 30.2 pg (27.0-33.4); MEAN CORPUSCULAR HGB CONC 34.1 g/dL (32.0-36.0); MEAN CORPUSCULAR VOLUME 89 fl (80-97); MONOCYTES % (AUTO) 6.9 % (3-13); PLATELET COUNT 273 10^3/uL (150-450); RED BLOOD COUNT 4.21 10^6/uL (4.35-5.55); RED CELL DISTRIBUTION WIDTH 13.7 % (11.5-14.0); SEGMENTED NEUTROPHILS % (AUTO) 72.2 % (42-78); TOTAL CELLS COUNTED % (AUTO) 100 %; WHITE BLOOD COUNT 9.7 10^3/uL (4.0-10.5)
[2019-12-31 14:47] LABS: VENOUS BLOOD BASE EXCESS -0.3 mmol/L; VENOUS BLOOD HCO3 23.5 mmol/L (20-32); VENOUS BLOOD PCO2 36.1 mmHg (35-63); VENOUS BLOOD PH 7.43 (7.30-7.42)
--- NOTE | 2019-12-31 14:47 | RADIOLOGY REPORT (SQ) ---
EXAM DESCRIPTION: CHEST SINGLE VIEW IMAGES COMPLETED DATE/TIME: 12/31/2019 2:33 pm REASON FOR STUDY: AMS COMPARISON: 09/14/2018 EXAM PARAMETERS: NUMBER OF VIEWS: One view. TECHNIQUE: Single frontal radiographic view of the chest acquired. RADIATION DOSE: NA LIMITATIONS: None. FINDINGS: LUNGS AND PLEURA: No opacities, masses or pneumothorax. No pleural effusion. MEDIASTINUM AND HILAR STRUCTURES: No masses. Contour normal. HEART AND VASCULAR STRUCTURES: Heart normal in size. Normal vasculature. BONES: No acute findings. HARDWARE: None in the chest. OTHER: No other significant finding. IMPRESSION: NO ACUTE RADIOGRAPHIC FINDING IN THE CHEST. TECHNICAL DOCUMENTATION: JOB ID: [id number] 2010 [employer]- All Rights Reserved Reading location - IP/workstation name: [email or web address]
[2019-12-31 14:54] LABS: ALBUMIN 3.8 g/dL (3.5-5.0); ALKALINE PHOSPHATASE 74 U/L (38-126); ANION GAP 11 (5-19); ASPARTATE AMINO TRANSFERASE 52 U/L (17-59); BILIRUBIN,DIRECT 0.2 mg/dL (0.0-0.4); BILIRUBIN,TOTAL 0.3 mg/dL (0.2-1.3); BLOOD UREA NITROGEN 21 mg/dL (7-20); CARBON DIOXIDE 22 mmol/L (22-30); CHLORIDE 108 mmol/L (98-107); GLUCOSE 117 mg/dL (75-110); POTASSIUM 3.7 mmol/L (3.6-5.0); TOTAL PROTEIN 6.7 g/dL (6.3-8.2)
[2019-12-31 14:55] LABS: INTERNATIONAL RATION (INR) 1.05; PROTHROMBIN TIME 13.9 SEC (11.4-15.4)
[2019-12-31 14:56] LABS: PARTIAL THROMBOPLASTIN TIME 27.5 SEC (23.5-35.8)
[2019-12-31 14:57] LABS: ALCOHOL < 10 mg/dL (NONE DETECTED)
--- NOTE | 2019-12-31 15:10 | RADIOLOGY REPORT (SQ) ---
EXAM DESCRIPTION: CT HEAD WITHOUT IMAGES COMPLETED DATE/TIME: 12/31/2019 1:54 pm REASON FOR STUDY: AMS COMPARISON: 01/01/2019. TECHNIQUE: Axial images acquired through the brain without intravenous contrast. Images reviewed wi th bone, brain and subdural windows. Additional sagittal and coronal reconstructions were generated. Images stored on PACS. All CT scanners at this facility use dose modulation, iterative reconstruction, and/or weight based d osing when appropriate to reduce radiation dose to as low as reasonably achievable (ALARA). [facility]: Dose Right [facility]: CareDose [facility]: Dose Right [facility]: Teradose 4D [facility]: Smart [employer] RADIATION DOSE: CT Rad equipment meets quality standard of care and radiation dose reduction techniq ues were employed. CTDIvol: 53.2 mGy. DLP: 1070 mGy-cm. mGy. LIMITATIONS: None. FINDINGS: VENTRICLES: Normal size and contour. CEREBRUM: No masses. No hemorrhage. No midline shift. No evidence for acute infarction. Normal gra y/white matter differentiation. No areas of low density in the white matter. CEREBELLUM: No masses. No hemorrhage. No alteration of density. No evidence for acute infarction. EXTRAAXIAL SPACES: No fluid collections. No masses. ORBITS AND GLOBE: No intra- or extraconal masses. Normal contour of globe without masses. CALVARIUM: No fracture. PARANASAL SINUSES: No fluid or mucosal thickening. SOFT TISSUES: No mass or hematoma. OTHER: No other significant finding. IMPRESSION: NO ACUTE INTRACRANIAL IMAGING FINDINGS. EVIDENCE OF ACUTE STROKE: NO. COMMENT: Quality ID # [id number]: Final reports with documentation of one or more dose reduction techniques (e.g., Automated exposure control, adjustment of the mA and/or kV according to patient size, use of iterative reconstruction technique) TECHNICAL DOCUMENTATION: JOB ID: [id number] 2010 [employer]- All Rights Reserved Reading location - IP/workstation name: [email or web address]
[2019-12-31 16:36] LABS: AMORPHOUS SEDIMENT,URINE TRACE /HPF; APPEARANCE,URINE SLIGHTLY-CLOUDY; BILIRUBIN,URINE NEGATIVE (NEGATIVE); COLOR,URINE YELLOW; GLUCOSE, URINE NEGATIVE (NEGATIVE); KETONES,URINE NEGATIVE (NEGATIVE); LEUKOCYTE ESTERASE,URINE NEGATIVE (NEGATIVE); NITRITE,URINE NEGATIVE (NEGATIVE); PROTEIN,URINE NEGATIVE (NEGATIVE); URINE SPECIFIC GRAVITY 1.014
[2019-12-31 16:51] LABS: URINE AMPHETAMINES SCREEN NEGATIVE; URINE BARBITURATES SCREEN NEGATIVE; URINE BENZODIAZEPINES SCREEN NEGATIVE; URINE COCAINE SCREEN NEGATIVE; URINE MARIJUANA (THC) SCREEN NEGATIVE; URINE METHADONE SCREEN NEGATIVE; URINE PHENCYCLIDINE SCREEN NEGATIVE
--- NOTE | 2019-12-31 17:37 | EKG REPORT ---
SEVERITY:- BORDERLINE ECG - SINUS RHYTHM ATRIAL PREMATURE COMPLEX BORDERLINE T WAVE ABNORMALITIES : Confirmed by: Nicholas Collier MD 31-Dec-2019 17:36:58
[2019-12-31 18:59] VITALS: BP 140/76
== END 2019-12-31 20:04 | disposition home or self-care (01) ==
LOC: ER 13:06
DX: R41.82 Altered mental status, unspecified (principal); F31.9 Bipolar disorder, unspecified; F03.90 Unspecified dementia, unspecified severity, without behavioral disturbance, psychotic disturbance, mood disturbance, and anxiety; F17.200 Nicotine dependence, unspecified, uncomplicated; I10 Essential (primary) hypertension
CPT/HCPCS: 36415; 70450; 71045; 80053; 80164; 80307; 81001; 82140; 82803; 83735; 85025; 85610; 85730; 87040; 93005; 93010; 99285